=== PATIENT | male | born 1945 | race Caucasian/White ===

== ENCOUNTER 2021-09-06 05:12 | Outpatient (REF) | payer OTHER, SELFPAY ==
--- NOTE | ~2021-09-06 | XR_ITS ---
EXAMINATION: XR PELVIS XR HIP, RIGHT CLINICAL INFORMATION: Right hip pain. COMPARISON: None. TECHNIQUE: AP view the pelvis. AP and frog-leg lateral views of the right hip. FINDINGS: No acute fracture or dislocation. Severe right hip joint space narrowing with subchondral cirrhosis and subchondral cystic change. Prominent marginal osteophytes. Right femoral neck buttressing. Wlkbnueh-fj-mehycu left hip joint space narrowing with subchondral sclerosis and marginal osteophytes. Lateral acetabular subchondral cystic change. Atherosclerotic calcifications. XR/XR pelvis 1-2V IMPRESSION: Severe right and yhxltssy-ak-pbqeim left hip osteoarthritis.
--- NOTE | ~2021-09-06 | XR_ITS ---
EXAMINATION: XR KNEES AP STANDING, BILATERAL XR KNEE, 2 VIEWS, LEFT CLINICAL INFORMATION: Pain. COMPARISON: Left knee radiographs dated 12/21/2019 TECHNIQUE: Standing AP view of both knees and lateral and sunrise views of the left knee. FINDINGS: Right knee: Mild medial compartment joint space narrowing. Tiny medial and lateral compartment marginal osteophytes. No osseous erosion. No fracture or dislocation. Left knee: Total left knee arthroplasty. No acute osseous or hardware fracture. No perihardware lucency to suggest loosening or infection. No significant joint effusion. Superior patellar enthesophytes. XR/XR knee LT 2V IMPRESSION: Right knee: Mild medial and lateral compartment osteoarthritis, unchanged. Left knee: Total knee arthroplasty without evidence of hardware complication.
--- NOTE | ~2021-09-06 | XR_ITS ---
EXAMINATION: XR KNEES AP STANDING, BILATERAL XR KNEE, 2 VIEWS, LEFT CLINICAL INFORMATION: Pain. COMPARISON: Left knee radiographs dated 12/21/2019 TECHNIQUE: Standing AP view of both knees and lateral and sunrise views of the left knee. FINDINGS: Right knee: Mild medial compartment joint space narrowing. Tiny medial and lateral compartment marginal osteophytes. No osseous erosion. No fracture or dislocation. Left knee: Total left knee arthroplasty. No acute osseous or hardware fracture. No perihardware lucency to suggest loosening or infection. No significant joint effusion. Superior patellar enthesophytes. XR/XR knee standing BI IMPRESSION: Right knee: Mild medial and lateral compartment osteoarthritis, unchanged. Left knee: Total knee arthroplasty without evidence of hardware complication.
--- NOTE | ~2021-09-06 | XR_ITS ---
EXAMINATION: XR PELVIS XR HIP, RIGHT CLINICAL INFORMATION: Right hip pain. COMPARISON: None. TECHNIQUE: AP view the pelvis. AP and frog-leg lateral views of the right hip. FINDINGS: No acute fracture or dislocation. Severe right hip joint space narrowing with subchondral cirrhosis and subchondral cystic change. Prominent marginal osteophytes. Right femoral neck buttressing. Dgspuzpn-kr-yatgfb left hip joint space narrowing with subchondral sclerosis and marginal osteophytes. Lateral acetabular subchondral cystic change. Atherosclerotic calcifications. XR/XR hip RT min 2V IMPRESSION: Severe right and jexbwsvd-os-gqeakm left hip osteoarthritis.
== END 2021-09-06 05:13 | disposition home or self-care (01) ==
LOC: HO.HOSX 05:12
PROVIDERS: Visit Provider Physician Assistant
DX: T84.84XA Pain due to internal orthopedic prosthetic devices, implants and grafts, initial encounter (principal); M25.551 Pain in right hip; M25.561 Pain in right knee; M16.11 Unilateral primary osteoarthritis, right hip; Z96.652 Presence of left artificial knee joint
CPT/HCPCS: 72170; 73502; 73560; 73565; 99212

== ENCOUNTER → 2021-09-27 09:15 | Outpatient (BNVA) | payer OTHER, SELFPAY | PROVIDERS: PCP Internal Medicine; Visit Provider Orthopaedic Surgery | DX: M16.11 Unilateral primary osteoarthritis, right hip (principal); Z96.652 Presence of left artificial knee joint | CPT/HCPCS: 99212 ==

== ENCOUNTER → 2021-11-07 08:56 | Outpatient (BNVA) | payer OTHER, SELFPAY | PROVIDERS: Visit Provider Orthopaedic Surgery ==

== ENCOUNTER → 2021-12-06 08:46 | Outpatient (BNVA) | payer OTHER, SELFPAY | PROVIDERS: Visit Provider Physician Assistant | DX: M16.11 Unilateral primary osteoarthritis, right hip (principal) | CPT/HCPCS: 99212 ==

== ENCOUNTER 2021-12-14 06:33 | Inpatient (IN) | payer OTHER, SELFPAY ==
[2021-11-26 15:29] VITALS: BMI 25.8
[2021-11-27 11:58] VITALS: BP 144/78; PULSE 65; RESP 16; O2SAT 97
[2021-11-28 08:33] LABS: MRSA Nasal PCR NEGATIVE (Negative); SA Nasal PCR POSITIVE (Negative)
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
[2021-12-14] VITALS (18 sets, daily range): BP systolic 127–175; BP diastolic 63–90; PULSE 67–89; RESP 10–20; TEMP 36.2–36.8; O2SAT 94–99
--- NOTE | ~2021-12-14 | XR_ITS ---
EXAMINATION: XR PELVIS CLINICAL INFORMATION: Post right hip replacement COMPARISON: Previous x-ray August 2021 TECHNIQUE: AP view of the pelvis. FINDINGS: There is a new right hip replacement in satisfactory position. No fracture or dislocation is seen. Bones of the pelvis are unremarkable. There are degenerative changes of the left hip joint. There are new postsurgical changes to the soft tissues. XR/XR pelvis 1-2V IMPRESSION: Satisfactory appearance of right hip replacement.
[2021-12-14] MEDS: oxyCODONE HCl ER 10 MG TAB.ER.12H PO ×2 (06:45→20:40)
[2021-12-14 06:48] LABS: COVID-19 Test Negative (Negative)
[2021-12-14] MEDS: Lactated Ringers 1,000 ML 100 ML IVCONT (06:55)
--- NOTE | 2021-12-14 08:06 | MHC.SHP ---
Pre-Procedural Eval Section A Date of Service: 12/14/21 The patient is an INPATIENT: No Changes since office visit: Yes Patient answered all questions; No Cold of Flu in the past 2 weeks, No New Medical Problems and No Changes in Medication The History & Physical has been completed within 30 days and I have reviewed it.: Yes Section B Chief Complaint: RT ORQUIDEA Allergies: Allergies Allergy/AdvReac Type Severity Reaction Status Date / Time latex [LATEX] Allergy Intermediate RASH Verified 12/06/21 09:07 lisinopril Allergy Intermediate shortness Verified 12/06/21 09:07 of breath Plan I have reviewed the history and physical and performed a pertinent physical examination on my patient. No changes have occurred unless specified.
--- NOTE | 2021-12-14 10:09 | PM.OP ---
Brief Operative Note Date of Service: 12/14/21 Pre-op diagnosis: right hip OA Post-op diagnosis: same Procedure: Right ORQUIDEA Implants: John trident 2 56 with 20 post lip liner Accolade 2 #6 127 deg with + 5 36 mm ceramic head Surgeon: Dio Mcduffie MD Anesthesia: GETA and regional Was an Binding Printer used for this Procedure?: Yes Binding Printer: Kay Sandhu Estimated blood loss (mL): 300 IV fluids (mL): 1,000 Pathology: other Condition: stable Disposition: PACU
[2021-12-14] MEDS: fentaNYL citrate/PF 100 MCG/2 ML VIAL 25 MCG IVPUSH ×4 (10:11→12:30)
[2021-12-14] MEDS: Dextrose 5 % and 0.45 % NaCl 1,000 ML 80 ML IVCONT (10:35)
[2021-12-14] MEDS: oxyCODONE HCl Immed Release 5 MG TABLET PO ×2 (10:40→18:16)
[2021-12-14] MEDS: ceFAZolin Sodium/Dextrose,Iso 2 GM/50 ML PIGGYBACK IV (14:12)
--- NOTE | 2021-12-14 14:57 | MHC.CM.PN ---
CM ATTEMPTED TO MEET W/PT HOWEVER PT STILL IN PACU, REFERRAL SENT TO [facility] IN ANTIC OF W/E D/C.
[2021-12-14] MEDS: Acetaminophen 325 MG TABLET 650 MG PO (16:36)
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
[2021-12-14] MEDS: Celecoxib 200 MG CAPSULE PO (20:40)
[2021-12-14] MEDS: Docusate Sodium 100 MG CAPSULE PO (20:40)
[2021-12-14] MEDS: 0.9 % Sodium Chloride Flush 3 ML SYRINGE IVFLUSH (23:48)
[2021-12-15 04:00] VITALS: BP 130/60; PULSE 73; RESP 20; TEMP 36.5; O2SAT 96
[2021-12-15 06:15] LABS: Basophils Percent Auto 0.1 % (0-2); Hematocrit 34.7 % (42.0-52.0); Hemoglobin 11.8 g/dl (14.0-18.0); Imm Gran Abs Auto 0.05 X10*3/uL (0.00-0.03); Imm Gran Pct Auto 0.4 % (0.0-0.4); Lymphocytes Absolute Auto 1.3 X10*3/uL (1.2-4.9); Lymphocytes Percent Auto 9.2 % (20-40); MANUAL DIFF FLAG SCAN; Mean Corpuscular Hemoglobin 31.3 pg (27.0-33.0); Mean Platelet Volume 11.3 fL (9.4-12.4); Monocytes Absolute Auto 1.8 X10*3/uL (0.1-1.2); Monocytes Percent Auto 12.4 % (2-11); Neutrophils Percent Auto 77.9 % (45-73); Platelet Count 162 X10*3/uL (160-400); Red Blood Count 3.77 X10*6/uL (4.60-5.80); Red Cell Distribution Width 12.2 % (11.0-16.0); SCAN SMEAR FLAG 1; White Blood Count 14.2 X10*3/uL (4.8-10.8)
[2021-12-15 06:28] LABS: Anion Gap 13 (12-20); Blood Urea Nitrogen 26 mg/dL (9-16); Calcium 8.9 mg/dL (8.4-10.2); Carbon Dioxide 23 mmol/L (22-29); Chloride 104 mmol/L (96-108); Creatinine Clr Calc Pharmacy 56.9; Estimated Glomerular Filt Rate > 60; Glucose Fasting 197 mg/dL (60-99); Potassium 4.4 mmol/L (3.3-5.1); Sodium 136 mmol/L (135-145)
[2021-12-15 06:36] LABS: SLIDE REVIEW VERIFIED
[2021-12-15 07:46] VITALS: BP 130/60; PULSE 73; O2SAT 96
[2021-12-15 08:00] VITALS: BP 126/61; PULSE 80; RESP 20; TEMP 36.5; O2SAT 95
--- NOTE | 2021-12-15 08:47 | MHC.CM.PN ---
PATIENT WILL RETURN HOME TODAY WITH [facility] FOR HOME PHYSICAL AND OCCUPATIONAL SERVICES. RN AWARE OF PLAN. PATIENT HAS TRANSPORT HOME
[2021-12-15] MEDS: oxyCODONE HCl ER 10 MG TAB.ER.12H PO (08:57)
[2021-12-15] MEDS: Celecoxib 200 MG CAPSULE PO (08:57)
[2021-12-15] MEDS: Docusate Sodium 100 MG CAPSULE PO (08:57)
[2021-12-15] MEDS: 0.9 % Sodium Chloride Flush 3 ML SYRINGE IVFLUSH (08:58)
--- NOTE | 2021-12-15 09:15 | P.F2F_ITS ---
Service Date Service Date: 12/15/21 Encounter Date of encounter: 12/15/21 Reasons for Services Signs and symptoms assessed: Pt. is considered homebound due to recent surgery. Unable to drive, poor balance, poor gait mechanics. Reason for physical therapy: home safety and mobility, therapeutic exercises, restore joint function, gait/transfer training and ADL training Reason for occupational therapy: home safety and mobility, therapeutic exercises, restore joint function, gait/transfer training and ADL training Homebound: Leaving the home is medically contraindicated at this time without the asist of a device and/or another person due th the listed conditions above and below. Reason homebound: unsteady gait / fall risk, leg weakness, pain with ambulation, pain with transfers, poor balance / fall risk and unable to drive Homebound supporting statement: Pt. is considered homebound due to recent surgery. Unable to drive, poor balance, poor gait mechanics. Certification: Based on the above findings, I certify that this patient is confined to the home and needs intermittent halfway care, physical therapy and/or speech therapy, or continues to need occupational therapy. The patient is under my care, and I have initiated the establishment of the plan of care. The patient will be followed by a physician who will periodically review the plan of care.
--- NOTE | 2021-12-15 09:16 | PM.DS ---
DS: Providers Provider Date of Service: 12/15/21 Date of admission: 12/14/21 06:33 Primary care physician: Leonel Contreras Consults: 12/14/21 16:01 Consult to Hospitalist Routine Consulting Provider: Hospitalist Reason For Exam: s/p RTHA routine medical management DS: Diagnosis Discharge Diagnosis (1) Osteoarthritis of right hip: Status: Acute (2) Fluctuating blood pressure: Status: Acute DS: Summary Hospital Course Hospital Course: The patient underwent a successful Right total hip arthroplasty, they were transferred to PACU and then to the floor to recover. During their stay, their vitals were stable, afebrile at 97.7. Labs were unremarkable, H/H 11.8/34.7. POD 1 they were started on Aspirin 325mg po bid for DVT ppx, they also received Physical Therapy services twice a day. Prior to discharge, their dressing was changed, incision clean dry and intact, new Aquacel dressing applied and the plan was to be discharged home with [facility] services. Time Spent with Patient Time attestation: Total time spent providing and/or coordinating discharge services: Discharge coordination time: Less than 30 minutes Quality: Stroke Does the patient have a stroke diagnosis?: No Physical Exam Vital Signs: Vital Signs: Last Vital Signs Temp 97.7 F 12/15/21 08:00 Pulse 80 12/15/21 08:00 Resp 20 12/15/21 08:00 BP 126/61 12/15/21 08:00 Pulse Ox 95 12/15/21 08:00 BMI result Body Mass Index 25.8 Const: General: cooperative, healthy appearing and no acute distress Resp: Effort & Inspection: normal respiratory effort and able to speak in complete sentences Cardio: Rate: regular rate Peripheral pulses: Peripheral pulses 2+ throughout GI: Palpation (GI): Soft to palpation Skin: Lesions: no lesions Rashes: no rashes Extrem: Other: Left hip amanda intact. No erythema or drainage. New Aquacel dressing applied. Patient is able to stand and ambulate. Sensation intact. DS: Data Data Completed and Pending Pending studies at discharge: Pending at discharge 12/14/21 09:34 Surgical [PTH] Routine Labs on day of discharge: Laboratory Results - last 24 hr 12/15/21 12/15/21 05:56 05:56 WBC 14.2 H RBC 3.77 L Hgb 11.8 L Hct 34.7 L MCV 92.0 MCH 31.3 MCHC 34.0 RDW 12.2 Plt Count 162 MPV 11.3 Immature Gran % (Auto) 0.4 Neut % (Auto) 77.9 H Lymph % (Auto) 9.2 L [place] % (Auto) 12.4 H Eos % (Auto) 0.0 Baso % (Auto) 0.1 Lymph # (Auto) 1.3 [place] # (Auto) 1.8 H Eos # (Auto) 0.0 Baso # (Auto) 0.0 Abs Immat Gran (auto) 0.05 H Absolute Neuts (auto) 11.0 H Absolute Nucleated RBC 0.000 Nucleated RBC % (auto) 0.0 Smear Tech's Comments VERIFIED Sodium 136 Potassium 4.4 Chloride 104 Carbon Dioxide 23 Anion Gap 13 BUN 26 H Creatinine 1.12 Estim Creat Clear Calc 56.9 Estimated GFR > 60 Fasting Glucose 197 H Calcium 8.9 Discharge Plan Discharge Patient Disposition: Home Health Service Discharge Diagnosis: s/p RTHA Referrals: [facility] [Outside] - 1 Week Kay Sandhu PA-C [Physician Rent And Housing Investigator] - 1 Week (12/27/20 at 10:00am with your first physical therapy visit in the orthopedics office ) Discharge Medications: New acetaminophen 325 mg Tablet 650 mg PO Q6H PRN (Reason: Pain, Mild (Pain Scale 1-3)) 30 Days Qty: 240 RF: 0 celecoxib 200 mg Capsule 200 mg PO BID 30 Days Qty: 60 RF: 0 docusate sodium 100 mg Capsule 100 mg PO BID 30 Days Qty: 60 RF: 0 oxycodone 5 mg Tablet 5 mg PO Q4H PRN (Reason: Pain, Moderate (Pain Scale 4-6) 7 Days Qty: 42 RF: 0 Discharge Orders: Discharge Order (Routine); Ordered 12/15/21 Ordered By: Kay Sandhu Diet: regular diet Activity on Discharge: Use cane or walker Stand Alone Forms: Patient Portal Discharge page Care Plan Goals: restore fxn to rt hip Health Concerns: none Plan of Treatment: Physical Therapy for total hip arthroplasty: posterior precautions, gait training, ROM, strength Limit stair climbing No showering, no tub bath-keep dressing clean, dry and intact No driving x6 weeks Continue aspirin tabs twice a day x 6 weeks Follow up with [facility] Orth[facility] in 2 weeks Assessment: table for d/c
--- NOTE | 2021-12-17 07:22 | HO.POSTANES ---
Post Anesthesia Evaluation Post Anesthesia Evaluation Anesthesia: General LMA Mental Status: Awake Pain Control: Satisfactory Nausea/Vomiting: None Hydration: Adequate Anesthesia-Related Issues: No Anes. Related Issues
--- NOTE | 2021-12-18 14:08 | W.PM.OPN ---
Operative Note Operative Note Date of Service: 12/14/21 Narrative: Date of Service: 12/14/21 Pre-op diagnosis: right hip OA Post-op diagnosis: same Procedure: Right ORQUIDEA Implants: Goree trident 2 56 with 20 post lip liner Accolade 2 #6 127 deg with + 5 36 mm ceramic head Surgeon: Dio Mcduffie MD Anesthesia: GETA and regional Was an Principal Consultant used for this Procedure?: Yes Principal Consultant: Kay Sandhu Estimated blood loss (mL): 300 IV fluids (mL): 1,000 Pathology: other Condition: stable Disposition: PACU Procedure in detail: Patient was brought into the operating room and placed in the left lateral decubitus position. All bony prominences were well padded and the limb was prepped and draped in standard sterile fashion. Time-out was called to identify proper site procedure proper surgeon IV antibiotics and 1 g of transaxemic acid were administered. I began by making a curvilinear incision over the posterolateral aspect of the greater trochanter. Dissection was taken down to the tensor fascia which was incised in line with the incision and a Charnley retractor was placed. Cautery was used to maintain hemostasis. A werewolf device was also used. The hip was internally rotated and the external rotators were identified. The vessels were cauterized and a full-thickness capsular/external rotator layer was developed starting just proximal to the piriformis. This layer was tagged and a dull Hohmann retractor was placed underneath the neck in the hip was dislocated. The head waseburnated and defromed. A neck cut was made 1 cm proximal to the lesser trochanter and the head and neck were removed and measured as a 52 on the back table. I started with a 46 and sequentially reamed up to a size 56 and impacted a 56 cup_ at approximately 45 degrees of inclination and 25 degrees of version. I then placed a20 deg posterior lipped liner and turned my attention to the femur. I identified the piriformis insertion and used this as a starting point for my janie cutter. The medius tendon was protected with a Hibs retractor. I then used a Charnley awl to identify the canal and a curved curette to remove the lateral bone. I irrigated copiously. I then sequentially broached in the patient's natural version to a size #6 and placed my trial implants. Using a trail head I took the hip through range of motion. I was very satisfied with the stability and length. Therefore I removed all instrumentation and copiously irrigated. I placed my final femoral implant and again took the hip through range of motion and was satisfied with the stability and length using a +5 implant. I then placed my final ceramic femoral head. I then irrigated for 3 minutes with iodine and placed 1 g of local tranaxemic acid. I then performed a capsular closure with 2.0 fiberwire, Rodri's fascia with 0 Vicryl, subcuticular with 2-0 Vicryl and the skin with amanda. Patient was placed into a sterile dressing. Radiographs were obtained at the completion of the case and I was satisfied with the component position. Patient was extubated brought to the recovery room in stable condition.
== END 2021-12-15 10:18 | disposition home health service (06) | DRG 470 ==
LOC: HO.SSSA 06:35 → HO.S3 14:33
PROVIDERS: Nurse Practitioner; Physician Assistant; Admitting Provider Orthopaedic Surgery; PCP Internal Medicine; Visit Provider Orthopaedic Surgery
PROC: 0SR903A Replacement of Right Hip Joint with Ceramic Synthetic Substitute, Uncemented, Open Approach (ICD-10-PCS; CPT 27130; principal; 2021-12-14 08:00)
DX: M16.11 Unilateral primary osteoarthritis, right hip (principal); Z96.651 Presence of right artificial knee joint; Z87.891 Personal history of nicotine dependence; Z91.040 Latex allergy status; Z20.822 Contact with and (suspected) exposure to COVID-19
CPT/HCPCS: 36415; 72170; 80048; 85025; 86850; 86900; 86901; 87635; 87640; 87641; 88304; 88311; 97162; C1713; C1776; J0131; J0690; J1100; J1170; J2250; J2405; J3010

== ENCOUNTER → 2021-12-31 09:52 | Outpatient (BNVA) | payer OTHER, SELFPAY | PROVIDERS: PCP Internal Medicine; Visit Provider Physician Assistant | DX: Z47.1 Aftercare following joint replacement surgery (principal); Z96.641 Presence of right artificial hip joint | CPT/HCPCS: 99212 ==

== ENCOUNTER 2022-01-29 09:00 | Outpatient (RCR) | payer MEDICARE, SELFPAY ==
--- NOTE | 2021-12-31 11:08 | MHC.PT.EP ---
[place] Office [place] Office [place] Office [address] Caren Chavez [address] [phone] F: [phone] F: [phone] F: [phone] F: [phone] Physical Therapy Plan of Care Date of Evaluation: Date of Surgery: 12/18/21 Diagnosis: Assessment: VICTORIA IS A PLEASANT 76 YO MALE WHO PRESENTS S/P RIGHT ORQUIDEA 12/14. UPON EXAM HE DEMONSTRATES IMPAIRMENTS INCLUDING DECREASED HIP STRENGTH AND ROM, ALTERED GAIT AND BALANCE, ALTERED SOFT TISSUE INTERGRITY, INCREASED DISCOMFORT. FUNCTIONAL LIMITTIONS INCLUDE DECREASED ABILITY TO PERFOMR WALKING LONG DISTANCES, PUSHING, PULLING, LIFTING AND CARRYING, DECREASED ABILITY TO PERFORM RECIPROCAL GAIT ON STAIRS. HE REPORTS DECREASED ABILITY TO PERFORM RECREATIONAL AND COMMUNITY ACTIVITIES. HE REPORTS SOME DIFFICULTY SLEEPING. A PT IS A GOOD CANDIDATE FOR SKILLED PT DUE TO AGE, POTENTIAL REMEDIATION OF IMPAIRMENTS, TYPICAL DISEASE/CONDITION PROGRESSION AND PROGNOSIS, COMORBIDITIES, AND MOTIVATION. PT WOULD BENEFIT FROM TAILORED PROGRAM OF THERAPEUTIC ACTIVITIES, FUNCTIONAL TRAINING, GAIT TRAINING, POSTURAL EDUCATION, NEUROMUSCULAR RE-EDUCATION, AND MODALITIES NEEDED. Frequency and Duration: The patient will be seen 2 X WEEK X 4 WEEKS Short Term Goals: INITIATE HEP AND PROMOTE SELF MANAGEMENT OF SYMPTOMS IN 2 VISITS Senior Living Goals: IN 6 WEEKS: TO DEMONSTRATE FULL HIP ROM, MAINTAINING PRECAUTIONS TO DEMONSTRATE FULL LE STRENGTH, EQUAL PAL TO ASCEND AND DESCEND STAIRS WITHOUT PAIN TO AMBULATE AD BOBO ON LEVEL AND UNEVEN SURFACES FOR FITNESS, A MINIMUM OF 30 MINUTES, WITHOUT PAIN GREATER THAN 2/10 TO PERFORM PARTIAL RANGE FUNCTIONAL SQUAT WITHOUT SUBSTITUTION MAINTAINING PRECAUTIONS TO RETURN TO LIGHT HIKING WITHOUT RESTRICTION Treatment Plan: Modalities to reduce pain, spasms and effusion. Manual therapy to restore motion and function. Therapeutic exercise to improve strength and flexibility. Neuromuscular re-education for posture and balance. Therapeutic activities to return to functional activities of daily living. Electronically signed by: TAI POWER PT, DPT Please sign and return to therapist. Thank you for your referral.
--- NOTE | 2022-01-29 15:34 | MHC.PT.OD ---
[facility] [place] Office [place] Office [address] Caren Chavez [address] [phone] F: [phone] F: [phone] F: [phone] F: [phone] Physical Therapy Daily Note Diagnosis: S/P TIGHT ORQUIDEA, POSTERIOR APPROACH Date of Surgery: 12/18/21 Date of Evaluation: 12/31/21 Date of Treatment: 01/29/22 Treatments to Date: 5 Cancellations to Date: 0 No Shows to Date: 0 Authorized Visits: Insurance End Date: Precautions/ Contraindications:POSTERIOR APPROCH ORQUIDEA Subjective: Reports has been having ongoing L knee pain, was trying to walk 40 minute increments several times daily, has been icing hip sometimes, not icing knee consistently Follow up with orthopedics on 02/11/22 Pain Score and Location: 2 RIGHT POSTEROLATERAL HIP Objective Flowsheet: Tests & Measures TTP anterior lateral left knee Advised to refrain from wall squat, encouraged increased stretching of HS and ITB region of L thigh, reviewed rolling with use of rolling pin manually, backing off on ramping multiple duration of hills/walking. Exercises Education reiterated today with patient and regarding current status and home program. Pt reports ongoing L anterior knee pain- was advised to stretch L HS and ITB, complete SLR for strength and progress as tolerated. Pt reports he walked 40 minutes 2x daily and was going to try for a third round. Pt educated he needs to give mm time and recover gradually with progression of home program. Pt request to review verbally today- did not complete in office- SLR into flexion reviewed for L LE (advised to hold for R LE due to flare of sx), LAQ for R LE only (held due to L LE due to flare of L knee sx last week), SL hip abd with pillow between knees bilaterally x 2 set 10R, review of standing chair squat with cues for hand placement education for modification being aware of hip angle, Education for gentle and gradual walking program, pt expressing has been walking 40 minutes several times daily. Therapist encouraged to back from walking multiple times daily as this appeared to be a trigger for his knee, encouraged stretching and icing as able. REVIEW 01/24 TOTAL HIP POSTERIOR PRECAUTIONS WITH HIREN PRESENT FOR EDUCATION WELL REVIEWED safety with BED MOBILITY, USE OF PILLOW BETWEEN KNEES PT INQUIRED ABOUT USE OF RECUMBNET TRIKE AT HOME- ADVISED TO HOLD FROM USE DUE TO CONCERN FOR BREACH OF POSTERIOR PRECAUTION- EDUCATED RE ICE POSTERIOR AND ANTERIOR HIP X 10 MINUTES PRN FOR EDEMA/PAIN MANAGEMENT DISCUSSED WALKING ON FLAT TERRAIN BUILDING ENDURANCE/DISTANCE FIRST VS BEFORE ATTEMPING HILLS, EDUCATION BUILDING WALKING PROGRAM GRADUALLY Pt deferred icing today to home, reeducated importance of stretching/icing post walking program Positioned in SL for flexbar STM to proximal /posterior hip region with education for home, self care with pillow between the knees. Modalities Assessment: 01/29/22 Pt reports ongoing L knee pain, resolution of R groin pain since last week. Pt has resumed walking program but was educated in the importance of gradual progression of distance/time with his walks gradually continue flexibility for HS and L ITB, expresses concern for L TKA status. Pt educated that therapist feels his sx are related to tightness and tension of mm strength of L quad. His also reports she has not been icing knee>hip as much as often, encouraged to continue compliance, especially after HEP/walking program. 01/22/22: Pt's L HS tight compared to R, weakness with SLR on L. Advised to hold on R SLR due to intermittent groin pain reported. Trial ROCKTAPE application for L knee to ease anterior knee pain with (+) outcomes. Pt reports sometimes uses supportive sleeve on L knee, to bring next session. Upon review of HEP program, pt was performing exercises quickly, present for home program with positive carryover of proper technique. 01/15/22 Pt presents with sneakers with elastic laces, demonstrates good carryover of precautions however has reported waking in AM with legs crossed over one another despite use of pillows at times. Reiterated avoidance of trike and encouraged gradual progression of home program. Pt educated re: avoidance of HEP activities which trigger any groin pain, reviewed stair sequencing, , benefits of icing, and building walking distance gradually. Presents without use of std cane, good carryover of HEP program with Hiren present who also was educated with technique. Good safety insight for gentle home program. 01/07/22 PT EDUCATED ALONGSIDE HIREN RE: HEP AND SAFETY IN REGARD TO HEP/QUESTIONS HE HAD, EDUCATED TO HOLD FROM USE OF TRIKE RECUMBENT BIKE DUE TO CONCERN FOR BREECH OF POSTERIOR PRECAUTIONS- PT TO BE SEEN IN THERAPY 1X/WEEK FOR NOW WITH PROGRESSIVE HOME PROGRAM. VICTORIA IS A PLEASANT 76 YO MALE WHO PRESENTS S/P RIGHT ORQUIDEA 12/14. UPON EXAM HE DEMONSTRATES IMPAIRMENTS INCLUDING DECREASED HIP STRENGTH AND ROM, ALTERED GAIT AND BALANCE, ALTERED SOFT TISSUE INTERGRITY, INCREASED DISCOMFORT. FUNCTIONAL LIMITTIONS INCLUDE DECREASED ABILITY TO PERFOMR WALKING LONG DISTANCES, PUSHING, PULLING, LIFTING AND CARRYING, DECREASED ABILITY TO PERFORM RECIPROCAL GAIT ON STAIRS. HE REPORTS DECREASED ABILITY TO PERFORM RECREATIONAL AND COMMUNITY ACTIVITIES. HE REPORTS SOME DIFFICULTY SLEEPING. A PT IS A GOOD CANDIDATE FOR SKILLED PT DUE TO AGE, POTENTIAL REMEDIATION OF IMPAIRMENTS, TYPICAL DISEASE/CONDITION PROGRESSION AND PROGNOSIS, COMORBIDITIES, AND MOTIVATION. PT WOULD BENEFIT FROM TAILORED PROGRAM OF THERAPEUTIC ACTIVITIES, FUNCTIONAL TRAINING, GAIT TRAINING, POSTURAL EDUCATION, NEUROMUSCULAR RE-EDUCATION, AND MODALITIES NEEDED. PT Plan: Pt electing to cancel all other appts at PT at this , due to I HEP. Pt has a follow up on 02/11. Pt has been advised to hold from use of trike due to concern for posterior precautions- please advise. Short Term Goals: INITIATE HEP AND PROMOTE SELF MANAGEMENT OF SYMPTOMS IN 2 VISITS Retirement Goals: IN 6 WEEKS: TO DEMONSTRATE FULL HIP ROM, MAINTAINING PRECAUTIONS TO DEMONSTRATE FULL LE STRENGTH, EQUAL PAL TO ASCEND AND DESCEND STAIRS WITHOUT PAIN TO AMBULATE AD BOBO ON LEVEL AND UNEVEN SURFACES FOR FITNESS, A MINIMUM OF 30 MINUTES, WITHOUT PAIN GREATER THAN 2/10 TO PERFORM PARTIAL RANGE FUNCTIONAL SQUAT WITHOUT SUBSTITUTION MAINTAINING PRECAUTIONS TO RETURN TO LIGHT HIKING WITHOUT RESTRICTION Electronically signed by: Audrey Whitman, PT, DPT
== END 2022-06-07 13:53 | disposition home or self-care (01) ==
LOC: HO.PTWFD 09:00
PROVIDERS: Visit Provider Physician Assistant
DX: Z98.890 Other specified postprocedural states (principal)
CPT/HCPCS: 97110; 97140; 97161; 97530

== ENCOUNTER 2022-02-11 07:49 | Outpatient (REF) | payer MEDICARE, SELFPAY ==
--- NOTE | ~2022-02-11 | XR_ITS ---
EXAMINATION: XR HIP, RIGHT CLINICAL INFORMATION: Right hip pain COMPARISON: None TECHNIQUE: Two views of the right hip. FINDINGS: There is a total right hip prosthesis with prosthetic components in satisfactory alignment. Mild loss of left hip joint space is seen. SI joints are symmetrical and normal. AP and frog-leg views right hip reveal normal alignment of the right hip prosthesis without any periprosthetic loosening or fracture. The soft tissues are normal. XR/XR hip RT w PEL1V IMPRESSION: Mild degenerative changes left hip joint. Total right hip prosthesis with prosthetic components in satisfactory alignment.
== END 2022-02-11 07:50 | disposition home or self-care (01) ==
LOC: HO.HOSX 07:49
PROVIDERS: Visit Provider Physician Assistant
DX: Z47.1 Aftercare following joint replacement surgery (principal); Z96.641 Presence of right artificial hip joint
CPT/HCPCS: 73502; 99212

== ENCOUNTER → 2022-03-25 09:15 | Outpatient (BNVA) | payer MEDICARE, SELFPAY | PROVIDERS: Visit Provider Orthopaedic Surgery | DX: Z47.1 Aftercare following joint replacement surgery (principal); Z96.641 Presence of right artificial hip joint | CPT/HCPCS: 99212 ==

== ENCOUNTER 2022-05-10 07:22 | Outpatient (REF) | payer MEDICARE, SELFPAY ==
[2022-05-10 11:14] LABS: MANUAL DIFF FLAG NO
[2022-05-10 11:30] LABS: Basophils Percent Auto 0.4 % (0-2); Eosinophils Absolute Auto 0.1 X10*3/uL (0.0-0.4); Eosinophils Percent Auto 1.9 % (0-4); Hemoglobin 13.7 g/dl (14.0-18.0); Imm Gran Abs Auto 0.01 X10*3/uL (0.00-0.03); Imm Gran Pct Auto 0.2 % (0.0-0.4); Lymphocytes Absolute Auto 2.1 X10*3/uL (1.2-4.9); Lymphocytes Percent Auto 39.4 % (20-40); Mean Corpuscular HGB Conc 33.4 g/dl (31.0-36.0); Mean Corpuscular Hemoglobin 30.1 pg (27.0-33.0); Mean Corpuscular Volume 90.1 fL (80.0-98.0); Mean Platelet Volume 12.4 fL (9.4-12.4); Monocytes Absolute Auto 0.6 X10*3/uL (0.1-1.2); Monocytes Percent Auto 11.6 % (2-11); Neutrophils Absolute Auto 2.5 x10*3/uL (2.0-8.3); Neutrophils Percent Auto 46.5 % (45-73); Platelet Count 195 X10*3/uL (160-400); Red Blood Count 4.55 X10*6/uL (4.60-5.80); Red Cell Distribution Width 12.7 % (11.0-16.0); White Blood Count 5.3 X10*3/uL (4.8-10.8)
[2022-05-10 12:00] LABS: Alanine Aminotransferase 16 U/L (0-40); Albumin Level 4.4 g/dL (3.5-5.0); Alkaline Phosphatase 72 U/L (39-117); Anion Gap 12 (12-20); Aspartate Amino Transferase 28 U/L (5-37); Bilirubin Total 0.9 mg/dL (0.0-1.0); Blood Urea Nitrogen 19 mg/dL (9-16); Calcium 9.2 mg/dL (8.4-10.2); Carbon Dioxide 25 mmol/L (22-29); Chloride 106 mmol/L (96-108); Cholesterol 208 mg/dL; Estimated Glomerular Filt Rate > 60; Glucose Fasting 112 mg/dL (60-99); HDL Cholesterol 43 mg/dL; LDL Cholesterol Calculated 145 mg/dl; Potassium 4.4 mmol/L (3.3-5.1); Sodium 139 mmol/L (135-145); Total Protein 7.6 g/dL (6.5-8.0); Triglycerides 102 mg/dL
[2022-05-10 12:02] LABS: Prostate Specific Antigen Scr 1.38 ng/mL (<0.05-4.0); TSH reflex Free T4 1.62 uIU/mL (0.32-4.0)
== END 2022-05-10 07:23 | disposition home or self-care (01) ==
LOC: HO.WFDLDS 07:22
PROVIDERS: Visit Provider Family Medicine
DX: Z00.00 Encounter for general adult medical examination without abnormal findings (principal); Z12.5 Encounter for screening for malignant neoplasm of prostate
CPT/HCPCS: 36415; 80053; 80061; 84153; 84443; 85025

== ENCOUNTER → 2022-05-13 12:18 | Outpatient (BNVA) | payer MEDICARE, SELFPAY | PROVIDERS: PCP Family Medicine; Visit Provider Physician Assistant | DX: T84.84XA Pain due to internal orthopedic prosthetic devices, implants and grafts, initial encounter (principal); Z96.652 Presence of left artificial knee joint | CPT/HCPCS: 99212 ==

== ENCOUNTER 2022-08-23 11:04 | Outpatient (REF) | payer MEDICARE, SELFPAY ==
[2022-08-23 14:10] LABS: MANUAL DIFF FLAG NO
[2022-08-23 14:19] LABS: Basophils Percent Auto 0.4 % (0-2); Eosinophils Percent Auto 0.9 % (0-4); Hematocrit 42.8 % (42.0-52.0); Hemoglobin 14.5 g/dl (14.0-18.0); Imm Gran Abs Auto 0.01 X10*3/uL (0.00-0.03); Imm Gran Pct Auto 0.2 % (0.0-0.4); Immature Retic Fraction 5.2 % (2.3-13.4); Lymphocytes Absolute Auto 1.6 X10*3/uL (1.2-4.9); Lymphocytes Percent Auto 34.8 % (20-40); Mean Corpuscular HGB Conc 33.9 g/dl (31.0-36.0); Mean Corpuscular Hemoglobin 30.7 pg (27.0-33.0); Mean Corpuscular Volume 90.5 fL (80.0-98.0); Mean Platelet Volume 11.9 fL (9.4-12.4); Monocytes Absolute Auto 0.5 X10*3/uL (0.1-1.2); Monocytes Percent Auto 11.4 % (2-11); Neutrophils Absolute Auto 2.4 x10*3/uL (2.0-8.3); Neutrophils Percent Auto 52.3 % (45-73); Platelet Count 231 X10*3/uL (160-400); Red Blood Count 4.73 X10*6/uL (4.60-5.80); Red Cell Distribution Width 11.9 % (11.0-16.0); Retic HGB Equivalent 37.8 pg (30.0-35.0); Reticulocyte Percent 0.9 % (0.5-1.8); Reticulocytes Absolute 0.044 X10*6/uL (0.026-0.095); White Blood Count 4.6 X10*3/uL (4.8-10.8)
[2022-08-23 14:52] LABS: Iron 111 mcg/dL (45-160); Percent Iron Saturation 35 % (15-50); Total Iron Binding Capacity 319 mcg/dL (228-428); Unsaturated Iron Binding 208 ug/dL
[2022-08-23 15:13] LABS: Ferritin 163 ng/mL (20-250)
[2022-08-23 15:26] LABS: Folate 13.4 ng/mL (> or = 4.0); Vitamin B12 501 pg/mL (200-900)
== END 2022-08-23 11:05 | disposition home or self-care (01) ==
LOC: HO.WFDLDS 11:04
PROVIDERS: Visit Provider Family Medicine
DX: Z00.00 Encounter for general adult medical examination without abnormal findings (principal); D64.9 Anemia, unspecified; E53.8 Deficiency of other specified B group vitamins
CPT/HCPCS: 36415; 82607; 82728; 82746; 83540; 85025; 85045

== ENCOUNTER 2023-04-28 14:28 | Emergency (ER) | payer MEDICARE, SELFPAY ==
--- NOTE | ~2023-04-28 | XR_ITS ---
EXAMINATION: XR CHEST CLINICAL INFORMATION: Chest pain COMPARISON: None available. TECHNIQUE: 2 views of the chest were obtained. FINDINGS: No significant abnormality is noted involving the heart, lungs, mediastinum, bony thorax or soft tissues. There is a question of some Mitch B lines present at the right lung base but there is no interstitial edema, pleural effusions or CHF.. XR/XR chest 2V IMPRESSION: No acute intrathoracic disease.
--- NOTE | 2023-04-28 14:30 | ECG_ITS ---
Test Reason : CP Blood Pressure : / mmHG Vent. Rate : 104 BPM Atrial Rate : 108 BPM P-R Int : 184 ms QRS Dur : 148 ms QT Int : 378 ms P-R-T Axes : 000 -47 104 degrees QTc Int : 497 ms Sinus tachycardia Left axis deviation Left bundle branch block Abnormal ECG No previous ECGs available Referred By: Generic ED Physician Electronically Signed By:Joseph Dlegado
[2023-04-28 16:41] VITALS: BP 155/102; PULSE 109; RESP 17; TEMP 36.1; O2SAT 97; BMI 26.9
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
[2023-04-28 17:56] VITALS: BP 147/97; PULSE 96; RESP 18; TEMP 37; O2SAT 98
--- NOTE | 2023-04-28 17:57 | MHC.EDTECH ---
PT BLOOD DRAWN AND SENT TO LAB ,VITALS SIGN RE CHECK .
[2023-04-28 18:13] LABS: MANUAL DIFF FLAG NO
[2023-04-28 18:28] LABS: Anion Gap 16 (12-20); Blood Urea Nitrogen 22 mg/dL (9-16); Calcium 9.6 mg/dL (8.4-10.2); Carbon Dioxide 22 mmol/L (22-29); Chloride 109 mmol/L (96-108); Estimated Glomerular Filt Rate > 60; Glucose Random 110 mg/dL (60-115); Potassium 5.7 mmol/L (3.3-5.1); Sodium 141 mmol/L (135-145)
[2023-04-28 18:30] LABS: Basophils Percent Auto 0.3 % (0-2); Eosinophils Percent Auto 0.5 % (0-4); Hematocrit 41.9 % (42.0-52.0); Hemoglobin 13.9 g/dl (14.0-18.0); Imm Gran Abs Auto 0.01 X10*3/uL (0.00-0.03); Imm Gran Pct Auto 0.2 % (0.0-0.4); Lymphocytes Absolute Auto 1.3 X10*3/uL (1.2-4.9); Lymphocytes Percent Auto 19.2 % (20-40); Mean Corpuscular HGB Conc 33.2 g/dl (31.0-36.0); Mean Corpuscular Hemoglobin 30.5 pg (27.0-33.0); Mean Corpuscular Volume 92.1 fL (80.0-98.0); Mean Platelet Volume 11.6 fL (9.4-12.4); Monocytes Absolute Auto 0.6 X10*3/uL (0.1-1.2); Monocytes Percent Auto 9.5 % (2-11); Neutrophils Absolute Auto 4.7 x10*3/uL (2.0-8.3); Neutrophils Percent Auto 70.3 % (45-73); Platelet Count 172 X10*3/uL (160-400); Red Blood Count 4.55 X10*6/uL (4.60-5.80); White Blood Count 6.6 X10*3/uL (4.8-10.8)
[2023-04-28 18:31] LABS: INTERNATIONAL NORM RATIO 1.3 (0.9-1.1); Prothrombin Time 15.3 SEC (10.0-13.1)
[2023-04-28 18:37] LABS: Troponin-I High Sensitivity 21.1 ng/L (<3.5-35.0)
[2023-04-28 19:03] LABS: B Type Natriuretic Peptide 497 pg/mL (<100)
== END 2023-04-29 00:21 | disposition left against medical advice (07) ==
LOC: HO.ED 04-29 00:13
PROVIDERS: Physician Assistant Medical; Emergency Provider Emergency Medicine; PCP Family Medicine
DX: R07.9 Chest pain, unspecified (principal); R06.02 Shortness of breath; Z87.891 Personal history of nicotine dependence
CPT/HCPCS: 36415; 71046; 80048; 83880; 84484; 85025; 85610; 93005; 99283

== ENCOUNTER 2023-05-13 11:04 | Outpatient (REF) | payer MEDICARE, SELFPAY | END 2023-05-13 11:05 | disposition home or self-care (01) | LOC: HO.WFDLDS 11:04 | PROVIDERS: Visit Provider Family Medicine | DX: I50.9 Heart failure, unspecified (principal) | CPT/HCPCS: 36415; 80053; 83880 ==

== ENCOUNTER 2023-05-30 09:42 | Outpatient (REF) | payer MEDICARE, SELFPAY | END 2023-05-30 09:43 | disposition home or self-care (01) | LOC: CF 09:42 | PROVIDERS: PCP Family Medicine; Visit Provider Internal Medicine Cardiovascular Disease | DX: I50.9 Heart failure, unspecified (principal); I48.92 Unspecified atrial flutter | CPT/HCPCS: 36415; 80053; 83880; 93005; 99202 ==

== ENCOUNTER 2023-06-04 16:10 | Outpatient (AMB) | payer MEDICARE, SELFPAY ==
[2023-06-04 16:26] VITALS: BP 124/72; PULSE 74; O2SAT 97; BMI 24.5
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
== END 2023-06-04 17:14 | disposition home or self-care (01) ==
PROVIDERS: PCP Internal Medicine; Visit Provider Family Medicine
DX: I50.9 Heart failure, unspecified (principal); I48.92 Unspecified atrial flutter
CPT/HCPCS: 99213

== ENCOUNTER → 2023-06-06 14:12 | Outpatient (REF) | payer MEDICARE, SELFPAY ==
--- NOTE | 2023-06-06 14:14 | CA_ITS ---
Transthoracic Echocardiogram Patient (Last, First, Middle): Leandro Fernandez, Gender: Male Date of : 1945 Age: 78 Procedure Date: 06/06/2023 Procedure Type: Transthoracic Echocardiogram Location: OP Height: 175.26 cm Weight: 74.84 kg BSA: 1.90 m2 Heart Rate: 110 bpm BP: 125 / 75 mmHg Paper Mill Manager: BRITNEY Referring MD: Phillip Reid MD Associate Team Physician: Lyle Islas MD Symptoms: R06.02 - Shortness of breath Study Quality: Adequate ECG Rhythm: Atrial flutter Conclusions: - 1. Severe LV systolic dysfunction with LV ejection fraction 15 20% 2. Moderately reduced right ventricular systolic function 3. Mildly dilated left atrium 4. Normal cardiac valvular Dopplers 5. Normal RV systolic pressure 6. No gross pericardial effusion Findings Left Ventricle Normal left ventricular cavity size. There is mildly increased left ventricular wall thickness. The left ventricular systolic function is severely decreased. The visually estimated ejection fraction is between 15 20%. There is paradoxical septal motion consistent with a left bundle branch block. Diastolic function is indeterminate on the basis of available data. Right Ventricle Normal right ventricular cavity size. There is moderately decreased right ventricular systolic function. Atria The left atrium is mildly dilated. Interatrial shunt cannot be excluded. The right atrium is likely dilated. Aortic Valve There is mild calcification of the aortic valve. There is no aortic valve regurgitation. Mitral Valve Normal mitral valve structure and function. There is trace mitral valve regurgitation. There is no mitral valve stenosis. Pulmonic Valve The pulmonic valve was not well visualized. Tricuspid Valve Likely normal tricuspid valve structure and function. There is trace tricuspid valve regurgitation. The right ventricular systolic pressure is normal. The right ventricular systolic pressure is 19 mmHg. Normal right atrial pressure. There is no evidence of pulmonary hypertension. Great Vessels All visible segments of the aorta are normal in size. The pulmonary artery was not well visualized. Venous The inferior vena cava is normal in size and collapses greater than 50% with inspiration. Pericardium/Pleural There is no evidence of pericardial effusion. Prior Study Comparison No prior study available for comparison. Measurements 2D Linear Measurements IVSd: 1.33 0.6-0.9/0.6-1.0 cm LVIDd: 4.01 3.9-5.3/4.2-5.9 cm LVIDd Index: 2.11 2.4-3.2/2.2-3.1 cm/m2 LVIDs: 3.87 2.0-3.6 cm LVPWd: 1.14 0.7-1.1 cm LA Diam: 4.30 2.7-3.8/3.0-4.0 cm LAIDs Index: 2.26 1.5-2.3 cm/m2 LV Mass: 215.92 67-162/88-224 g LV Mass Index: 113.64 43-95/49-115 g/m2 LVOT Diam: 1.80 3.0+(-)1.3 cm 2D Systolic Function EF 4C: 17.10 >55% EF 2C: 20.40 >55% EF BiP: 20.50 >55% Mitral Valve MV Pk E: 0.76 MV Decel Time: 185.00 E'Lateral: 9.57 E'Medial: 5.33 E/E' Med: 14.20 E/E' Lat: 7.90 PHT: 54.00 MVA PHT: 4.07 Decel Monroe: 4.09 Aortic Valve AoV Pk Ramos: 1.08 AoV Mn Ramos: 0.76 AoV VTI: 0.15 AoV Pk Grad: 5.00 Aov Mn Grad: 3.00 KOLE Cont.VTI: 1.48 LVOT LVOT Pk Ramos: 0.65 LVOT Mn Ramos: 0.46 LVOT VTI: 0.09 LVOT Pk Grad: 2.00 LVOT Mn Grad: 1.00 LVOT Diam: 1.80 LVOT Area: 2.54 Diastolic Function MV Pk E: 0.76 E'Medial: 5.33 E/E' Med: 14.20 E' Laterial: 9.57 E/E' Lat: 7.90 Right Ventricle TAPSE (mm): 12.20 TVS' Ramos: 7.80 Tricuspid Valve TR Pk Ramos: 2.01 TR Pk Grad: 16.00 RA Press: 3.00 RVSP: 19.00 Great Vessels Aorta Sinus of Valsalva: 3.50 2.0-3.5 cm Ao Asc: 3.00 2.1-3.4 cm Pulmonary Valve PV Pk Ramos: 0.85 Peak PV Grad: 3.00 Updated in Other Vendor System with Status of Final Lyle Islas MD electronically signed on 06/06/2023 3:35:37 PM with status of Final
== END ==
LOC: HO.CARD 14:12
PROVIDERS: Visit Provider Family Medicine
DX: I49.9 Cardiac arrhythmia, unspecified (principal); I50.9 Heart failure, unspecified; R06.02 Shortness of breath; R09.02 Hypoxemia
CPT/HCPCS: 93306

== ENCOUNTER → 2023-06-06 14:14 | Outpatient (BNV) | payer MEDICARE, SELFPAY | PROVIDERS: Visit Provider Internal Medicine Cardiovascular Disease | DX: I51.7 Cardiomegaly (principal) | CPT/HCPCS: 93306 ==

== ENCOUNTER 2023-06-09 09:25 | Outpatient (AMB) | payer MEDICARE, SELFPAY ==
[2023-06-09 09:29] VITALS: BP 120/72; PULSE 110; BMI 24.1
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
== END 2023-06-09 10:13 | disposition home or self-care (01) ==
PROVIDERS: PCP Family Medicine; Visit Provider Internal Medicine Cardiovascular Disease
DX: I50.20 Unspecified systolic (congestive) heart failure (principal); I48.92 Unspecified atrial flutter
CPT/HCPCS: 93010; 99214

== ENCOUNTER 2023-06-09 09:25 | Outpatient (REF) | payer MEDICARE, SELFPAY ==
--- NOTE | ~2023-06-09 | XR_ITS ---
EXAMINATION: XR CHEST CLINICAL INFORMATION: Atrial flutter COMPARISON: 04/28/2023 TECHNIQUE: 2 views of the chest were obtained. FINDINGS: No significant abnormality is noted involving the heart, lungs, mediastinum, bony thorax or soft tissues. XR/XR chest 2V IMPRESSION: Unremarkable examination.
[2023-06-09 11:31] LABS: Hematocrit 50.1 % (42.0-52.0); Hemoglobin 16.7 g/dl (14.0-18.0); Mean Corpuscular HGB Conc 33.3 g/dl (31.0-36.0); Mean Corpuscular Hemoglobin 30.1 pg (27.0-33.0); Mean Corpuscular Volume 90.3 fL (80.0-98.0); Mean Platelet Volume 12.1 fL (9.4-12.4); Platelet Count 178 X10*3/uL (160-400); Red Blood Count 5.55 X10*6/uL (4.60-5.80); White Blood Count 5.8 X10*3/uL (4.8-10.8)
[2023-06-09 12:48] LABS: B Type Natriuretic Peptide 236 pg/mL (<100)
[2023-06-09 12:54] LABS: Alanine Aminotransferase 33 U/L (0-40); Albumin Level 4.6 g/dL (3.5-5.0); Alkaline Phosphatase 73 U/L (39-117); Anion Gap 15 (12-20); Aspartate Amino Transferase 50 U/L (5-37); Bilirubin Direct 0.3 mg/dL (0.0-0.5); Bilirubin Total 0.7 mg/dL (0.0-1.0); Blood Urea Nitrogen 30 mg/dL (9-16); Calcium 10.2 mg/dL (8.4-10.2); Carbon Dioxide 25 mmol/L (22-29); Chloride 106 mmol/L (96-108); Estimated Glomerular Filt Rate 58; Glucose Random 114 mg/dL (60-115); Magnesium 2.5 mg/dL (1.6-2.6); Potassium 4.9 mmol/L (3.3-5.1); Sodium 141 mmol/L (135-145); Total Protein 8.4 g/dL (6.5-8.0)
[2023-06-09 12:59] LABS: TSH reflex Free T4 2.02 uIU/mL (0.32-4.0)
== END 2023-06-09 09:26 | disposition home or self-care (01) ==
LOC: HO.LAB 09:25
PROVIDERS: PCP Family Medicine; Visit Provider Internal Medicine Cardiovascular Disease
DX: I48.92 Unspecified atrial flutter (principal); I50.30 Unspecified diastolic (congestive) heart failure
CPT/HCPCS: 36415; 71046; 80048; 80076; 83735; 83880; 84443; 85027; 93005; 99212

== ENCOUNTER 2023-06-18 06:26 | Day surgery (SDC) | payer MEDICARE, SELFPAY ==
[2023-06-16 10:58] VITALS: BMI 24.1
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
[2023-06-18 07:40] VITALS: BP 135/74; PULSE 64; RESP 16; TEMP 36.4; O2SAT 97
[2023-06-18] MEDS: Lactated Ringers 1,000 ML 50 ML IVCONT (07:48)
--- NOTE | 2023-06-18 08:29 | MHC.SHP ---
Pre-Procedural Eval Section A Date of Service: 06/18/23 The patient is an INPATIENT: No Changes since office visit: Yes Patient answered all questions; No Cold of Flu in the past 2 weeks, No New Medical Problems and No Changes in Medication The History & Physical has been completed within 30 days and I have reviewed it.: Yes Section B Chief Complaint: Unspecified atrial flutter Allergies: Allergies Allergy/AdvReac Type Severity Reaction Status Date / Time latex [LATEX] Allergy Intermediate RASH Verified 06/04/23 16:28 lisinopril Allergy Intermediate shortness Verified 06/04/23 16:28 of breath Seasonal Allergies Allergy Intermediate Runny Nose Verified 06/04/23 16:28 Plan I have reviewed the history and physical and performed a pertinent physical examination on my patient. No changes have occurred unless specified. Time Spent With Patient Time: Total time managing care of this patient today ____ minutes.
--- NOTE | 2023-06-18 09:09 | ECG_ITS ---
Test Reason : post cardioversion Blood Pressure : / mmHG Vent. Rate : 040 BPM Atrial Rate : 040 BPM P-R Int : 304 ms QRS Dur : 162 ms QT Int : 628 ms P-R-T Axes : 068 -63 063 degrees QTc Int : 511 ms Marked sinus bradycardia with 1st degree A-V block Left axis deviation Left bundle branch block Abnormal ECG When compared with ECG of 28-APR-2023 14:58, Sinus bradycardia has replaced atrial flutter T wave amplitude has decreased in Anterior leads T wave inversion no longer evident in Lateral leads Referred By: Lyle Islas Electronically Signed By:LYLE ISLAS MD
[2023-06-18 09:12] VITALS: BP 107/57; PULSE 40; RESP 16; TEMP 36.3; O2SAT 92
[2023-06-18 09:17] VITALS: BP 103/53; PULSE 40; RESP 20; O2SAT 97
[2023-06-18 09:22] VITALS: BP 106/60; PULSE 41; RESP 16; O2SAT 97
[2023-06-18 09:27] VITALS: BP 110/63; PULSE 39; RESP 16; O2SAT 94
[2023-06-18 09:42] VITALS: BP 106/59; PULSE 39; RESP 18; TEMP 36.2; O2SAT 95
--- NOTE | 2023-06-18 10:12 | P.PNCAR_ITS ---
Cardioversion Procedure Note Cardioversion Date of Procedure: Today Ordering Provider: Myself Performing Provider: Myself Indication for Procedure: Persistent atrial fibrillation with severe LV systolic dysfunction with heart failure Pre-Op Diagnosis: Same Post-Op Diagnosis: Sinus bradycardia Performed with Transesophageal Echo: No History: See my office note Consent: Verbal and Written consent was obtained from the patient before starting the procedure and confirming oral anticoagulation use. The patient was made aware of the risk of synchronized cardioversion including benefits and alternatives Procedure: After consent obtained, cardioversion pads were attached in anteroposterior configuration and the patient was sedated by the anesthesia team. Once adequate sedation achieved, patient was delivered 200 joules of biphasic synchronized energy in anteroposterior configuration Complications: None Impression: Successful conversion to sinus rhythm but sinus bradycardia in the 40s with h eart rate improving to 50 with ambulation. No symptoms of lightheadedness with normal blood pressure Recommendations: 1. 12 lead EKG 2. Discontinue metoprolol and reduce amiodarone to 200 mg daily 3. Continue full oral anticoagulation 4. Office visit in 2 days for EKG
== END 2023-06-18 10:16 | disposition home or self-care (01) ==
PROVIDERS: PCP Family Medicine; Visit Provider Internal Medicine Cardiovascular Disease
PROC: 5A2204Z Restoration of Cardiac Rhythm, Single (ICD-10-PCS; principal; 2023-06-18 08:30)
DX: I48.19 Other persistent atrial fibrillation (principal); I48.92 Unspecified atrial flutter; Z79.01 Long term (current) use of anticoagulants; I11.0 Hypertensive heart disease with heart failure; I50.20 Unspecified systolic (congestive) heart failure; R53.83 Other fatigue; Z79.899 Other long term (current) drug therapy; Z88.8 Allergy status to other drugs, medicaments and biological substances; Z91.040 Latex allergy status; Z87.891 Personal history of nicotine dependence
CPT/HCPCS: 92960; 93005

== ENCOUNTER → 2023-06-18 06:26 | Outpatient (BNV) | payer MEDICARE, SELFPAY | PROVIDERS: PCP Family Medicine; Visit Provider Internal Medicine Cardiovascular Disease | DX: I44.0 Atrioventricular block, first degree (principal); I48.19 Other persistent atrial fibrillation; R00.1 Bradycardia, unspecified | CPT/HCPCS: 92960; 93010 ==

== ENCOUNTER → 2023-06-20 09:33 | Outpatient (BNVA) | payer MEDICARE, SELFPAY | PROVIDERS: PCP Family Medicine; Visit Provider Internal Medicine Cardiovascular Disease ==

== ENCOUNTER 2023-06-24 09:22 | Outpatient (AMB) | payer MEDICARE, SELFPAY ==
[2023-06-24 09:25] VITALS: BP 120/78; PULSE 59; BMI 24.4
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
== END 2023-06-24 09:49 | disposition home or self-care (01) ==
PROVIDERS: PCP Family Medicine; Visit Provider Internal Medicine Cardiovascular Disease
DX: I48.92 Unspecified atrial flutter (principal); I50.20 Unspecified systolic (congestive) heart failure
CPT/HCPCS: 93010; 99214

== ENCOUNTER → 2023-06-24 09:22 | Outpatient (BNVA) | payer MEDICARE, SELFPAY | PROVIDERS: PCP Family Medicine; Visit Provider Internal Medicine Cardiovascular Disease | DX: I48.92 Unspecified atrial flutter (principal); I50.20 Unspecified systolic (congestive) heart failure | CPT/HCPCS: 93005; 99212 ==

== ENCOUNTER → 2023-07-15 09:52 | Outpatient (REF) | payer MEDICARE, SELFPAY ==
--- NOTE | ~2023-07-15 | NM_ITS ---
Myocardial perfusion study Indication: Heart failure with reduced ejection fraction to evaluate for myocardial ischemia Technique: The patient was brought in for a Lexiscan perfusion study on 07/15/2023. Patient performed low-level exercise and was injected 0.4 mg of Lexiscan intravenously. Within a minute of injection, 25 mCi of sestamibi was given intravenously. Images were obtained using the SPECT gamma camera interlaced with the gating device. Images were obtained in supine position. Resting perfusion study was performed on 07/16/2023. Patient was administered 25 mCi of sestamibi intravenously at rest. Images were then obtained in supine position. Images obtained with and without CT attenuation. Total DLP 74 mGy-cm. Images were processed with the software and compared side to side in short axis, horizontal long axis and vertical long axis views. Findings: The stress perfusion study showed attenuated images show mildly reduced uptake in the inferior inferoseptal wall of the LV myocardium. Remainder of the LV myocardium is normally perfused. Attenuation corrected images show mildly reduced uptake in the apex and thinning of the anterior wall of the LV myocardium.. The gated study shows reduced LV systolic function with calculated LVEF of 38%. LV cavity is mildly dilated size. The gated study shows diffusely reduced wall thickening and contraction of segments. Resting study shows no significant change in perfusion pattern compared to a resting perfusion study. Gating at rest reveals diffusely reduced wall motion with ejection fraction at 18%. The findings are consistent with no clear reversible defect suggestive of ischemia. NM/NM jonathan perf SPECT rest & str Impression: 1. Myocardial perfusion imaging study shows no evidence of ischemia 2. Gated LVEF is 38% with stress and 18% with rest 3. Transient ischemic dilatation not present but LV cavity is dilated EKG is nondiagnostic for ischemia
--- NOTE | 2023-07-15 11:48 | CA_ITS ---
Acquisition Time: 2023-07-15 10:15:56 Total Exercise Time: 00:02:00 Test Indications: AFLUTTER, LBBB Medications: SEE H Protocol: LEXISCAN Max HR: 113 BPM 79% of Pred: 143 BPM Max BP: 128/062 mmHG Max Work Load: 1.0 METS Pharmacological stress test with Lexiscan injection while sitting, without anginal symptoms, without arryhtmias, with normotensive response to injection, with nondiagnositic EKGs. Nuclear images pending. Aminophylline 75mg IVP given to reverse Lexiscan. Test reviewed with Dr. Marc. Referred By: Lyle Islas Overread By: Nadine Madrigal
--- NOTE | 2023-07-16 12:30 | HM_ITS ---
Conclusion: 1. Patient was monitored for total period of 3 days 2. Baseline rhythm is atrial flutter with average heart of 68 beats per minute with good rate control 3. No significant PVCs noted 4. No pauses noted 5. No patient reported symptoms MTDD
== END ==
LOC: HO.CARD 09:52
PROVIDERS: PCP Family Medicine; Visit Provider Internal Medicine Cardiovascular Disease
DX: I50.20 Unspecified systolic (congestive) heart failure (principal); I48.92 Unspecified atrial flutter
CPT/HCPCS: 78452; 93017; 93242; A9500; J0280; J2785

== ENCOUNTER → 2023-07-15 11:48 | Outpatient (BNV) | payer MEDICARE, SELFPAY | PROVIDERS: PCP Family Medicine; Visit Provider Nurse Practitioner | DX: I50.20 Unspecified systolic (congestive) heart failure (principal) | CPT/HCPCS: 78452; 93016; 93018 ==

== ENCOUNTER → 2023-07-16 12:30 | Outpatient (BNV) | payer MEDICARE, SELFPAY | PROVIDERS: PCP Family Medicine; Visit Provider Internal Medicine Cardiovascular Disease | DX: I48.92 Unspecified atrial flutter (principal) | CPT/HCPCS: 93244 ==

== ENCOUNTER 2023-08-04 15:26 | Outpatient (AMB) | payer MEDICARE, SELFPAY ==
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
[2023-08-04 15:31] VITALS: BP 120/70; PULSE 74; BMI 23.8
== END 2023-08-04 15:59 | disposition home or self-care (01) ==
PROVIDERS: PCP Family Medicine; Referring Provider Family Medicine; Visit Provider Internal Medicine Cardiovascular Disease
DX: I50.20 Unspecified systolic (congestive) heart failure (principal); I48.92 Unspecified atrial flutter
CPT/HCPCS: 93010; 99214

== ENCOUNTER → 2023-08-04 15:26 | Outpatient (BNVA) | payer MEDICARE, SELFPAY | PROVIDERS: PCP Family Medicine; Referring Provider Family Medicine; Visit Provider Internal Medicine Cardiovascular Disease | DX: I50.20 Unspecified systolic (congestive) heart failure (principal); I48.92 Unspecified atrial flutter | CPT/HCPCS: 93005; 99212 ==

== ENCOUNTER 2023-08-06 08:25 | Outpatient (AMB) | payer MEDICARE, SELFPAY ==
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
[2023-08-06 08:40] VITALS: BP 92/40; PULSE 74; RESP 15; TEMP 37.1; O2SAT 99
== END 2023-08-06 09:38 | disposition home or self-care (01) ==
PROVIDERS: PCP Family Medicine; Visit Provider Family Medicine
DX: I50.20 Unspecified systolic (congestive) heart failure (principal); I48.92 Unspecified atrial flutter; R06.02 Shortness of breath; M25.511 Pain in right shoulder; M79.601 Pain in right arm
CPT/HCPCS: 99214

== ENCOUNTER 2023-08-06 09:57 | Outpatient (REF) | payer MEDICARE, SELFPAY ==
[2023-08-06 12:24] LABS: B Type Natriuretic Peptide 200 pg/mL (<100)
[2023-08-06 12:37] LABS: Anion Gap 10 (12-20); Blood Urea Nitrogen 30 mg/dL (9-16); Calcium 9.6 mg/dL (8.4-10.2); Carbon Dioxide 28 mmol/L (22-29); Chloride 107 mmol/L (96-108); Estimated Glomerular Filt Rate 55; Glucose Random 88 mg/dL (60-115); Potassium 4.7 mmol/L (3.3-5.1); Sodium 140 mmol/L (135-145)
== END 2023-08-06 09:58 | disposition home or self-care (01) ==
LOC: HO.WFDLDS 09:57
PROVIDERS: Visit Provider Family Medicine
DX: Z00.00 Encounter for general adult medical examination without abnormal findings (principal); I50.9 Heart failure, unspecified
CPT/HCPCS: 36415; 80048; 83880

== ENCOUNTER 2023-08-14 11:16 | Outpatient (REF) | payer MEDICARE, SELFPAY ==
[2023-08-14 15:04] LABS: Anion Gap 11 (12-20); Blood Urea Nitrogen 21 mg/dL (9-16); Calcium 9.7 mg/dL (8.4-10.2); Carbon Dioxide 26 mmol/L (22-29); Chloride 108 mmol/L (96-108); Estimated Glomerular Filt Rate > 60; Glucose Random 102 mg/dL (60-115); Potassium 4.3 mmol/L (3.3-5.1); Sodium 141 mmol/L (135-145)
[2023-08-14 15:07] LABS: Digoxin 1.5 ng/mL (0.8-2.0)
[2023-08-14 15:11] LABS: B Type Natriuretic Peptide 171 pg/mL (<100)
== END 2023-08-14 11:17 | disposition home or self-care (01) ==
LOC: HO.WFDLDS 11:16
PROVIDERS: Visit Provider Internal Medicine Cardiovascular Disease
DX: I50.9 Heart failure, unspecified (principal); I48.92 Unspecified atrial flutter
CPT/HCPCS: 36415; 80048; 80162; 83880

== ENCOUNTER 2023-08-26 09:00 | Outpatient (RCR) | payer MEDICARE, SELFPAY ==
[2023-08-12 09:04] VITALS: BP 104/60; PULSE 53; O2SAT 98
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
== END 2023-11-11 11:38 | disposition home or self-care (01) ==
LOC: HO.PTWFD 09:00
PROVIDERS: PCP Family Medicine; Visit Provider Family Medicine
DX: M25.511 Pain in right shoulder (principal); M79.601 Pain in right arm
CPT/HCPCS: 97110; 97140; 97162; 97535

== ENCOUNTER → 2023-09-04 12:45 | Outpatient (REF) | payer MEDICARE, SELFPAY ==
--- NOTE | 2023-09-04 12:47 | CA_ITS ---
Transthoracic Echocardiogram Patient (Last, First, Middle): Leandro Fernandez, Gender: Male Date of : 1945 Age: 78 Procedure Date: 09/04/2023 Procedure Type: Transthoracic Echocardiogram Location: OP Height: 175.26 cm Weight: 72.58 kg BSA: 1.88 m2 Heart Rate: bpm BP: 118 / 64 mmHg Core Sucker: TO Referring MD: Lyle Islas MD Symptoms: I42.9 - Cardiomyopathy, unspecified Study Quality: Adequate with contrast Conclusions: - Normal left ventricular cavity size. The left ventricular systolic function is mild to moderately decreased. The visually estimated ejection fraction is between 35-40%. - The apex segment is hypokinetic. Findings Procedure Information Contrast agent, definity, is being given per protocol without apparent complications. Left Ventricle Normal left ventricular cavity size. The left ventricular systolic function is mild to moderately decreased. The visually estimated ejection fraction is between 35-40%. There is evidence of regional wall motion abnormalities. Wall Motion Rest Echo Findings The apex segment is hypokinetic. Venous The inferior vena cava is normal in size and collapses greater than 50% with inspiration. Pericardium/Pleural There is no evidence of pericardial effusion. Prior Study Comparison Changes noted compared to prior study dated: 06/06/2023. EF improved to 35 to 40%. [place] appears hypokinetic, Measurements 2D Linear Measurements IVSd: 1.13 0.6-0.9/0.6-1.0 cm LVIDd: 5.11 3.9-5.3/4.2-5.9 cm LVIDd Index: 2.72 2.4-3.2/2.2-3.1 cm/m2 LVIDs: 3.59 2.0-3.6 cm LVPWd: 0.79 0.7-1.1 cm LV Mass: 222.86 67-162/88-224 g LV Mass Index: 118.54 43-95/49-115 g/m2 LVOT Diam: 2.00 3.0+(-)1.3 cm 2D Systolic Function EF 4C: 35.70 >55% EF 2C: 51.90 >55% EF BiP: 44.10 >55% LVOT LVOT Pk Ramos: 1.19 LVOT Mn Ramos: 0.78 LVOT VTI: 0.25 LVOT Pk Grad: 6.00 LVOT Mn Grad: 3.00 LVOT Diam: 2.00 LVOT Area: 3.14 Tricuspid Valve RA Press: 3.00 Updated in Other Vendor System with Status of Final Joseph Delgado MD electronically signed on 09/07/2023 5:57:06 PM with status of Final
--- NOTE | 2023-09-04 12:47 | HM_ITS ---
* Total monitoring time 3 days. * Underlying rhythm is atrial flutter. Average ventricular rate 60/Min. Range 37 to 110/min. * About 72% of the time, rate less than 60/Min. * Pauses noted during sleep hours. Longest 3.3 seconds. No significant daytime pauses. * No patient markers or diary events. MTDD
== END ==
LOC: HO.CARD 12:45
PROVIDERS: PCP Family Medicine; Visit Provider Internal Medicine Cardiovascular Disease
DX: I48.92 Unspecified atrial flutter (principal); I42.9 Cardiomyopathy, unspecified; I50.20 Unspecified systolic (congestive) heart failure
CPT/HCPCS: 93225; 93308; Q9957

== ENCOUNTER → 2023-09-04 12:47 | Outpatient (BNV) | payer MEDICARE, SELFPAY | PROVIDERS: PCP Family Medicine; Visit Provider Internal Medicine Cardiovascular Disease | DX: I48.92 Unspecified atrial flutter (principal) | CPT/HCPCS: 93227; 93308 ==

== ENCOUNTER 2023-09-24 10:49 | Outpatient (AMB) | payer MEDICARE, SELFPAY ==
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
[2023-09-24 10:56] VITALS: BP 110/72; PULSE 54; BMI 24.1
== END 2023-09-24 11:21 | disposition home or self-care (01) ==
PROVIDERS: PCP Family Medicine; Visit Provider Internal Medicine Cardiovascular Disease
DX: I48.92 Unspecified atrial flutter (principal); I50.20 Unspecified systolic (congestive) heart failure
CPT/HCPCS: 93010; 99214

== ENCOUNTER → 2023-09-24 10:49 | Outpatient (BNVA) | payer MEDICARE, SELFPAY | PROVIDERS: PCP Family Medicine; Visit Provider Internal Medicine Cardiovascular Disease | DX: I48.92 Unspecified atrial flutter (principal); I50.20 Unspecified systolic (congestive) heart failure; Z79.01 Long term (current) use of anticoagulants | CPT/HCPCS: 93005; 99212 ==

== ENCOUNTER 2023-09-25 09:13 | Outpatient (REF) | payer MEDICARE, SELFPAY ==
[2023-09-25 12:09] LABS: Anion Gap 8 (12-20); Blood Urea Nitrogen 18 mg/dL (9-16); Calcium 9.6 mg/dL (8.4-10.2); Carbon Dioxide 30 mmol/L (22-29); Chloride 107 mmol/L (96-108); Estimated Glomerular Filt Rate > 60; Glucose Random 123 mg/dL (60-115); Potassium 4.1 mmol/L (3.3-5.1); Sodium 141 mmol/L (135-145)
[2023-09-25 12:23] LABS: Digoxin 0.6 ng/mL (0.8-2.0)
== END 2023-09-25 09:14 | disposition home or self-care (01) ==
LOC: HO.WFDLDS 09:13
PROVIDERS: Visit Provider Internal Medicine Cardiovascular Disease
DX: I48.92 Unspecified atrial flutter (principal); Z79.899 Other long term (current) drug therapy
CPT/HCPCS: 36415; 80048; 80162

== ENCOUNTER 2023-10-23 09:27 | Outpatient (AMB) | payer MEDICARE, SELFPAY ==
[2023-10-23 09:32] VITALS: BP 118/70; PULSE 56; O2SAT 96; BMI 24.7
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
== END 2023-10-23 10:12 | disposition home or self-care (01) ==
PROVIDERS: PCP Family Medicine; Visit Provider Family Medicine
DX: I48.92 Unspecified atrial flutter (principal); R06.02 Shortness of breath; I50.20 Unspecified systolic (congestive) heart failure; R22.30 Localized swelling, mass and lump, unspecified upper limb; M79.601 Pain in right arm; R73.03 Prediabetes; Z13.9 Encounter for screening, unspecified
CPT/HCPCS: 83036; 99214

== ENCOUNTER 2023-10-23 10:19 | Outpatient (REF) | payer MEDICARE, SELFPAY ==
[2023-10-23 12:40] LABS: Digoxin 1.1 ng/mL (0.8-2.0)
== END 2023-10-23 10:20 | disposition home or self-care (01) ==
LOC: HO.WFDLDS 10:19
PROVIDERS: Visit Provider Family Medicine
DX: I50.20 Unspecified systolic (congestive) heart failure (principal); Z79.899 Other long term (current) drug therapy
CPT/HCPCS: 36415; 80162

== ENCOUNTER 2023-10-23 10:47 | Outpatient (REF) | payer MEDICARE, SELFPAY ==
--- NOTE | ~2023-10-23 | XR_ITS ---
STUDY: Right shoulder and right humerus INDICATION: Atraumatic right shoulder and humerus pain. COMPARISON: None FINDINGS: Bones are diffusely demineralized. Acromioclavicular and glenohumeral degenerative changes are noted. Humeral head spurring is seen. Small calcifications identified superolateral aspect of the right humeral head. Humerus and right elbow are intact. Visualized ribs and right lung are unremarkable. XR/XR shoulder RT min 2V IMPRESSION: No acute bony pathology right shoulder and humerus. 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
--- NOTE | ~2023-10-23 | XR_ITS ---
STUDY: Right shoulder and right humerus INDICATION: Atraumatic right shoulder and humerus pain. COMPARISON: None FINDINGS: Bones are diffusely demineralized. Acromioclavicular and glenohumeral degenerative changes are noted. Humeral head spurring is seen. Small calcifications identified superolateral aspect of the right humeral head. Humerus and right elbow are intact. Visualized ribs and right lung are unremarkable. XR/XR humerus RT IMPRESSION: No acute bony pathology right shoulder and humerus. 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
== END 2023-10-23 10:48 | disposition home or self-care (01) ==
LOC: HO.XRAY 10:47
PROVIDERS: PCP Family Medicine; Visit Provider Family Medicine
DX: M25.511 Pain in right shoulder (principal); M79.601 Pain in right arm
CPT/HCPCS: 73030; 73060

== ENCOUNTER 2023-11-28 14:43 | Outpatient (AMB) | payer MEDICARE, SELFPAY ==
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
[2023-11-28 15:00] VITALS: BP 120/62; PULSE 78; O2SAT 97; BMI 24.4
== END 2023-11-28 16:16 | disposition home or self-care (01) ==
PROVIDERS: PCP Family Medicine; Visit Provider Family Medicine
DX: M65.20 Calcific tendinitis, unspecified site (principal); I49.9 Cardiac arrhythmia, unspecified
CPT/HCPCS: 99213

== ENCOUNTER 2023-12-09 12:41 | Outpatient (AMB) | payer MEDICARE, SELFPAY ==
[2023-12-09 12:46] VITALS: BMI 24.4
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
== END 2023-12-09 13:25 | disposition home or self-care (01) ==
PROVIDERS: PCP Family Medicine; Visit Provider Physician Assistant
DX: M19.011 Primary osteoarthritis, right shoulder (principal); R22.31 Localized swelling, mass and lump, right upper limb
CPT/HCPCS: 20610; 99214

== ENCOUNTER 2023-12-09 12:41 | Outpatient (REF) | payer MEDICARE, SELFPAY | END 2023-12-09 12:42 | disposition home or self-care (01) | LOC: HO.HOSX 12:41 | PROVIDERS: PCP Family Medicine; Visit Provider Physician Assistant | DX: M19.011 Primary osteoarthritis, right shoulder (principal); R22.31 Localized swelling, mass and lump, right upper limb | CPT/HCPCS: 20610; 99212; J1040 ==

== ENCOUNTER 2024-01-07 09:25 | Outpatient (REF) | payer MEDICARE, SELFPAY ==
--- NOTE | ~2024-01-07 | MR_ITS ---
EXAMINATION: MR HUMERUS WITHOUT AND WITH CONTRAST, RIGHT CLINICAL INFORMATION: Right arm/shoulder pain with palpable lump. Cortisone injection 2 weeks ago. COMPARISON: Right shoulder and humerus radiographs dated 10/23/2023. TECHNIQUE: Multisequence MR imaging of the right humerus was obtained before and after the IV administration of 7.5 mL Gadavist contrast on a high-field strength scanner. FINDINGS: BONE: Partially visualized articular cartilage loss and subchondral cystic change, marrow edema, and marginal osteophytes at the right glenohumeral joint. Findings appear similar when compared to the prior radiographs. No acute fracture or dislocation. No concerning lytic or blastic osseous lesion. No postcontrast marrow enhancement. MUSCLES/TENDONS: There appears to be supraspinatus and infraspinatus tendinosis. Probable insertional bursal surface tear of the distal infraspinatus tendon measuring up to 0.8 cm. Evaluation significantly limited on large [id number] imaging. The remaining visualized muscles and tendons are intact without edema or evidence of acute injury. No postcontrast enhancement or evidence of myositis. SOFT TISSUES: Within the lateral soft tissues at the level of the mid humerus and in the region of the overlying skin marker, there is an encapsulated, predominantly fat lesion measuring approximately 4.1 x 1.6 x 3.8 cm (AP by ML by CC). There are thin septations at the periphery. No soft tissue component or postcontrast enhancement. No associated inflammatory change. Findings are consistent with a low-grade lipomatous lesion such as a lipoma. No additional soft tissue mass or fluid collection. No enhancing soft tissue lesion. No axillary lymphadenopathy. MR/MR humerus RT wo/w con IMPRESSION: 1. Subcutaneous, predominantly fat mass within the lateral soft tissues at the level of the mid humerus measuring up to 4.1 cm with thin septations at the periphery. No soft tissue component or postcontrast enhancement. Findings are consistent with a low-grade lipomatous lesion such as a lipoma. 2. Partially visualized right glenohumeral osteoarthritis, similar when compared to the prior radiographs. 3. Supraspinatus and infraspinatus tendinosis with a probable insertional bursal surface tear of the distal infraspinatus tendon. Evaluation significantly limited on large [id number] imaging.
[2024-01-07] MEDS: gadobutroL 7.5 ML VIAL IVPUSH (10:45)
== END 2024-01-07 09:26 | disposition home or self-care (01) ==
LOC: HO.MRI 09:25
PROVIDERS: PCP Family Medicine; Visit Provider Physician Assistant
DX: R22.30 Localized swelling, mass and lump, unspecified upper limb (principal); M79.601 Pain in right arm
CPT/HCPCS: 73220; A9585

== ENCOUNTER 2024-01-27 09:07 | Outpatient (AMB) | payer MEDICARE, SELFPAY ==
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
[2024-01-27 09:18] VITALS: BP 143/67; PULSE 58; BMI 24.4
== END 2024-01-27 09:28 | disposition home or self-care (01) ==
PROVIDERS: PCP Family Medicine; Referring Provider Family Medicine; Visit Provider Surgery
DX: D17.20 Benign lipomatous neoplasm of skin and subcutaneous tissue of unspecified limb (principal); R22.31 Localized swelling, mass and lump, right upper limb
CPT/HCPCS: 99204

== ENCOUNTER → 2024-01-27 09:07 | Outpatient (BNVA) | payer MEDICARE, SELFPAY | PROVIDERS: PCP Family Medicine; Referring Provider Family Medicine; Visit Provider Surgery | DX: D17.20 Benign lipomatous neoplasm of skin and subcutaneous tissue of unspecified limb (principal); R22.31 Localized swelling, mass and lump, right upper limb | CPT/HCPCS: 99202 ==

== ENCOUNTER 2024-01-30 09:24 | Outpatient (AMB) | payer MEDICARE, SELFPAY ==
[2024-01-30 09:31] VITALS: BP 120/70; PULSE 70; O2SAT 97; BMI 24.5
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
== END 2024-01-30 10:20 | disposition home or self-care (01) ==
PROVIDERS: PCP Family Medicine; Visit Provider Family Medicine
DX: I11.0 Hypertensive heart disease with heart failure (principal); I50.9 Heart failure, unspecified; M19.011 Primary osteoarthritis, right shoulder; R22.31 Localized swelling, mass and lump, right upper limb
CPT/HCPCS: 99214

== ENCOUNTER 2024-02-11 08:36 | Outpatient (AMB) | payer MEDICARE, SELFPAY ==
[2024-02-11 08:41] VITALS: BP 118/68; PULSE 58; BMI 24.4
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
== END 2024-02-11 09:09 | disposition home or self-care (01) ==
PROVIDERS: PCP Family Medicine; Visit Provider Internal Medicine Cardiovascular Disease
DX: I50.20 Unspecified systolic (congestive) heart failure (principal); I48.92 Unspecified atrial flutter; Z01.810 Encounter for preprocedural cardiovascular examination
CPT/HCPCS: 93010; 99214

== ENCOUNTER → 2024-02-11 08:36 | Outpatient (BNVA) | payer MEDICARE, SELFPAY | PROVIDERS: PCP Family Medicine; Visit Provider Internal Medicine Cardiovascular Disease | DX: Z01.810 Encounter for preprocedural cardiovascular examination (principal); I50.20 Unspecified systolic (congestive) heart failure; I48.92 Unspecified atrial flutter | CPT/HCPCS: 93005; 99212 ==

== ENCOUNTER 2024-02-18 08:53 | Outpatient (REF) | payer MEDICARE, SELFPAY ==
[2024-02-18 11:54] LABS: Anion Gap 11 (12-20); Blood Urea Nitrogen 22 mg/dL (9-16); Calcium 9.5 mg/dL (8.4-10.2); Carbon Dioxide 28 mmol/L (22-29); Chloride 106 mmol/L (96-108); Estimated Glomerular Filt Rate > 60; Glucose Random 90 mg/dL (60-115); Potassium 3.9 mmol/L (3.3-5.1); Sodium 141 mmol/L (135-145)
[2024-02-18 12:21] LABS: Digoxin 0.7 ng/mL (0.8-2.0)
== END 2024-02-18 08:54 | disposition home or self-care (01) ==
LOC: HO.WFDLDS 08:53
PROVIDERS: Visit Provider Internal Medicine Cardiovascular Disease
DX: I48.20 Chronic atrial fibrillation, unspecified (principal); I48.92 Unspecified atrial flutter; Z79.899 Other long term (current) drug therapy
CPT/HCPCS: 36415; 80048; 80162

== ENCOUNTER 2024-03-05 06:49 | Day surgery (SDC) | payer MEDICARE, SELFPAY ==
[2024-03-02 13:34] VITALS: BMI 24.4
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
--- NOTE | 2024-03-04 11:46 | MHC.SHP ---
Pre-Procedural Eval Section A - 24 Hr Update-Section A only Date of Service: 03/04/24 The patient is an INPATIENT: No Changes since office visit: No Cold of Flu in the past 2 weeks, No New Medical Problems, No Changes in Medication and No Patient answered all questions Section B - Complete if H&P > 30 days Chief Complaint: Benign lipomatous neoplasm of skin and subcutaneou Allergies: Allergies Allergy/AdvReac Type Severity Reaction Status Date / Time latex [LATEX] Allergy Intermediate RASH Verified 01/30/24 09:32 lisinopril Allergy Intermediate shortness Verified 01/30/24 09:32 of breath Seasonal Allergies Allergy Intermediate Runny Nose Verified 01/30/24 09:32 Plan I have reviewed the history and physical and performed a pertinent physical examination on my patient. No changes have occurred unless specified. Time Spent With Patient Time: Total time managing care of this patient today ____ minutes.
[2024-03-05 06:58] VITALS: BMI 24.7
[2024-03-05 07:04] VITALS: BP 138/76; PULSE 48; RESP 16; TEMP 36.2; O2SAT 96
[2024-03-05] MEDS: Lactated Ringers 500 ML 20 ML IVCONT (07:21)
--- NOTE | 2024-03-05 09:23 | W.PM.OPN ---
Operative Note Operative Note Date of Service: 03/05/24 Narrative: Preoperative diagnosis: [] Right mid biceps intramuscular lipoma Postop diagnosis: [] The same Procedure [] wide local excision intramuscular lipoma right biceps Surgeon: [] Krystian Labor Relations Supervisor: [] Flor Type of Anesthesia: [] MAC Indication for surgery: [] apProximally 5 x 3 cm intramuscular right biceps lipoma. Findings: [] Patient brought to the operating room, placed on operative table in supine position, after appropriate positioning, and sedation, patient's right biceps area was prepped and draped in usual sterile fashion. Using a longitudinal incision over the mass in question, this carried down through skin, subcutaneous tissue, down to biceps muscle were as fibers were split and a large approximately 5 x 3 cm lipoma was uneventfully enucleated. Wound was irrigated, secured hemostasis. It was closed in the following manner; subcutaneous tissues reapproximated using interrupted 3-0 Vicryl sutures. Skin was closed using interrupted inverted dermal 3-0 Vicryl sutures followed by Steri-Strips and sterile dressings. Wound was infiltrated at the beginning and at the end of the case with 1% lidocaine/0.5% bupivacaine. Sponge, needle, and instrument counts were reported correct. Patient tolerated procedure well and emerged from anesthesia and stable condition. EBL minimal
[2024-03-05 09:30] VITALS: BP 146/68; PULSE 50; RESP 18; TEMP 36.1; O2SAT 95
[2024-03-05 09:46] VITALS: BP 152/71; PULSE 52; RESP 16; O2SAT 91
[2024-03-05 10:00] VITALS: BP 164/87; PULSE 53; RESP 16; O2SAT 97
[2024-03-05 10:18] VITALS: BP 160/73; PULSE 53; RESP 16; TEMP 36.2; O2SAT 97
== END 2024-03-05 11:10 | disposition home or self-care (01) ==
PROVIDERS: Pathology Cytopathology; PCP Family Medicine; Visit Provider Surgery
PROC: (CPT 24076; principal; 2024-03-05 08:40)
DX: D17.21 Benign lipomatous neoplasm of skin and subcutaneous tissue of right arm (principal); M19.011 Primary osteoarthritis, right shoulder; I11.0 Hypertensive heart disease with heart failure; I50.20 Unspecified systolic (congestive) heart failure; E78.00 Pure hypercholesterolemia, unspecified; I48.92 Unspecified atrial flutter; Z79.01 Long term (current) use of anticoagulants; Z79.899 Other long term (current) drug therapy; Z91.040 Latex allergy status; Z88.8 Allergy status to other drugs, medicaments and biological substances; Z96.641 Presence of right artificial hip joint; Z96.652 Presence of left artificial knee joint; Z87.891 Personal history of nicotine dependence
CPT/HCPCS: 24076; 36415; 88304; 88377; J0690; J1170; J2250; J2704; J2795; J3010

== ENCOUNTER → 2024-03-05 06:49 | Outpatient (BNV) | payer MEDICARE, SELFPAY | PROVIDERS: PCP Family Medicine; Visit Provider Surgery | DX: D17.21 Benign lipomatous neoplasm of skin and subcutaneous tissue of right arm (principal) | CPT/HCPCS: 24076 ==

== ENCOUNTER 2024-03-15 11:08 | Outpatient (AMB) | payer MEDICARE, SELFPAY ==
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
== END 2024-03-15 11:16 | disposition home or self-care (01) ==
LOC: HO.HGS 11:08
PROVIDERS: PCP Family Medicine; Visit Provider Surgery
DX: D17.20 Benign lipomatous neoplasm of skin and subcutaneous tissue of unspecified limb (principal)
CPT/HCPCS: 99024

== ENCOUNTER → 2024-03-15 11:08 | Outpatient (BNVA) | payer MEDICARE, SELFPAY | PROVIDERS: PCP Family Medicine; Visit Provider Surgery | DX: D17.20 Benign lipomatous neoplasm of skin and subcutaneous tissue of unspecified limb (principal) | CPT/HCPCS: 99212 ==

== ENCOUNTER 2024-04-22 11:29 | Outpatient (AMB) | payer MEDICARE, SELFPAY ==
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
[2024-04-22 11:32] VITALS: BP 122/70; PULSE 62; RESP 14; TEMP 36.6; O2SAT 95; BMI 24.3
== END 2024-04-22 12:04 | disposition home or self-care (01) ==
LOC: HO.HMGFM 11:29
PROVIDERS: PCP Family Medicine; Visit Provider Nurse Practitioner Family
DX: H26.9 Unspecified cataract (principal); Z01.818 Encounter for other preprocedural examination
CPT/HCPCS: 99214

== ENCOUNTER 2024-05-18 08:12 | Outpatient (REF) | payer MEDICARE, SELFPAY ==
[2024-05-18 11:29] LABS: MANUAL DIFF FLAG NO
[2024-05-18 11:42] LABS: Appearance Urine Clear; Color Urine Yellow; Glucose Urine UA Negative (Negative); Leukocyte Esterase Urine Negative (Negative); Nitrite Urine Negative (Negative); Urine Blood Negative (Negative); Urine Ketones Negative (Negative); Urine Protein Negative (Neg-Trace)
[2024-05-18 11:48] LABS: Basophils Percent Auto 0.6 % (0-2); Eosinophils Absolute Auto 0.1 X10*3/uL (0.0-0.4); Eosinophils Percent Auto 2.1 % (0-4); Hematocrit 42.8 % (42.0-52.0); Hemoglobin 15.1 g/dl (14.0-18.0); Imm Gran Abs Auto 0.01 X10*3/uL (0.00-0.03); Imm Gran Pct Auto 0.2 % (0.0-0.4); Lymphocytes Absolute Auto 1.9 X10*3/uL (1.2-4.9); Lymphocytes Percent Auto 39.6 % (20-40); Mean Corpuscular HGB Conc 35.3 g/dl (31.0-36.0); Mean Corpuscular Hemoglobin 31.9 pg (27.0-33.0); Mean Corpuscular Volume 90.5 fL (80.0-98.0); Mean Platelet Volume 11.9 fL (9.4-12.4); Monocytes Absolute Auto 0.6 X10*3/uL (0.1-1.2); Monocytes Percent Auto 11.8 % (2-11); Neutrophils Absolute Auto 2.1 x10*3/uL (2.0-8.3); Neutrophils Percent Auto 45.7 % (45-73); Platelet Count 157 X10*3/uL (160-400); Red Blood Count 4.73 X10*6/uL (4.60-5.80); Red Cell Distribution Width 11.9 % (11.0-16.0); White Blood Count 4.7 X10*3/uL (4.8-10.8)
[2024-05-18 12:09] LABS: Estimated Average Glucose 126 mg/dL
[2024-05-18 12:21] LABS: Alanine Aminotransferase 24 U/L (0-40); Albumin Level 4.3 g/dL (3.5-5.0); Alkaline Phosphatase 64 U/L (39-117); Anion Gap 12 (12-20); Aspartate Amino Transferase 41 U/L (5-37); Bilirubin Total 0.6 mg/dL (0.0-1.0); Blood Urea Nitrogen 17 mg/dL (9-16); Calcium 9.7 mg/dL (8.4-10.2); Carbon Dioxide 27 mmol/L (22-29); Chloride 106 mmol/L (96-108); Estimated Glomerular Filt Rate > 60; Glucose Fasting 108 mg/dL (60-99); Potassium 4.4 mmol/L (3.3-5.1); Sodium 141 mmol/L (135-145); Total Protein 7.9 g/dL (6.5-8.0)
[2024-05-18 12:26] LABS: Prostate Specific Antigen Scr 1.48 ng/mL (<0.05-4.0)
[2024-05-18 12:29] LABS: Microalbumin Urine < 5.0 mg/L
== END 2024-05-18 08:13 | disposition home or self-care (01) ==
LOC: HO.WFDLDS 08:12
PROVIDERS: Visit Provider Family Medicine
DX: Z00.00 Encounter for general adult medical examination without abnormal findings (principal); I10 Essential (primary) hypertension; Z12.5 Encounter for screening for malignant neoplasm of prostate; R73.01 Impaired fasting glucose
CPT/HCPCS: 36415; 80053; 81003; 82043; 82570; 83036; 84153; 84443; 85025

== ENCOUNTER 2024-05-24 15:56 | Outpatient (AMB) | payer MEDICARE, SELFPAY ==
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
[2024-05-24 16:17] VITALS: BP 124/70; PULSE 56; O2SAT 98; BMI 24.4
== END 2024-05-24 17:09 | disposition home or self-care (01) ==
PROVIDERS: PCP Family Medicine; Visit Provider Family Medicine
DX: Z00.00 Encounter for general adult medical examination without abnormal findings (principal); R73.03 Prediabetes; R35.0 Frequency of micturition; I10 Essential (primary) hypertension; R74.01 Elevation of levels of liver transaminase levels; Z12.5 Encounter for screening for malignant neoplasm of prostate; Z12.11 Encounter for screening for malignant neoplasm of colon
CPT/HCPCS: 99213; 99397

== ENCOUNTER 2024-07-02 08:57 | Outpatient (REF) | payer MEDICARE, SELFPAY ==
[2024-07-02 11:15] LABS: Alanine Aminotransferase 22 U/L (0-40); Albumin Level 4.4 g/dL (3.5-5.0); Alkaline Phosphatase 62 U/L (39-117); Anion Gap 10 (12-20); Aspartate Amino Transferase 37 U/L (5-37); Blood Urea Nitrogen 21 mg/dL (9-16); Calcium 9.9 mg/dL (8.4-10.2); Carbon Dioxide 29 mmol/L (22-29); Chloride 106 mmol/L (96-108); Cholesterol 195 mg/dL (<200); Estimated Glomerular Filt Rate > 60; Glucose Fasting 111 mg/dL (60-99); HDL Cholesterol 40 mg/dL (>40); LDL Cholesterol Calculated 137 mg/dL (<100); Potassium 4.2 mmol/L (3.3-5.1); Sodium 141 mmol/L (135-145); Triglycerides 93 mg/dL (<150)
== END 2024-07-02 08:58 | disposition home or self-care (01) ==
LOC: HO.WFDLDS 08:57
PROVIDERS: Visit Provider Family Medicine
DX: Z00.00 Encounter for general adult medical examination without abnormal findings (principal); R74.01 Elevation of levels of liver transaminase levels; E78.00 Pure hypercholesterolemia, unspecified
CPT/HCPCS: 36415; 80053; 80061

== ENCOUNTER 2024-07-28 08:19 | Outpatient (AMB) | payer MEDICARE, SELFPAY ==
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
== END 2024-07-28 09:11 | disposition home or self-care (01) ==
PROVIDERS: PCP Family Medicine; Visit Provider Urology
DX: R35.1 Nocturia (principal); R35.0 Frequency of micturition; Z13.9 Encounter for screening, unspecified
CPT/HCPCS: 99204

== ENCOUNTER → 2024-07-28 08:19 | Outpatient (BNVA) | payer MEDICARE, SELFPAY | PROVIDERS: PCP Family Medicine; Visit Provider Urology | DX: R35.0 Frequency of micturition (principal); R35.1 Nocturia; R39.12 Poor urinary stream | CPT/HCPCS: 81003; 99202 ==

== ENCOUNTER → 2024-08-04 08:53 | Outpatient (REF) | payer MEDICARE, SELFPAY ==
--- NOTE | 2024-08-04 08:55 | CA_ITS ---
Transthoracic Echocardiogram Patient (Last, First, Middle): Leandro Fernandez, Gender: Male Date of : 1945 Age: 79 Procedure Date: 08/04/2024 Procedure Type: Transthoracic Echocardiogram Location: OP Height: 175.26 cm Weight: 72.58 kg BSA: 1.88 m2 Heart Rate: bpm BP: 120 / 60 mmHg Electronic Prepress System Operator: YESSY Referring MD: Lyle Islas MD Family Day Carer: Lyle Islas MD Symptoms: I50.20 - Unspecified systolic (congestive) heart failure Study Quality: Fair/Contrast ECG Rhythm: Atrial flutter Conclusions: - 1. Moderate LV systolic dysfunction with LVEF of 35-40% 2. At least moderately dilated left atrium 3. Normal cardiac valvular Dopplers 4. Upper limits of normal RV systolic pressure 5. No gross pericardial effusion Findings Procedure Information Contrast agent, definity, is being given per protocol without apparent complications. Left Ventricle Normal left ventricular cavity size. There is normal left ventricular wall thickness. The left ventricular systolic function is moderately decreased. The visually estimated ejection fraction is between 35-40%. Diastolic function is indeterminate on the basis of available data. Right Ventricle Normal right ventricular cavity size. There is mildly decreased right ventricular systolic function. Atria The left atrium is moderately dilated. There is no evidence of interatrial shunt. The right atrium is mildly dilated. Aortic Valve Normal aortic valve structure and function. There is no aortic valve stenosis. There is no aortic valve regurgitation. Mitral Valve There is mild anterior mitral leaflet thickening. There is mild mitral annular calcification. There is trace mitral valve regurgitation. There is no mitral valve stenosis. Pulmonic Valve The pulmonic valve was not well visualized. Tricuspid Valve Normal tricuspid valve structure. There is mild tricuspid valve regurgitation. The right ventricular systolic pressure is 36 mmHg. Normal right atrial pressure. There is no evidence of pulmonary hypertension. Great Vessels All visible segments of the aorta are normal in size. The pulmonary artery was not well visualized. Small plaque is seen in the sinuses of Valsalva. Venous The inferior vena cava is normal in size and collapses greater than 50% with inspiration. Pericardium/Pleural There is no evidence of pericardial effusion. Prior Study Comparison No significant change compared to prior study dated: 09/04/2023. Measurements 2D Linear Measurements IVSd: 1.00 0.6-0.9/0.6-1.0 cm LVIDd: 4.65 3.9-5.3/4.2-5.9 cm LVIDd Index: 2.47 2.4-3.2/2.2-3.1 cm/m2 LVIDs: 3.63 2.0-3.6 cm LVPWd: 1.08 0.7-1.1 cm Ao Root: 3.30 2.1-3.5 cm LA Diam: 4.40 2.7-3.8/3.0-4.0 cm LAIDs Index: 2.34 1.5-2.3 cm/m2 LV Mass: 212.45 67-162/88-224 g LV Mass Index: 113.00 43-95/49-115 g/m2 LVOT Diam: 2.00 3.0+(-)1.3 cm 2D Systolic Function EF 4C: 36.70 >55% EF 2C: 38.90 >55% EF BiP: 38.70 >55% Mitral Valve MV Pk E: 0.77 MV PK A: 0.34 MV Decel Time: 203.00 E/A: 2.30 PHT: 59.00 MVA PHT: 3.73 Decel [place]on: 3.80 Aortic Valve AoV Pk Ramos: 1.61 AoV Mn Ramos: 1.12 AoV VTI: 0.33 AoV Pk Grad: 10.00 Aov Mn Grad: 6.00 KOLE Cont.VTI: 1.81 LVOT LVOT Pk Ramos: 0.91 LVOT Mn Ramos: 0.64 LVOT VTI: 0.19 LVOT Pk Grad: 3.00 LVOT Mn Grad: 2.00 LVOT Diam: 2.00 LVOT Area: 3.14 Diastolic Function MV Pk E: 0.77 MV Pk A: 0.34 E/A: 2.30 Right Ventricle TAPSE (mm): 15.20 TVS' Ramos: 6.97 Tricuspid Valve TR Pk Ramos: 2.86 TR Pk Grad: 33.00 RA Press: 3.00 RVSP: 36.00 Great Vessels Aorta Ao Root-2D: 3.30 2.0-3.7 cm Ao Asc: 3.00 2.1-3.4 cm Ao Arch: 2.60 Updated in Other Vendor System with Status of Final Lyle Islas MD electronically signed on 08/04/2024 2:09:23 PM with status of Final
== END ==
LOC: HO.CARD 08:53
PROVIDERS: PCP Family Medicine; Visit Provider Internal Medicine Cardiovascular Disease
DX: I50.20 Unspecified systolic (congestive) heart failure (principal)
CPT/HCPCS: 93306; Q9957

== ENCOUNTER → 2024-08-04 08:55 | Outpatient (BNV) | payer MEDICARE, SELFPAY | PROVIDERS: PCP Family Medicine; Visit Provider Internal Medicine Cardiovascular Disease | DX: I36.1 Nonrheumatic tricuspid (valve) insufficiency (principal); I34.81 Nonrheumatic mitral (valve) annulus calcification; I50.20 Unspecified systolic (congestive) heart failure | CPT/HCPCS: 93306 ==

== ENCOUNTER 2024-08-16 09:00 | Outpatient (AMB) | payer MEDICARE, SELFPAY ==
[2024-08-16 09:10] VITALS: BP 118/64; PULSE 50; BMI 24.4
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
== END 2024-08-16 09:30 | disposition home or self-care (01) ==
PROVIDERS: PCP Family Medicine; Visit Provider Internal Medicine Cardiovascular Disease
DX: I48.92 Unspecified atrial flutter (principal); I42.9 Cardiomyopathy, unspecified
CPT/HCPCS: 99214

== ENCOUNTER 2024-08-16 12:40 | Outpatient (REF) | payer MEDICARE, SELFPAY ==
[2024-08-16 17:04] LABS: Digoxin 0.8 ng/mL (0.8-2.0)
== END 2024-08-16 12:41 | disposition home or self-care (01) ==
LOC: HO.WFDLDS 12:40
PROVIDERS: Visit Provider Internal Medicine Cardiovascular Disease
DX: I48.92 Unspecified atrial flutter (principal); I42.9 Cardiomyopathy, unspecified
CPT/HCPCS: 36415; 80162; 99212

== ENCOUNTER 2024-08-19 10:53 | Outpatient (REF) | payer MEDICARE, SELFPAY ==
--- NOTE | ~2024-08-19 | US_ITS ---
EXAMINATION: US PELVIS LIMITED (BLADDER) CLINICAL INFORMATION: Poor urinary stream. COMPARISON: None available. TECHNIQUE: Real-time imaging of the bladder. FINDINGS: BLADDER: The bladder is well distended but trabeculated with a thickened wall with multiple small diverticula with a single larger diverticulum measuring 2.5 x 1.2 x 1.9 cm on the right.. Bilateral ureteral jets are demonstrated. Prevoid bladder volume is 478 mL. Postvoid bladder volume is 248 mL. PROSTATE: Prostate is mildly enlarged at 32 mL and contains calcification. US/US bladder IMPRESSION: Thickened trabeculated bladder with multiple diverticula and mildly enlarged prostate with large postvoid residual. Electronically signed by: Orville Saha MD 08/27/2024 12:45 AM EDT
== END 2024-08-19 10:54 | disposition home or self-care (01) ==
LOC: HO.US 10:53
PROVIDERS: PCP Family Medicine; Visit Provider Urology
DX: R39.12 Poor urinary stream (principal); R35.0 Frequency of micturition
CPT/HCPCS: 76857

== ENCOUNTER 2024-08-31 10:46 | Outpatient (AMB) | payer MEDICARE, SELFPAY ==
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
== END 2024-08-31 12:08 | disposition home or self-care (01) ==
PROVIDERS: PCP Family Medicine; Visit Provider Urology
DX: R35.0 Frequency of micturition (principal); Z13.9 Encounter for screening, unspecified
CPT/HCPCS: 52000; 99214

== ENCOUNTER → 2024-08-31 10:46 | Outpatient (BNVA) | payer MEDICARE, SELFPAY | PROVIDERS: PCP Family Medicine; Visit Provider Urology | DX: R35.0 Frequency of micturition (principal) | CPT/HCPCS: 52000; 81003; 99212 ==

== ENCOUNTER 2024-10-04 09:03 | Day surgery (SDC) | payer MEDICARE, SELFPAY ==
[2024-09-30 12:02] VITALS: BMI 24.4
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
[2024-10-01 09:38] VITALS: BMI 24.4
[2024-10-04] VITALS (8 sets, daily range): BP systolic 144–160; BP diastolic 73–91; PULSE 55–84; RESP 16; TEMP 36.1–36.4; O2SAT 97–99; BMI 24.4
[2024-10-04] MEDS: Lactated Ringers 1,000 ML 100 ML IVCONT (09:46)
--- NOTE | 2024-10-04 11:05 | MHC.SHP ---
Pre-Procedural Eval Section A - 24 Hr Update-Section A only Date of Service: 10/04/24 The patient is an INPATIENT: No Changes since office visit: No Cold of Flu in the past 2 weeks, No New Medical Problems, No Changes in Medication and No Patient answered all questions The patient has been examined within 24 hours of the surgical procedure. The History & Physical has been completed within 30 days and I have reviewed it.: Yes Section B - Complete if H&P > 30 days Chief Complaint: Bladder-neck obstruction Details of Present Illness: GreenLight laser prostatectomy Allergies: Allergies Allergy/AdvReac Type Severity Reaction Status Date / Time latex [LATEX] Allergy Intermediate RASH Verified 10/04/24 09:19 lisinopril Allergy Intermediate shortness Verified 10/04/24 09:19 of breath Seasonal Allergies Allergy Intermediate Runny Nose Verified 10/04/24 09:19 Review of Systems Sugical H&P ROS: Negative: Constitution, Cardiovascular, Respiratory, Neurological, Psychiatric, Hem-Onc, Allergic/Immunologic, Gastrointestinal, Genitourinary, Musculoskeletal, Integumentary, Endocrine and Eyes/Ears/Nose/Throat Exam Surgical H&P Exam: Normal: HEENT, Normal: Heart, Normal: Lungs, Normal: Extremities, Normal: Abdomen, Normal: Skin and Normal: Neurological Plan Diagnosis/Plan: Unchanged (GreenLight laser prostatectomy) I have reviewed the history and physical and performed a pertinent physical examination on my patient. No changes have occurred unless specified. Time Spent With Patient Time: Total time managing care of this patient today ____ minutes.
--- NOTE | 2024-10-05 23:09 | W.PM.OPN ---
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 Surgeon: Dr Eliel Arriola Anesthesia: General History of bladder outlet obstruction. Treated with alpha-christina and other medications. Still with symptoms. On cystoscopy in office has a tight bladder neck with enlarged posterior bladder diverticulum. Recommendation for prostate procedure with laser enucleation of prostate and ablation of bladder diverticulum with incision of bladder diverticular neck. Risks and benefits have been discussed. Focus was placed on development of retrograde ejaculation which is a normal part of this procedure. Procedure: After informed consent was verified the patient was brought to the operating room and placed in a supine position. Anesthesia was administered per protocol. Patient was placed in modified dorsal lithotomy position and prepped and draped in a sterile fashion. Safety pause time-out was confirmed. Antibiotics have been given. A Twenty-four Persian laser cystoscope was inserted per urethra. No abnormalities were found of the anterior and bulbar urethra. The prostatic urethra shows tight bladder neck. The bladder was examined and both ureteric orifices were seen in their normal positions away from the area of interest. Bladder trabeculation grade 3/4. Posterior bladder diverticulum and 2 other smaller diverticulum was seen The 1st component of the procedure was ablation of the bladder diverticulum and incision of the neck of the bladder diverticulum. Posterior larger diverticulum was treated 1st. Incisions were made through the thickened collagen structures around the bladder neck at the 09:00 o'clock, 03:00 o'clock and 06:00 o'clock positions. The GreenLight laser on low power settings of 40 was then used to ablate the lining of the diverticulum thus causing retraction. A similar procedure was repeated on 2 other diverticulum a reasonable size.. Using a GreenLight laser with settings of 80 todd incisions were made at the 5 and 7 o'clock position. The incisions were taken down from the bladder neck down to the level of the veru. These were gradually deepened in order to define the lateral aspects of the median lobe area. Once clearly defined they will also extended in the lateral directions in order to create a deep groove. The median lobe was then ablated and enucleated tissue released into the bladder with the laser power increased to 120 W. Once the median lobe area had been cleared attention was directed to the lateral lobes. The 2 grooves at 5 07:00 o'clock were developed further and swung up to the sidewall of the prostate. The patient did not have extensive lateral lobe tissue. When this was had been completed debris and pieces of prostate were removed from the bladder with irrigation. Both ureteric orifices were reviewed again in shown to be patent in away from any areas of energy damage. The apical area was reviewed in any stray ooze was controlled. A 22 Persian 30 cc balloon Vázquez catheter was placed over a stylet into the bladder. Clear efflux was obtained upon irrigation with a Jeniffer piston syringe. 30 cc was placed in the balloon and gentle traction was placed. A snap was used to hold tension on the catheter to control bleeding during patient moved and transported. A drainage bag was placed. Once transportation is complete to the PACU the snap will be removed. The patient tolerated the procedure well, he was extubated in the operating and transferred in a stable condition to the recovery area. Pathology: Prostate tissue Drains: Vázquez catheter
== END 2024-10-04 14:08 | disposition home or self-care (01) ==
PROVIDERS: PCP Family Medicine; Visit Provider Urology
PROC: (CPT 52648; principal; 2024-10-04 10:50)
DX: N32.0 Bladder-neck obstruction (principal); N32.3 Diverticulum of bladder; N32.89 Other specified disorders of bladder; R35.0 Frequency of micturition; I10 Essential (primary) hypertension; E78.00 Pure hypercholesterolemia, unspecified; J30.2 Other seasonal allergic rhinitis; I42.9 Cardiomyopathy, unspecified; I48.92 Unspecified atrial flutter; Z79.01 Long term (current) use of anticoagulants; Z79.899 Other long term (current) drug therapy; Z88.8 Allergy status to other drugs, medicaments and biological substances; Z91.040 Latex allergy status; Z87.891 Personal history of nicotine dependence; Z98.890 Other specified postprocedural states
CPT/HCPCS: 52649; 52305; 88305; J0131; J1100; J1956; J2003; J2405; J2704; J3010

== ENCOUNTER → 2024-10-04 09:03 | Outpatient (BNV) | payer MEDICARE, SELFPAY | PROVIDERS: PCP Family Medicine; Visit Provider Urology | DX: N32.0 Bladder-neck obstruction (principal); N32.3 Diverticulum of bladder | CPT/HCPCS: 52649 ==

== ENCOUNTER → 2024-10-07 07:56 | Outpatient (BNVA) | payer MEDICARE, SELFPAY | PROVIDERS: PCP Family Medicine; Visit Provider Urology | DX: R35.0 Frequency of micturition (principal); R35.1 Nocturia | CPT/HCPCS: 51700; 51798 ==

== ENCOUNTER 2024-11-18 11:12 | Outpatient (AMB) | payer MEDICARE, SELFPAY ==
--- OUTSIDE RECORDS SUMMARY | 2024-11-18 11:14 | XMS_ITS | Continuity of Care Document ---
Author Organization [facility] Address [address] [address] Insurance Providers Payer Plan Claims Address Claims Phone Policy Number Group Number Relation Employer Guarantor Name Guarantor Guarantor Address Guarantor Phone MCR (WNR) MCR (WNR) tel:[phone] [id number] Self Leandro Fernandez [address] [place] [address] [id number] MCR (WNR) MCR (WNR) [phone] [id number] Self Leandro Fernandez [address] [place] [address] [id number] MCR (WNR) MCR (WNR) [facility] [address] [address] tel:[phone] [id number] [id number] Self Leandro Fernandez [address] [place] [address] [id number] Problems Unknown Problems Results Test Value / Unit Interpretation Reference Ran Comp. Metabolic Panel (14)[[id number]]?Collected: 10/11/2024 05:11 PM?Specimen Received: 10/11/2024 05:00 AM?Source: [facility] Glucose [997287] 118 mg/dL H 70-99 mg/dL BUN [489517] 24 mg/dL 8-27 mg/dL Creatinine [488695] 1.01 mg/dL 0.76-1.2 7 mg/dL eGFR [716650] 76 mL/min/1.73 >59 mL/min/1 .73 BUN/Creatinine Ratio [028573] 24 10-24 Sodium [788314] 142 mmol/L 134-144 mmol /L Potassium [263850] 5.0 mmol/L 3.5-5.2 m mol/L Chloride [214617] 104 mmol/L 96-106 mmo l/L Carbon Dioxide, Total [752703] 22 mmol/L 20-29 mmol/L Calcium [231193] 9.7 mg/dL 8.6-10.2 mg /dL Protein, Total [087836] 7.4 g/dL 6.0- 8.5 g/dL Albumin [357094] 4.4 g/dL 3.8-4.8 g/d L Globulin, Total [059362] 3.0 g/dL 1.5 -4.5 g/dL Bilirubin, Total [574371] 0.7 mg/dL 0. 0-1.2 mg/dL Alkaline Phosphatase [546045] 75 IU/L 44-121 IU/L AST (SGOT) [573145] 35 IU/L 0-40 IU/ L ALT (SGPT) [946455] 22 IU/L 0-44 IU/ L Lipid Panel[475154]?Collected: 10/11/2024 05:11 PM?Specimen Received: 10/11/2024 05:00 AM?Source: [facility] Cholesterol, Total [105566] 169 mg/dL 100-199 mg/dL Triglycerides [678687] 75 mg/dL 0-149 mg/dL HDL Cholesterol [483473] 39 mg/dL L >39 mg/dL VLDL Cholesterol Antonio [770458] 14 mg/dL 5-40 mg/dL LDL Chol Calc ([facility]) [013735] 116 mg/dL H 0-99 mg/dL Hemoglobin A1c[146031]?Collected: 10/11/2024 05:11 PM?Specimen Received: 10/11/2024 05:00 AM?Source: [facility] Hemoglobin A1c [121550] 6.4 % H 4.8- 5.6 % . Prediabetes: 5.7 - 6.4 Kelli betes: >6.4 Glycemic control for adults with diabetes: 7.0 Allergies, adverse reactions, alerts No known allergies and adverse reactions Medications No administered medications reported Vital Signs No vital signs reported Social History No smoking Hx information available
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
== END 2024-11-18 12:13 | disposition home or self-care (01) ==
PROVIDERS: PCP Family Medicine; Visit Provider Urology
DX: R35.0 Frequency of micturition (principal); R35.1 Nocturia
CPT/HCPCS: 99024

== ENCOUNTER → 2024-11-18 11:12 | Outpatient (BNVA) | payer MEDICARE, SELFPAY | PROVIDERS: PCP Family Medicine; Visit Provider Urology | DX: R35.0 Frequency of micturition (principal); R35.1 Nocturia | CPT/HCPCS: 51798; 99212 ==

== ENCOUNTER 2025-01-28 09:11 | Outpatient (REF) | payer MEDICARE, SELFPAY ==
--- OUTSIDE RECORDS SUMMARY | 2025-01-28 09:53 | XMS_ITS | Encounter Summary ---
Author Organization [email or web address] Address [address] [place] [address] Care Team Providers Care Snuff Maker Name Role Phone Yovana Flores MD Primary Care Provider Unavail able Encounter Details Date Type Department Care Team Description 12/22/2018 Release of Information Medical Records [address] [place] [id number] Abstract, Provider Social History Tobacco Use Types Packs/Day Years Used Date Smoking Tobacco: Former Cigarettes 1 30 Smokeless Tobacco: Never Comments:1990 Alcohol Use Standard Drinks/Week Comments Yes 0 (1 standard drink = 0.6 oz pur e alcohol) once in a while. No heavy Sex Assigned at Date Recorded Not on file documented as of this encounter Plan of Treatment Not on file documented as of this encounter Visit Diagnoses Not on filedocumented in this encounter Care Teams Snuff Maker Relationship Specialty Start Date End Date Yovana Flores MD PCP - General Internal Medicine 12/19/16 documented as of this encounter
--- OUTSIDE RECORDS SUMMARY | 2025-01-28 09:53 | XMS_ITS | Encounter Summary ---
[facility] Organization [facility] Address [address] [place] [address] Care Team Providers Care Filter Tank Tender Helper Head Name Role Phone Yovana Flores MD Primary Care Provider Unavail able Reason for Visit * Reason Onset Date Comments injection 08/07/2021 Encounter Details Date Type Department Care Team Description 08/07/2021 Telephone Physiatry - [place] [address] [place] [address] [phone] Ambrocio Sanford PA-C injection Social History Tobacco Use Types Packs/Day Years Used Date Smoking Tobacco: Former Cigarettes 1 30 Smokeless Tobacco: Never Comments:1991 Alcohol Use Standard Drinks/Week Comments Yes 0 (1 standard drink = 0.6 oz pur e alcohol) once in a while. No heavy Sex Assigned at Date Recorded Not on file documented as of this encounter Miscellaneous Notes * Telephone Encounter - Rossana Ho L.P.N. - 08/07/2021 11:23 AM EDT I called patient to see if he has been called for his injection With Dr Salgado He states that he was to have injection done yesterday But he would have a $250.00 cost so he decided not to have it With Dr Davis office [facility] I asked Him to let us know if he [facility] Message to Mr Sanford for FYI documented in this encounter Plan of Treatment Not on file documented as of this encounter Visit Diagnoses Not on filedocumented in this encounter Care Teams Filter Tank Tender Helper Head Relationship Specialty Start Date End Date Yovana Flores MD PCP - General Internal Medicine 12/19/16 documented as of this encounter
--- OUTSIDE RECORDS SUMMARY | 2025-01-28 09:53 | XMS_ITS | Clinical Summary ---
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 Prediabetes 02/10/2020 Former tobacco use 02/09/2018 Overview: 30 yrs quit 1990 Osteoarthritis of left knee 02/09/2018 Overview: Follows with physiatry HTN (hypertension) 03/28/2015 Chronic leukopenia 03/28/2015 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 Special screening for malignant neoplasms, colon 09/26/2009 08/14/2010 Overview: Negative colonoscopy 09/26/2009, no colon cancer screening needed for 10 years. NO ACTIVE MEDICAL PROBLEMS 06/07 Immunizations Name Administration Dates Next Due Influenza (> 6 Months) 12/19/2016,10/03/2015 Pneumoccoccal(Adult) Polysaccharide PPSV23 08/20 Pneumococcal Conjugate PCV-13 12/19/2016 Tdap 06/07/2009 Zostavax 12/18/2012 Family History Medical History Relation Name Comments Autoimmune Negative Hx CA Breast Negative Hx CA Colon Negative Hx CA Prostate Negative Hx CAD Negative Hx CHF Negative Hx Cholesterol Level Negative Hx Diabetes Negative Hx Hypertension Negative Hx ID Negative Hx Mental Disorder Negative Hx Sleep Apnea Negative Hx Thyroid Disorder Negative Hx Relation Name Status Comments Daughter 1 Alive Daughter 2 Alive Father no known Mother pvd Sister 1 Alive Sister 2 Alive Sister 3 Alive Sister 4 Alive Son Alive Social History Tobacco Use Types Packs/Day Years Used Date Smoking Tobacco: Former Cigarettes 1 30 Smokeless Tobacco: Never Comments:1991 Alcohol Use Standard Drinks/Week Comments Yes 0 (1 standard drink = 0.6 oz pur e alcohol) once in a while. No heavy Sex Assigned at Date Recorded Not on file Last Filed Vital Signs Vital Sign Reading Time Taken Comments Blood Pressure 136/78 06/26/2021 8:56 AM EDT Pulse 80 06/26/2021 8:56 AM EDT Temperature 35.8 ??C (96.4 ??F) 06/26/2021 8:56 AM ED T Respiratory Rate 18 02/07/2020 8:40 AM EDT Oxygen Saturation 96% 09/26/2009 9:45 AM EST Inhaled Oxygen Concentration - - Weight 79.4 kg (175 lb) 06/26/2021 8:56 AM EDT Height 175.3 cm (5' 9 ) 06/26/2021 8:56 AM EDT Body Mass Index 25.84 06/26/2021 8:56 AM EDT Plan of Treatment Health Maintenance Due Date Last Done Comments Covid-19 Vaccine (#1) 1945 SHINGLES VACCINE (2 of 3) 02/12/2013 12/18/2012 DEPRESSION SCREEN 02/09/2019 02/09/2018 FALL RISK ASSESSMENT 02/09/2019 02/09/2018 COLON CANCER SCREEN WITH STO OL CARD 01/25/2021 01/26/2020, 09/21/2019, 09/26/2009 INFLUENZA (#1) 2024 11/20/2018 (Exte rnal Completion), 02/09/2018 (Refused), 12/19/2016, Additional history exists BMI CHECK/ADVISE 11/24/2024 01/31/2020, 07/2020, 11/20/2018, Additional history exists CHOLESTEROL SCREENING 02/06/2025 02/07/2020 , 02/11/2018, 12/27/2016, Additional history exists DTAP/TDAP/TD (3 - Td or Tdap) 11/28/2026 (External Completion), 06/07/2009 HEPATITIS C SCREENING Completed 03/09/2014 PNEUMOCOCCAL VACCINE Completed 12/19/2016, 08/20/20 11 Care Teams Boxcar Weigher Relationship Specialty Start Date End Date Yovana Flores MD PCP - General Internal Medicine 12/19/16
--- OUTSIDE RECORDS SUMMARY | 2025-01-28 09:53 | XMS_ITS | Encounter Summary ---
Author Organization [facility] Address [address] [place] [address] Care Team Providers Care Property Inspector Name Role Phone Yovana Flores MD Primary Care Provider Unavail able Encounter Details Date Type Department Care Team Description 01/31/2021 Old Medical Records Medical Records [address] [place] [id number] Abstract, Provider Social History Tobacco Use Types [...] on filedocumented in this encounter Care Teams Property Inspector Relationship Specialty Start Date End Date Yovana Flores MD PCP - General Internal Medicine 12/19/16 documented as of this encounter
--- OUTSIDE RECORDS SUMMARY | 2025-01-28 09:53 | XMS_ITS | Encounter Summary ---
Author Organization [facility] Address [address] [place] [address] Care Team Providers Care Trailer Chief Name Role Phone Yovana Flores MD Primary Care Provider Unavail able Encounter Details Date Type Department Care Team Description 01/28/2020 Orders Only Medical Records [address] [place] [address] Amee Wolfe MD [address], [place] [id number] Social History Tobacco Use Types Packs/Day Years Used Date Smoking Tobacco: Former Cigarettes 1 30 Smokeless Tobacco: Never Comments:1990 Alcohol Use Standard Drinks/Week Comments Yes 0 (1 standard drink = 0.6 oz pur e alcohol) once in a while. No heavy Sex Assigned at Date Recorded Not on file documented as of this encounter Progress Notes * Dedra Wolfe MD - 02/09/2020 4:19 PM EDT Dear Mr. Argueta, The polyp(s) that were removed during your colonoscopy were precancerous, but benign. Fortunately, we removed them and therefore, they will not cause any more problems in the future. Based on the number, the size, and the features of the polyp(s) removed, I no longer recommend a colonoscopy for you in the future unless you have issues. I would like to personally thank you for allowing us to take care of you. Please don't hesitate to call us for any questions or concerns. Regards, Ibeth Wolfe MD Board Certified Gastroenterology and Internal Medicine Transplant Hepatology [facility] documented in this encounter Plan of Treatment Not on file documented as of this encounter Procedures Procedure Name Priority Date/Time Associated Diagnosis Comments OUTSIDE PATHOLOGY Routine 01/26/2020 documented in this encounter Results * OUTSIDE PATHOLOGY (01/26/2020) H Erwin Wolfe MD OUTSIDE LAB documented in this encounter Visit Diagnoses Not on filedocumented in this encounter Care Teams Trailer Chief Relationship Specialty Start Date End Date Yovana Flores MD PCP - General Internal Medicine 12/19/16 documented as of this encounter
--- OUTSIDE RECORDS SUMMARY | 2025-01-28 09:53 | XMS_ITS | Encounter Summary ---
[facility] Address [address] [place] [address] Care Team Providers Care Wet Room Supervisor Name Role Phone Yovana Flores MD Primary Care Provider Unavail able Encounter Details Date Type Department Care Team Description 07/15/2018 Pt. Non Urgent Medic al Question Physiatry - [address] [address] Taz Alves DO Social History Tobacco Use Types Packs/Day Years Used Date Smoking Tobacco: Former Cigarettes 1 30 Smokeless Tobacco: Never Comments:1991 Alcohol Use Standard Drinks/Week Comments Yes 0 (1 standard drink = 0.6 oz pur e alcohol) once in a while. No heavy Sex Assigned at Date Recorded Not on file documented as of this encounter Progress Notes * Rosibel Richard M.A. - 07/15/2018 9:40 AM EDTFrom: Leandro Fernandez To: Taz Alves DO Sent: 07/15/2018 9:32 AM EDT Subject: July 21 appointment Please cancel my appointment and reschedule. Thanks Marcos documented in this encounter Plan of Treatment Not on file documented as of this encounter Visit Diagnoses Not on filedocumented in this encounter Care Teams Wet Room Supervisor Relationship Specialty Start Date End Date Yovana Flores MD PCP - General Internal Medicine 12/19/16 documented as of this encounter
--- OUTSIDE RECORDS SUMMARY | 2025-01-28 09:54 | XMS_ITS | Encounter Summary ---
Author Organization [facility] Address [address] [place] [address] Care Team Providers Care Passenger Locomotive Engineer Name Role Phone Yovana Flores MD Primary Care Provider Unavail able Encounter Details Date Type Department Care Team Description 08/09/2017 Release of Information Medical Records [address] [place] [id number] Abstract, Provider Social History Tobacco Use Types [...] on filedocumented in this encounter Care Teams Passenger Locomotive Engineer Relationship Specialty Start Date End Date Yovana Flores MD PCP - General Internal Medicine 12/19/16 documented as of this encounter
--- OUTSIDE RECORDS SUMMARY | 2025-01-28 09:54 | XMS_ITS | Encounter Summary ---
[facility] Address [address] [place] [address] Care Team Providers Care Traffic Sign Supervisor Name Role Phone Name, Alex SOUZA Primary Care Provider Unavailabl e Yovana Flroes MD Primary Care Provider Unavail able Encounter Details Date Type Department Care Team Description 03/28/2014 [facility] [address] [place] [address] Md Shashank Social History Tobacco Use Types Packs/Day Years Used Date Smoking Tobacco: Former Cigarettes 1 30 Comments:1990 Alcohol Use Standard Drinks/Week Comments Yes 0 (1 standard drink = 0.6 oz pur e alcohol) once in a while. No heavy Sex Assigned at Date Recorded Not on file documented as of this encounter Plan of Treatment Not on file documented as of this encounter Visit Diagnoses Not on filedocumented in this encounter Care Teams Traffic Sign Supervisor Relationship Specialty Start Date End Date Name, MD Alex PCP - General 05/30/09 12/18/16 Yovana Flores MD PCP - General Internal Medicine 12/19/16 documented as of this encounter
--- OUTSIDE RECORDS SUMMARY | 2025-01-28 09:54 | XMS_ITS | Encounter Summary ---
[facility] Address [address] [place] [address] Care Team Providers Care Senior Chemical Process Engineer Name Role Phone Yovana Flores MD Primary Care Provider Unavail able Encounter Details Date Type Department Care Team Description 06/03/2017 Pt. Non Urgent Medic al Question Adult Medicine [address] [id number] Yovana Flores MD Social History Tobacco Use Types Packs/Day Years Used Date Smoking Tobacco: Former Cigarettes 1 30 Smokeless Tobacco: Never Comments:1990 Alcohol Use Standard Drinks/Week Comments Yes 0 (1 standard drink = 0.6 oz pur e alcohol) once in a while. No heavy Sex Assigned at Date Recorded Not on file documented as of this encounter Progress Notes * Jamila Quiñones C.M.A. - 06/03/2017 2:48 PM EDTFrom: Leandro Fernandez To: Yovana Ibrahim MD Sent: 06/03/2017 2:38 PM EDT Subject: medication Dr. Ibrahim, I tried the Tylenol last night. It did not help so I tried the prescription medicine. That did not help. I took the prescription medicine again in the morning and again at 2PM and it still did not help. Should I continue to take the medication? Thanks. Leandro Fernandez, 1945-- [email or web address] documented in this encounter Plan of Treatment Not on file documented as of this encounter Visit Diagnoses Not on filedocumented in this encounter Care Teams Senior Chemical Process Engineer Relationship Specialty Start Date End Date Yovana Flores MD PCP - General Internal Medicine 12/19/16 documented as of this encounter
--- OUTSIDE RECORDS SUMMARY | 2025-01-28 09:54 | XMS_ITS | Continuity of Care Document ---
Author Organization [facility] Address [address] [address] Insurance Providers Payer Plan Claims Address Claims Phone Policy Number Group Number Relation Employer Guarantor Name Guarantor Guarantor Address Guarantor Phone MCR (WNR) MCR (WNR) tel:[phone] [id number] 35 Self Leandro Fernandez [address] [place] [address] [id number] MCR (WNR) MCR (WNR) [phone] [id number] 35 Self Leandro Fernandez [address] [place] [address] [id number] MCR (WNR) MCR (WNR) [facility] [address], [place] [address] tel:[phone] [id number] Self Leandro Fernandez [address] [place] [address] [id number] Problems Unknown Problems Results Test Value / Unit Interpretation Reference Ran Comp. Metabolic Panel (14)[[id number]]?Collected: 10/11/2024 05:11 PM?Specimen Received: 10/11/2024 05:00 AM?Source: [facility] Glucose [[id number]] 118 mg/dL H 70-99 mg/dL BUN [511910] 24 mg/dL 8-27 mg/dL Creatinine [701671] 1.01 mg/dL 0.76-1.2 7 mg/dL eGFR [110211] 76 mL/min/1.73 >59 mL/min/1 .73 BUN/Creatinine Ratio [393823] 24 10-24 Sodium [531347] 142 mmol/L 134-144 mmol /L Potassium [861134] 5.0 mmol/L 3.5-5.2 m mol/L Chloride [642263] 104 mmol/L 96-106 mmo l/L Carbon Dioxide, Total [136757] 22 mmol/L 20-29 mmol/L Calcium [586883] 9.7 mg/dL 8.6-10.2 mg /dL Protein, Total [054382] 7.4 g/dL 6.0- 8.5 g/dL Albumin [519062] 4.4 g/dL 3.8-4.8 g/d L Globulin, Total [187613] 3.0 g/dL 1.5 -4.5 g/dL Bilirubin, Total [782431] 0.7 mg/dL 0. 0-1.2 mg/dL Alkaline Phosphatase [337765] 75 IU/L 44-121 IU/L AST (SGOT) [929464] 35 IU/L 0-40 IU/ L ALT (SGPT) [146879] 22 IU/L 0-44 IU/ L Lipid Panel[[id number]]?Collected: 10/11/2024 05:11 PM?Specimen Received: 10/11/2024 05:00 AM?Source: [facility] Cholesterol, Total [638346] 169 mg/dL 100-199 mg/dL Triglycerides [704783] 75 mg/dL 0-149 mg/dL HDL Cholesterol [977409] 39 mg/dL L >39 mg/dL VLDL Cholesterol Antonio [884946] 14 mg/dL 5-40 mg/dL LDL Chol Calc ([facility]) [711210] 116 mg/dL H 0-99 mg/dL Hemoglobin A1c[326936]?Collected: 10/11/2024 05:11 PM?Specimen Received: 10/11/2024 05:00 AM?Source: [facility] Hemoglobin A1c [324276] 6.4 % H 4.8- 5.6 % . Prediabetes: 5.7 - 6.4 Kelli betes: >6.4 Glycemic control for adults with diabetes: 7.0 Allergies, adverse reactions, alerts No known allergies and adverse reactions Medications No administered medications reported Vital Signs No vital signs reported Social History No smoking Hx information available
--- OUTSIDE RECORDS SUMMARY | 2025-01-28 09:54 | XMS_ITS | Clinical Summary ---
Author Organization [facility] Address [address] [place] [address] Care Team Providers Care Sound Recordist Name Role Phone Unavailable Primary Care Provider Unavailabl e Allergies Active Allergy Reactions Criticality Noted Date Comments Latex Rash Low 08/02/2021 Lisinopril Other (See Comments) 08/02/2021 cough Medications No known medications Social History Tobacco Use Types Packs/Day Years Used Date Smoking Tobacco: Former Cigarettes 1 15 Smokeless Tobacco: Never Alcohol Use Standard Drinks/Week Comments Yes 0 (1 standard drink = 0.6 oz pur e alcohol) occasional Sex and Gender Information Value Date Recorded Sex Assigned at Male 08/01/2021 2:52 PM EDT Gender Identity Not on file Sexual Orientation Not on file Job Start Date Occupation Industry Not on file Not on file Not on file Last Filed Vital Signs Vital Sign Reading Time Taken Comments Blood Pressure - - Pulse - - Temperature - - Respiratory Rate - - Oxygen Saturation - - Inhaled Oxygen Concentration - - Weight 79.4 kg (175 lb) 08/02/2021 12:59 PM EDT Height 175.3 cm (5' 9 ) 08/02/2021 12:59 PM EDT Body Mass Index 25.84 08/02/2021 12:59 PM EDT Plan of Treatment Not on file Leandro Fernandez Personal/Famil y Self 1945 [address] [place] [address]
--- OUTSIDE RECORDS SUMMARY | 2025-01-28 09:54 | XMS_ITS | Encounter Summary ---
Author Organization [facility] Address [address] [place] [address] Care Team Providers Care Gas Producer Name Role Phone Alex Rico MD Primary Care Provider Unavailabl e Yovana Flores MD Primary Care Provider Unavail able Encounter Details Date Type Department Care Team Description 04/05/2015 Pt. Non Urgent Medic al Question Adult Medicine [address] [address] Alex Rico MD Social History Tobacco Use Types Packs/Day Years Used Date Smoking Tobacco: Former Cigarettes 1 30 Comments:1991 Alcohol Use Standard Drinks/Week Comments Yes 0 (1 standard drink = 0.6 oz pur e alcohol) once in a while. No heavy Sex Assigned at Date Recorded Not on file documented as of this encounter Progress Notes * Jeanette Shah M.A. - 04/05/2015 10:28 AM EDTFrom: Leandro Fernandez To: Alex Rico MD Sent: 04/05/2015 10:09 AM EDT Subject: Therapist dione Esquivel As I told you I was seeing a therapist last winter for my back and hip. I have started to see her again until I see Horseradish Maker. Thanks Marcos documented in this encounter Plan of Treatment Not on file documented as of this encounter Visit Diagnoses Not on filedocumented in this encounter Care Teams Gas Producer Relationship Specialty Start Date End Date Alex Rico MD PCP - General 05/30/09 12/18/16 Yovana Flores MD PCP - General Internal Medicine 12/19/16 documented as of this encounter
--- OUTSIDE RECORDS SUMMARY | 2025-01-28 09:54 | XMS_ITS | Encounter Summary ---
Author [facility] Address [address] [place] [address] Care Team Providers Care Pin Machine Tender Name Role Phone Name, Alex SOUZA Primary Care Provider Unavailabl e Yovana Flores MD Primary Care Provider Unavail able Encounter Details Date Type Department Care Team Description 05/03/2014 Tax Clerk Report Medical Records [address] [place] [address] Mackenzie Broderick MD Social History Tobacco Use Types Packs/Day Years Used Date Smoking Tobacco: Former Cigarettes 30 Comments:1990 Alcohol Use Standard Drinks/Week Comments Yes 0 (1 standard drink = 0.6 oz pur e alcohol) once in a while. No heavy Sex Assigned at Date Recorded Not on file documented as of this encounter Plan of Treatment Not on file documented as of this encounter Visit Diagnoses Not on filedocumented in this encounter Care Teams Pin Machine Tender Relationship Specialty Start Date End Date Name, MD Alex PCP - General 05/30/09 12/18/16 Yovana Flores MD PCP - General Internal Medicine 12/19/16 documented as of this encounter
--- OUTSIDE RECORDS SUMMARY | 2025-01-28 09:54 | XMS_ITS | Encounter Summary ---
[facility] Address [address] [place] [address] Care Team Providers Care Tie Puller Name Role Phone Yovana Flores MD Primary Care Provider Unavail able Encounter Details Date Type Department Care Team Description 05/26/2017 Pt. Non Urgent Medic al Question Physiatry - [address] [address] Taz Alves DO Social History Tobacco Use [...] Progress Notes * Rosibel Richard M.A. - 05/26/2017 9:55 AM EDTFrom: Leandro Fernandez To: Taz Alves DO Sent: 05/26/2017 9:43 AM EDT Subject: cancellation list Hi, I have a June [address] Alves. Could you put me on the cancellation list? Thank-you. Marcos documented in this encounter Plan of Treatment Not on file documented as of this encounter Visit Diagnoses Not on filedocumented in this encounter Care Teams Tie Puller Relationship Specialty Start Date End Date Yovana Flores MD PCP - General Internal Medicine 12/19/16 documented as of this encounter
[2025-01-28 12:31] LABS: Digoxin 1.1 ng/mL (0.8-2.0)
== END 2025-01-28 09:12 | disposition home or self-care (01) ==
LOC: HO.WFDLDS 09:11
PROVIDERS: Visit Provider Internal Medicine Cardiovascular Disease
DX: I48.92 Unspecified atrial flutter (principal)
CPT/HCPCS: 36415; 80162

== ENCOUNTER 2025-05-12 08:34 | Outpatient (REF) | payer MEDICARE, SELFPAY ==
--- OUTSIDE RECORDS SUMMARY | 2025-05-12 08:53 | XMS_ITS | Continuity of Care Document ---
Author Organization [facility] Address [address] [address] Insurance Providers Payer Plan Claims Address Claims Phone Policy Number Group Number Relation Employer Guarantor Name Guarantor Guarantor Address Guarantor Phone MCR (WNR) MCR (WNR) tel:[phone] [id number] Self Leandro Fernandez [address] [place] [address] [id number] MCR (WNR) MCR (WNR) [phone] [id number] 35 Self Leandro Fernandez [address] [place] [address] [id number] MCR (WNR) MCR (WNR) [facility] [address] tel:[phone] [id number] Self Leandro Fernandez [address] [place] [address] [id number] Problems Unknown Problems Results Test Result Date/Time Value / Unit Interp. Refere wye Range Comp. Metabolic Panel (14)[[id number]] Collected: 10/11/2024 05:11 PM Specimen Received: 10/11/2024 05:00 AM Source: [facility] Glucose [[id number]] 10/12/2024 05:36 AM 118 mg/dL H 70-99 mg/dL BUN [[id number]] 10/12/2024 05:37 AM 24 mg/dL 8-2 7 mg/dL Creatinine [659054] 10/12/2024 05:37 AM 1.01 mg/dL 0.76-1.27 mg/dL eGFR [194485] 10/12/2024 05:37 AM 76 mL/min/1.73 >59 mL/min/1.73 BUN/Creatinine Ratio [378734] 10/12/2024 05:37 AM 24 10-24 Sodium [137177] 10/12/2024 04:40 AM 142 mmol/L 134-144 mmol/L Potassium [305605] 10/12/2024 04:40 AM 5.0 mmol/L 3.5-5.2 mmol/L Chloride [586589] 10/12/2024 04:39 AM 104 mmol/L 96-106 mmol/L Carbon Dioxide, Total [157504] 10/12/2024 05:36 AM 22 mmol/L 20-29 mmol/L Calcium [205162] 10/12/2024 05:36 AM 9.7 mg/dL 8.6-10.2 mg/dL Protein, Total [453413] 10/12/2024 05:38 AM 7.4 g/dL 6.0-8.5 g/dL Albumin [314795] 10/12/2024 05:37 AM 4.4 g/dL 3.8-4.8 g/dL Globulin, Total [763002] 10/12/2024 05:38 AM 3.0 g/dL 1.5-4.5 g/dL Bilirubin, Total [908116] 10/12/2024 05:37 AM 0.7 mg/dL 0.0-1.2 mg/dL Alkaline Phosphatase [301718] 10/12/2024 05:37 AM 75 IU/L 44-121 IU/L AST (SGOT) [378274] 10/12/2024 05:37 AM 35 IU/L 0-40 IU/L ALT (SGPT) [479013] 10/12/2024 05:38 AM 22 IU/L 0-44 IU/L Lipid Panel[[id number]] Collected: 10/11/2024 05:11 PM Specimen Received: 10/11/2024 05:00 AM Source: [facility] Cholesterol, Total [[id number]] 10/12/2024 05:42 AM 169 mg/dL 100-199 mg/d L Triglycerides [941415] 10/12/2024 05:40 AM 75 mg/dL 0-149 mg/dL HDL Cholesterol [207546] 10/12/2024 05:40 AM 39 mg/dL L >39 mg/dL VLDL Cholesterol Antonio [182398] 10/12/2024 05:42 AM 14 mg/dL 5-40 mg/dL LDL Chol Calc ([facility]) [256775] 10/12/2024 05:42 AM 116 mg/dL H 0-99 mg/dL Hemoglobin A1c[093981] Collected: 10/11/2024 05:11 PM Specimen Received: 10/11/2024 05:00 AM Source: [facility] Hemoglobin A1c [[id number]] 10/12/2024 04:35 AM 6.4 % H 4.8-5.6 % . Prediabetes: 5.7 - 6.4 Kelli betes: >6.4 Glycemic control for adults with diabetes: 7.0 Allergies, adverse reactions, alerts No known allergies and adverse reactions Medications No administered medications reported Vital Signs No vital signs reported Social History No smoking Hx information available
[2025-05-12 11:51] LABS: Prostate Specific Antigen 2.23 ng/mL (<0.05-4.0)
== END 2025-05-12 08:35 | disposition home or self-care (01) ==
LOC: HO.WFDLDS 08:34
PROVIDERS: Visit Provider Urology
DX: R35.1 Nocturia (principal); Z12.5 Encounter for screening for malignant neoplasm of prostate
CPT/HCPCS: 36415; 84153

== ENCOUNTER 2025-05-19 08:52 | Outpatient (AMB) | payer MEDICARE, SELFPAY ==
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
== END 2025-05-19 09:15 | disposition home or self-care (01) ==
LOC: HO.HUSH 08:53
PROVIDERS: PCP Family Medicine; Visit Provider Urology
DX: R35.0 Frequency of micturition (principal); R35.1 Nocturia; N32.3 Diverticulum of bladder
CPT/HCPCS: 99213

== ENCOUNTER → 2025-05-19 08:52 | Outpatient (BNVA) | payer MEDICARE, SELFPAY | PROVIDERS: PCP Family Medicine; Visit Provider Urology | DX: R35.0 Frequency of micturition (principal); R35.1 Nocturia; N32.3 Diverticulum of bladder; Z98.890 Other specified postprocedural states | CPT/HCPCS: 51798; 99212 ==

== ENCOUNTER 2025-06-08 15:36 | Outpatient (AMB) | payer MEDICARE, SELFPAY ==
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
--- OUTSIDE RECORDS SUMMARY | 2025-06-08 15:43 | XMS_ITS | Continuity of Care Document ---
Author Organization [facility] Address [address] [address] Insurance Providers Payer Plan Claims Address Claims Phone Policy Number Group Number Relation Employer Guarantor Name Guarantor Guarantor Address Guarantor Phone MCR (WNR) MCR (WNR) tel:[phone] [id number] 35 Self Leandro Fernandez [address] [place] [address] [id number] MCR (WNR) MCR (WNR) [phone] [id number] 35 Self Leandro Fernandez [address] [place] [address] [id number] MCR (WNR) MCR (WNR) [facility];[address] [address] tel:[phone] [id number] Self Leandro Fernandez [address] [place] [address] [id number] Problems Unknown Problems Results Test Result Date/Time Value / Unit Interp. Refere ale Range Comp. Metabolic Panel (14)[[id number]] Collected: 10/11/2024 05:11 PM Specimen Received: 10/11/2024 05:00 AM Source: [facility] Glucose [[id number]] 10/12/2024 05:36 AM 118 mg/dL H 70-99 mg/dL BUN [[id number]] 10/12/2024 05:37 AM 24 mg/dL 8-2 7 mg/dL Creatinine [[id number]] 10/12/2024 05:37 AM 1.01 mg/dL 0.76-1.27 mg/dL eGFR [[id number]] 10/12/2024 05:37 AM 76 mL/min/1.73 >59 mL/min/1.73 BUN/Creatinine Ratio [094749] 10/12/2024 05:37 AM 24 10-24 Sodium [903536] 10/12/2024 04:40 AM 142 mmol/L 134-144 mmol/L Potassium [043525] 10/12/2024 04:40 AM 5.0 mmol/L 3.5-5.2 mmol/L Chloride [639479] 10/12/2024 04:39 AM 104 mmol/L 96-106 mmol/L Carbon Dioxide, Total [383546] 10/12/2024 05:36 AM 22 mmol/L 20-29 mmol/L Calcium [606782] 10/12/2024 05:36 AM 9.7 mg/dL 8.6-10.2 mg/dL Protein, Total [660160] 10/12/2024 05:38 AM 7.4 g/dL 6.0-8.5 g/dL Albumin [050323] 10/12/2024 05:37 AM 4.4 g/dL 3.8-4.8 g/dL Globulin, Total [991744] 10/12/2024 05:38 AM 3.0 g/dL 1.5-4.5 g/dL Bilirubin, Total [954610] 10/12/2024 05:37 AM 0.7 mg/dL 0.0-1.2 mg/dL Alkaline Phosphatase [642058] 10/12/2024 05:37 AM 75 IU/L 44-121 IU/L AST (SGOT) [[id number]] 10/12/2024 05:37 AM 35 IU/L 0-40 IU/L ALT (SGPT) [905588] 10/12/2024 05:38 AM 22 IU/L 0-44 IU/L Lipid Panel[[id number]] Collected: 10/11/2024 05:11 PM Specimen Received: 10/11/2024 05:00 AM Source: [facility] Cholesterol, Total [[id number]] 10/12/2024 05:42 AM 169 mg/dL 100-199 mg/d L Triglycerides [306734] 10/12/2024 05:40 AM 75 mg/dL 0-149 mg/dL HDL Cholesterol [955232] 10/12/2024 05:40 AM 39 mg/dL L >39 mg/dL VLDL Cholesterol Antonio [[id number]] 10/12/2024 05:42 AM 14 mg/dL 5-40 mg/dL LDL Chol Calc ([facility]) [[id number]] 10/12/2024 05:42 AM 116 mg/dL H 0-99 mg/dL Hemoglobin A1c[[id number]] Collected: 10/11/2024 05:11 PM Specimen Received: 10/11/2024 05:00 AM Source: [facility] Hemoglobin A1c [[id number]] 10/12/2024 04:35 AM 6.4 % H 4.8-5.6 % . Prediabetes: 5.7 - 6.4 Kelli betes: >6.4 Glycemic control for adults with diabetes: 7.0 Allergies, adverse reactions, alerts No known allergies and adverse reactions Medications No administered medications reported Vital Signs No vital signs reported Social History No smoking Hx information available
--- OUTSIDE RECORDS SUMMARY | 2025-06-08 15:43 | XMS_ITS | Continuity of Care Document ---
Author Organization [facility] Address [address] [address] Insurance Providers Payer Plan Claims Address Claims Phone Policy Number Group Number Relation Employer Guarantor Name Guarantor Guarantor Address Guarantor Phone MCR (WNR) MCR (WNR) tel:[phone] [id number] 35 Self Leandro Fernandez [address] [place] [address] [id number] MCR (WNR) MCR (WNR) [phone] [id number] 35 Self Leandro Fernandez [address] [place] [address] [id number] MCR (WNR) MCR (WNR) [facility];[address] [address] tel:[phone] [id number] Self Leandro Fernandez [address] [place] [address] [id number] Problems Unknown Problems Results Test Result Date/Time Value / Unit Interp. Refere aze Range Comp. Metabolic Panel (14)[[id number]] Collected: 10/11/2024 05:11 PM Specimen Received: 10/11/2024 05:00 AM Source: [facility] Glucose [[id number]] 10/12/2024 05:36 AM 118 mg/dL H 70-99 mg/dL BUN [[id number]] 10/12/2024 05:37 AM 24 mg/dL 8-2 7 mg/dL Creatinine [[id number]] 10/12/2024 05:37 AM 1.01 mg/dL 0.76-1.27 mg/dL eGFR [152378] 10/12/2024 05:37 AM 76 mL/min/1.73 >59 mL/min/1.73 BUN/Creatinine Ratio [737734] 10/12/2024 05:37 AM 24 10-24 Sodium [734187] 10/12/2024 04:40 AM 142 mmol/L 134-144 mmol/L Potassium [952873] 10/12/2024 04:40 AM 5.0 mmol/L 3.5-5.2 mmol/L Chloride [255310] 10/12/2024 04:39 AM 104 mmol/L 96-106 mmol/L Carbon Dioxide, Total [090486] 10/12/2024 05:36 AM 22 mmol/L 20-29 mmol/L Calcium [681837] 10/12/2024 05:36 AM 9.7 mg/dL 8.6-10.2 mg/dL Protein, Total [457823] 10/12/2024 05:38 AM 7.4 g/dL 6.0-8.5 g/dL Albumin [188398] 10/12/2024 05:37 AM 4.4 g/dL 3.8-4.8 g/dL Globulin, Total [[id number]] 10/12/2024 05:38 AM 3.0 g/dL 1.5-4.5 g/dL Bilirubin, Total [624587] 10/12/2024 05:37 AM 0.7 mg/dL 0.0-1.2 mg/dL Alkaline Phosphatase [562147] 10/12/2024 05:37 AM 75 IU/L 44-121 IU/L AST (SGOT) [563000] 10/12/2024 05:37 AM 35 IU/L 0-40 IU/L ALT (SGPT) [260891] 10/12/2024 05:38 AM 22 IU/L 0-44 IU/L Lipid Panel[[id number]] Collected: 10/11/2024 05:11 PM Specimen Received: 10/11/2024 05:00 AM Source: [facility] Cholesterol, Total [[id number]] 10/12/2024 05:42 AM 169 mg/dL 100-199 mg/d L Triglycerides [[id number]] 10/12/2024 05:40 AM 75 mg/dL 0-149 mg/dL HDL Cholesterol [[id number]] 10/12/2024 05:40 AM 39 mg/dL L >39 mg/dL VLDL Cholesterol Antonio [047466] 10/12/2024 05:42 AM 14 mg/dL 5-40 mg/dL LDL Chol Calc ([facility]) [[id number]] 10/12/2024 05:42 AM 116 mg/dL H 0-99 mg/dL Hemoglobin A1c[[id number]] Collected: 10/11/2024 05:11 PM Specimen Received: 10/11/2024 05:00 AM Source: [facility] Hemoglobin A1c [[id number]] 10/12/2024 04:35 AM 6.4 % H 4.8-5.6 % . Prediabetes: 5.7 - 6.4 Kelli betes: >6.4 Glycemic control for adults with diabetes: 7.0 Allergies, adverse reactions, alerts No known allergies and adverse reactions Medications No administered medications reported Vital Signs No vital signs reported Social History No smoking Hx information available
--- OUTSIDE RECORDS SUMMARY | 2025-06-08 15:43 | XMS_ITS | Clinical Summary ---
Author Organization [facility] Address [address] [place] [address] Care Team Providers Care Addiction Social Worker Name Role Phone Unavailable Primary Care Provider [...] file Leandro Fernandez Personal/Famil y Self 1945 [address] [place] [address]
[2025-06-08 15:44] VITALS: BP 130/68; PULSE 54; RESP 14; TEMP 36.6; O2SAT 97; BMI 23.2
== END 2025-06-08 16:03 | disposition home or self-care (01) ==
LOC: HO.HMCFM 15:37
PROVIDERS: PCP Family Medicine; Visit Provider Family Medicine
DX: M79.641 Pain in right hand (principal); M79.642 Pain in left hand; M25.559 Pain in unspecified hip; E78.00 Pure hypercholesterolemia, unspecified

== ENCOUNTER → 2025-06-08 15:36 | Outpatient (BNVA) | payer MEDICARE, SELFPAY | PROVIDERS: PCP Family Medicine; Visit Provider Family Medicine | DX: M79.642 Pain in left hand (principal); M79.641 Pain in right hand; M25.552 Pain in left hip; E78.00 Pure hypercholesterolemia, unspecified; D64.9 Anemia, unspecified | CPT/HCPCS: 96127; 99212 ==

== ENCOUNTER 2025-06-09 07:59 | Outpatient (REF) | payer MEDICARE, SELFPAY ==
--- OUTSIDE RECORDS SUMMARY | 2025-06-09 08:01 | XMS_ITS | Clinical Summary ---
Author Organization [facility] Address [address] [place] [address] Care Team Providers Care Level Vial Inside Grinder Name Role Phone Unavailable Primary Care Provider [...] file Leandro Fernandez Personal/Famil y Self 1945 [address] [place] [address]
[2025-06-09 11:07] LABS: MANUAL DIFF FLAG NO
[2025-06-09 11:14] LABS: Hematocrit 40.7 % (42.0-52.0); Hemoglobin 14.0 g/dl (14.0-18.0); Imm Gran Abs Auto 0.01 X10*3/uL (0.00-0.03); Imm Gran Pct Auto 0.2 % (0.0-0.4); Lymphocytes Absolute Auto 1.4 X10*3/uL (1.2-4.9); Mean Corpuscular HGB Conc 34.4 g/dl (31.0-36.0); Mean Corpuscular Hemoglobin 31.4 pg (27.0-33.0); Mean Corpuscular Volume 91.3 fL (80.0-98.0); NRBC Abs Auto 0.000 X10*3/uL (0.0-0.012); NRBC Pct Auto 0.0 /100WBC (0.0-0.2); Platelet Count 169 X10*3/uL (160-400); Red Blood Count 4.46 X10*6/uL (4.60-5.80); White Blood Count 4.2 X10*3/uL (4.8-10.8)
[2025-06-09 11:25] LABS: Alanine Aminotransferase 26 U/L (0-40); Albumin Level 4.4 g/dL (3.5-5.0); Alkaline Phosphatase 62 U/L (39-117); Anion Gap 11 (12-20); Aspartate Amino Transferase 42 U/L (5-37); Blood Urea Nitrogen 26 mg/dL (9-16); Calcium 9.6 mg/dL (8.4-10.2); Carbon Dioxide 26 mmol/L (22-29); Chloride 108 mmol/L (96-108); Cholesterol 190 mg/dL (<200); Estimated Glomerular Filt Rate > 60; HDL Cholesterol 48 mg/dL (>40); Potassium 4.4 mmol/L (3.3-5.1); Sodium 141 mmol/L (135-145); Total Protein 7.7 g/dL (6.5-8.0); Triglycerides 68 mg/dL (<150)
== END 2025-06-09 08:00 | disposition home or self-care (01) ==
LOC: HO.WFDLDS 07:59
PROVIDERS: Visit Provider Family Medicine
DX: Z00.00 Encounter for general adult medical examination without abnormal findings (principal); D64.9 Anemia, unspecified; E78.00 Pure hypercholesterolemia, unspecified
CPT/HCPCS: 36415; 80053; 80061; 85025; 85652; 86141; 86431

== ENCOUNTER 2025-06-10 13:09 | Outpatient (REF) | payer MEDICARE, SELFPAY ==
--- NOTE | ~2025-06-10 | XR_ITS ---
EXAMINATION: XR HIP, LEFT CLINICAL INFORMATION: M25.559 - Pain in unspecified hip COMPARISON: 02/11/2022. TECHNIQUE: Two views of the left hip. FINDINGS: No fracture, dislocation, or suspicious bone lesion. There is normal alignment. There are moderate osteoarthritic changes of the left hip joint, with moderate joint space loss, subchondral sclerosis and cystic changes, and multiple subcapital and marginal acetabular osteophytes. This has minimally progressed since 2021 exam. There is mild calcific enthesopathy of the greater trochanter, slightly worsened. There are vascular calcifications in the soft tissues. XR/XR hip LT min 2V IMPRESSION: 1. No acute bony abnormalities. 2. Moderate left hip joint osteoarthrosis, mildly progressed from 2021. Electronically signed by: Jose Madrigal MD 06/10/2025 01:32 PM EDT
--- NOTE | ~2025-06-10 | XR_ITS ---
Exam: 3 view bilateral hands TECHNIQUE: PA, lateral, and ball-catcher's view upper extremity, bilateral hands INDICATION: Right hand pain FINDINGS: RIGHT HAND: There is joint space narrowing and osteophytes involving DIP and PIP joints of the hand, first and second metacarpophalangeal joints, first carpal metacarpal joint, as well as the IP and MCP joint of the thumb. On the ball-catcher's view, there is concavity along the dorsal and neck junction of the third metacarpal. LEFT HAND: Small marginal ossified is present involving the DIP and PIP joints of the second digit, the IP and MCP joint of thumb, the first carpal metacarpal joint, and the third metacarpophalangeal joint with severe joint space narrowing. There is also narrowing and sclerosis of the scaphoid trapezium trapezoid joint with subchondral cystic change in the distal scaphoid. XR/XR Hand Bilat min 3v Impression: Degenerative changes in both hands and wrists consistent with osteoarthritis. Possible chronic erosion involving the dorsal aspect of the right third metacarpal head neck junction. Electronically signed by: Osorio Kaur MD 06/10/2025 02:36 PM EDT
--- OUTSIDE RECORDS SUMMARY | 2025-06-10 13:12 | XMS_ITS | Clinical Summary ---
Author Organization [facility] Address [address] [place] [address] Care Team Providers Care Delivery Man Name Role Phone Unavailable Primary Care Provider [...] file Leandro Fernandez Personal/Famil y Self 1945 [address] [place] [address]
== END 2025-06-10 13:10 | disposition home or self-care (01) ==
LOC: HO.XRAY 13:09
PROVIDERS: PCP Family Medicine; Visit Provider Family Medicine
DX: M25.552 Pain in left hip (principal); M79.641 Pain in right hand; M79.642 Pain in left hand
CPT/HCPCS: 73130; 73502

== ENCOUNTER → 2025-06-10 13:13 | Outpatient (BNV) | payer MEDICARE, SELFPAY | PROVIDERS: PCP Family Medicine; Visit Provider Radiology Diagnostic Radiology | DX: M16.12 Unilateral primary osteoarthritis, left hip (principal); M19.041 Primary osteoarthritis, right hand; M19.042 Primary osteoarthritis, left hand | CPT/HCPCS: 73130; 73502 ==

== ENCOUNTER 2025-06-24 13:00 | Outpatient (RCR) | payer MEDICARE, SELFPAY ==
--- NOTE | 2025-06-15 14:48 | MHC.OT.EP ---
[address] [phone] Occupational Therapy Plan of Care Patient Name: Leandro Saez Date of Evaluation: 06/15/25 Diagnosis: B/L HAND PAIN Pain Location: 2-3/10 DORSAL ASPECT OF L HAND PAINFREE AT REST Pain Score: 0-3/10 Pain Scale Used: Numeric (0 - 10) Aggravating Factors: PROLONGED GRASPING/ GOLFING Alleviating Factors: USING COMPRESSION GLOVES, RESTING, TYLENOL, PROVIDED WITH SHORT COURSE OF CELECOXIB BY MD Assessment: MR SAEZ REPORTS A SEVEN MONTH HISTORY OF WORSENING PAIN IN B/L HANDS. XRAYS SHOW OA IN B/L HANDS AND WRISTS. HE STATES THAT HIS PAIN IS WORSE IN THE WINTER MONTHS AND THE FIRST FEW HOLES OF GOLF. DENIES DIFFICULTIES WITH ADLs, USING COMPENSATORY STRATEGIES FOR MOST IADLs. AN 18% LIMITATION IS REPORTED PER THE QUICK DASH ASSESSMENT. Pt WOULD BENEFIT FROM SHORT COURSE OF ADDITIONAL OT TO EDUCATE ON JOINT PROTECTION STRATEGIES, PACING, PAIN MANAGEMENT, AND IADL RETRAINING. Frequency and Duration: The patient will be seen 1X/WEEK FOR 3 WEEKS Short Term Goals: IND HEP IND USE OF COMPRESSION GLOVES TO EXPLORE HEAT MODALITIES, INCLUDING HOME PRAFFIN UNIT IND JT PROTECTION STRATEGIES, ACTIVITY MODIFICATIONS FOR IADLs Snf Goals: SEE ABOVE Treatment Plan: Therapeutic Exercise Therapeutic Activity Home Exercise Program Splinting Neuro Re-ed Patient Education Desensitization/Sensory Re-ed Edema Control ADL Training Ultrasound NMES Iontophoresis Paraffin Fluidotherapy MHP Cold Packs Joint Mobilization Soft Tissue Mobilization Kinesiotaping Other (see comments) Electronically Signed By: ISSA LEBLANC OTR/L Please Sign and return to therapist. Thank you once again for your referral.
--- NOTE | 2025-08-19 10:35 | MHC.OT.DC ---
[facility] Office [address] [facility] [phone] F: [phone] F: [phone] Occupational Therapy Discharge Note Patient Name: Leandro Saez Provider: Phillip Reid Diagnosis: B/L HAND PAIN Date of Evaluation: 06/15/25 Date of Discharge: 08/19/25 Treatments to Date: 2 Cancellations to Date: 0 No Shows to Date: 0 Discharge Status: Achieved Goals Improved Function Independent with HEP Patient Elected to Stop Discharge Summary: MR SAEZ WAS SEEN FOR A SHORT COURSE OF OT. AT TIME OF D/C HE REPORTED BEING PAINFREE WITH OCCASIONAL DISCOMFORT REPORTED IN THE EVENING OR BEFORE/AFTER GOLFING. HE HAS PURCHASED A HOME PARAFFIN UNIT AND WEARING COMPRESSION GLOVES. ENGAGED IN EDUCATION ON ACTIVITY MODIFICATIONS AND JOINT PROTECTION STRATEGIES. HE WILL TRANSITION TO A HOME BASED PROGRAM AT THIS TIME. D/C OT. Electronically Signed By: ISSA LEBLANC OTR/L Reviewed/agree with student documentation: N/A Therapist: Please Sign and return to therapist, thank you for your referral.
== END 2025-08-19 10:35 | disposition home or self-care (01) ==
LOC: HO.OT 13:00
PROVIDERS: PCP Family Medicine; Visit Provider Family Medicine
DX: M79.641 Pain in right hand (principal); M79.642 Pain in left hand
CPT/HCPCS: 97110; 97140; 97165

== ENCOUNTER 2025-07-05 15:25 | Outpatient (AMB) | payer MEDICARE, SELFPAY ==
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
[2025-07-05 15:33] VITALS: BP 130/68; PULSE 54; RESP 15; TEMP 37; O2SAT 96; BMI 23.3
--- OUTSIDE RECORDS SUMMARY | 2025-07-05 16:15 | XMS_ITS | Clinical Summary ---
Author Organization [facility] Address [address] [place] [address] Care Team Providers Care Library Specialist Name Role Phone Unavailable Primary Care Provider [...] file Leandro Fernandez Personal/Famil y Self 1945 [address] [place] [address]
--- OUTSIDE RECORDS SUMMARY | 2025-07-05 16:15 | XMS_ITS | Encounter Summary ---
Author Organization [facility] Address [address] [place] [address] Care Team Providers Care Immunohematologist Name Role Phone Yovana Flores MD Primary Care Provider Unavail able Encounter Details Date Type Department Care Team Description 06/27/2021 Pt. Non Urgent Medic al Question Physiatry - [address] [address] Ambrocio Sanford PA-C Social History Tobacco Use Types Packs/Day Years Used Date Smoking Tobacco: Former Cigarettes 1 30 Smokeless Tobacco: Never Comments:1990 Alcohol Use Standard Drinks/Week Comments Yes 0 (1 standard drink = 0.6 oz pur e alcohol) once in a while. No heavy Sex Assigned at Date Recorded Not on file COVID-19 Exposure Response Date Recorded In the last month, have you been in contact with someone who was confirmed or suspected to have Coronavirus / COVID-19? No / Unsure 06/26/2021 8:43 AM EDT documented as of this encounter Plan of Treatment Not on file documented as of this encounter Visit Diagnoses Not on filedocumented in this encounter Care Teams Immunohematologist Relationship Specialty Start Date End Date Yovana Flores MD PCP - General Internal Medicine 12/19/16 documented as of this encounter
== END 2025-07-05 16:06 | disposition home or self-care (01) ==
LOC: HO.HMCFM 15:26
PROVIDERS: PCP Family Medicine; Visit Provider Family Medicine
DX: M25.559 Pain in unspecified hip (principal); M79.641 Pain in right hand; M79.642 Pain in left hand; R73.03 Prediabetes; I10 Essential (primary) hypertension

== ENCOUNTER → 2025-07-05 15:25 | Outpatient (BNVA) | payer MEDICARE, SELFPAY | PROVIDERS: PCP Family Medicine; Visit Provider Family Medicine | DX: Z00.00 Encounter for general adult medical examination without abnormal findings (principal); M79.642 Pain in left hand; M25.552 Pain in left hip; M79.641 Pain in right hand; R73.02 Impaired glucose tolerance (oral); I10 Essential (primary) hypertension | CPT/HCPCS: 83036; 99212 ==

== ENCOUNTER 2025-07-18 15:00 | Outpatient (RCR) | payer MEDICARE, SELFPAY ==
[2025-07-01 08:53] VITALS: BP 120/56; PULSE 52
--- NOTE | 2025-07-01 09:40 | MHC.PT.EP ---
[facility] [place] Office [place] Office [place] Office [address] [phone] F: [phone] F: [phone] F: [phone] F: [phone] Physical Therapy Plan of Care Date of Evaluation: 07/01/25 Date of Surgery: NA Diagnosis: Hip pain, L hip pain Assessment: Leandro is a 80 year old male who is referred to PT for pain in L hip . He reports of having sudden onset of L hip pain about 5 months back. He denies any trauma or falls. His pain has gotten worse progressively with time. On PT examination he presents with TTP over L hip flexor, L piriformis, 8/10 pain with standing and walking for 15 minutes, 0/10 pain at rest, decreased L hip ROM, decreased L LE strength, altered posture, and gait. He is independent with all ADLS but has pain with them and modifies them with seated rest breaks. He enjoys riding his trike and golfing but has not been able to due to pain. He would benefit from skilled PT to address the aforementioned impairments and improve tolerance to functional activities. Frequency and Duration: The patient will be seen 2/week for 5 weeks Short Term Goals: 1. Pt will have 50% decrease in pain which will enable him to walk for 15 minutes with a pain no more than 4/10 in 2 weeks 2. Pt will be able to move his hip through full plane of motion with a pain no more than 2/10 pain which will enable him to negotiate stairs without pain in 3 weeks Scenic Arts Supervisor Goals: 1. Pt will demonstrate an increase in muscle strength by 1 grade which will enable him to tolerate standing and walking for ADLS without rest breaks in 5 weeks 2. Pt will be independent with all HEP for symptom management and maintenance following d/c in 5 weeks Treatment Plan: Modalities to reduce pain, spasms and effusion. Manual therapy to restore motion and function. Therapeutic exercise to improve strength and flexibility. Neuromuscular re-education for posture and balance. Therapeutic activities to return to functional activities of daily living. Electronically signed by: Elyssa Khan PT DPT Please sign and return to therapist. Thank you for your referral.
--- NOTE | 2025-08-08 13:42 | MHC.PT.DC ---
[facility] [place] [facility] [place] [facility] [place] Office [address] Rol[address] Chavez [address] [phone] F: [phone] F: [phone] F: [phone] F: [phone] Physical Therapy Discharge Report Diagnosis: Hip pain, L hip pain Date of Surgery: NA Date of Evaluation: 07/01/25 Date of Discharge: 08/08/25 Treatments to Date: 5 Cancellations to Date: 0 No Shows to Date: 0 Discharge Status: Achieved Goals Improved Function Independent with HEP Discharge Summary: Leandro attended 5 PT visits and made improvements with PT. He is independent with all HEP and he requested d/c today stating he can manage his symptoms with exercises at home. He is therefore being d/c from PT today. I reviewed all HEP with him again. No adverse response noted to any exercise. Electronically signed by: Elyssa Khan, PT DPT Please sign and return to therapist. Thank you for your referral.
== END 2025-08-08 13:43 | disposition home or self-care (01) ==
LOC: HO.PT 15:00
PROVIDERS: PCP Family Medicine; Visit Provider Family Medicine
DX: M25.552 Pain in left hip (principal)
CPT/HCPCS: 97110; 97140; 97161; 97530

== ENCOUNTER 2025-07-20 08:55 | Outpatient (REF) | payer MEDICARE, SELFPAY ==
--- OUTSIDE RECORDS SUMMARY | 2025-07-20 09:23 | XMS_ITS | Encounter Summary ---
Author Organization [facility] Address [address] [place] [address] Care Team Providers Care Broach Setter Name Role Phone Yovana Flores MD Primary Care Provider Unavail able Encounter Details Date Type Department Care Team Description 06/10/2017 Pt. Non Urgent Medic al Question Adult Medicine [address] [address] Yovana Flores MD Social History Tobacco Use Types Packs/Day Years Used Date Smoking Tobacco: Former Cigarettes 1 30 Smokeless Tobacco: Never Comments:1990 Alcohol Use Standard Drinks/Week Comments Yes 0 (1 standard drink = 0.6 oz pur e alcohol) once in a while. No heavy Sex Assigned at Date Recorded Not on file documented as of this encounter Progress Notes * Rose Agudelo M.A. - 06/10/2017 1:10 PM EDTFrom: Leandro Fernandez To: Yovana Ibrahim MD Sent: 06/10/2017 1:01 PM EDT Subject: orthopedics referral Hi, I still haven't heard from the orthopedics referral. It has been 6 days. Thanks Marcos documented in this encounter Plan of Treatment Not on file documented as of this encounter Visit Diagnoses Not on filedocumented in this encounter Care Teams Broach Setter Relationship Specialty Start Date End Date Yovana Flores MD PCP - General Internal Medicine 12/19/16 documented as of this encounter
--- OUTSIDE RECORDS SUMMARY | 2025-07-20 09:23 | XMS_ITS | Clinical Summary ---
Author Organization [facility] Address [address] [place] [address] Care Team Providers Care Boat Engine Mechanic Name Role Phone Yovana Flores MD Primary [...] Hx Diabetes Negative Hx Hypertension Negative Hx [place] Negative Hx Mental Disorder Negative Hx Sleep [...] 80 06/26/2021 8:56 AM EDT Temperature 35.8 C (96.4 F) 06/26/2021 8:56 AM EDT Respiratory Rate 18 02/07/2020 8:40 AM EDT [...] STO OL CARD 01/25/2021 01/26/2020, 09/21/2019, 09/26/2009 BMI CHECK/ADVISE 11/24/2024 01/31/2020, 07/2020, 11/20/2018, Additional history exists CHOLESTEROL SCREENING 02/06/2025 02/07/2020 , 02/11/2018, 12/27/2016, Additional history exists INFLUENZA (#1) 2025 11/20/2018 (Exte rnal Completion), 02/09/2018 (Refused), 12/19/2016, Additional history exists DTAP/TDAP/TD (3 - Td or Tdap) 11/28/2026 (External Completion), 06/07/2009 HEPATITIS C SCREENING Completed 03/09/2014 PNEUMOCOCCAL VACCINE Completed 12/19/2016, 08/20/20 11 Care Teams Boat Engine Mechanic Relationship Specialty Start Date End Date Yovana Flores MD PCP - General Internal Medicine 12/19/16
--- OUTSIDE RECORDS SUMMARY | 2025-07-20 09:23 | XMS_ITS | Clinical Summary ---
Author Organization [facility] Address [address] [place] [address] Care Team Providers Care Nc Machinist Name Role Phone Unavailable Primary Care Provider [...] file Leandro Fernandez Personal/Famil y Self 1945 [address] [place] [address]
--- OUTSIDE RECORDS SUMMARY | 2025-07-20 09:23 | XMS_ITS | Encounter Summary ---
Author Organization [facility] Address [address] [place] [address] Care Team Providers Care Sanding Machine Tender Automatic Name Role Phone Alex Rico MD Primary Care Provider Unavailabl e Yovana Flores MD Primary Care Provider Unavail able Encounter Details Date Type Department Care Team Description 04/05/2015 Pt. Non Urgent Medic al Question Adult Medicine [address] [address] Alex Rico MD Social History Tobacco Use [...] to see her again until I see Antenna Design Engineer. Thanks Marcos documented in this encounter Plan of Treatment Not on file documented as of this encounter Visit Diagnoses Not on filedocumented in this encounter Care Teams Sanding Machine Tender Automatic Relationship Specialty Start Date End Date Alex Rico MD PCP - General 05/30/09 12/18/16 Yovana Flores MD PCP - General Internal Medicine 12/19/16 documented as of this encounter
--- OUTSIDE RECORDS SUMMARY | 2025-07-20 09:23 | XMS_ITS | Encounter Summary ---
Author Organization [facility] Address [address] [place] [address] Care Team Providers Care Communications Professional Name Role Phone Yovana Flores MD Primary Care Provider Unavail able Encounter Details Date Type Department Care Team Description 08/09/2017 Release of Information Medical Records [address] [place] [id number] Abstract, Provider Social History Tobacco Use Types [...] on filedocumented in this encounter Care Teams Communications Professional Relationship Specialty Start Date End Date Yovana Flores MD PCP - General Internal Medicine 12/19/16 documented as of this encounter
--- OUTSIDE RECORDS SUMMARY | 2025-07-20 09:23 | XMS_ITS | Continuity of Care Document ---
Author Organization [facility] Address [address] [address] Insurance Providers Payer Plan Claims Address Claims Phone Policy Number Group Number Relation Employer Guarantor Name Guarantor Guarantor Address Guarantor Phone MCR (WNR) MCR (WNR) tel:[phone] [id number] Self Leandro Fernandez [address] [place] [address] [id number] MCR (WNR) MCR (WNR) [phone] [id number] Self Leandro Fernandez [address] [place] [address] [id number] MCR (WNR) MCR (WNR) [employer];[address] [address] tel:[phone] [id number] Self Leandro Fernandez [address] [place] [address] [id number] Problems Unknown Problems Results Test Result Date/Time Value / Unit Interp. Refere nme Range Comp. Metabolic Panel (14)[3 [id number]] Collected: 10/11/2024 05:11 PM Specimen Received: 10/11/2024 05:00 AM Source: [facility] Glucose [[id number]] 10/12/2024 05:36 AM 118 mg/dL H 70-99 mg/dL BUN [[id number]] 10/12/2024 05:37 AM 24 mg/dL 8-2 7 mg/dL Creatinine [200200] 10/12/2024 05:37 AM 1.01 mg/dL 0.76-1.27 mg/dL eGFR [[id number]] 10/12/2024 05:37 AM 76 mL/min/1.73 >59 mL/min/1.73 BUN/Creatinine Ratio [230152] 10/12/2024 05:37 AM 24 10-24 Sodium [111608] 10/12/2024 04:40 AM 142 mmol/L 134-144 mmol/L Potassium [803126] 10/12/2024 04:40 AM 5.0 mmol/L 3.5-5.2 mmol/L Chloride [[id number]] 10/12/2024 04:39 AM 104 mmol/L 96-106 mmol/L Carbon Dioxide, Total [220731] 10/12/2024 05:36 AM 22 mmol/L 20-29 mmol/L Calcium [103498] 10/12/2024 05:36 AM 9.7 mg/dL 8.6-10.2 mg/dL Protein, Total [321021] 10/12/2024 05:38 AM 7.4 g/dL 6.0-8.5 g/dL Albumin [185462] 10/12/2024 05:37 AM 4.4 g/dL 3.8-4.8 g/dL Globulin, Total [062249] 10/12/2024 05:38 AM 3.0 g/dL 1.5-4.5 g/dL Bilirubin, Total [640282] 10/12/2024 05:37 AM 0.7 mg/dL 0.0-1.2 mg/dL Alkaline Phosphatase [496441] 10/12/2024 05:37 AM 75 IU/L 44-121 IU/L AST (SGOT) [308184] 10/12/2024 05:37 AM 35 IU/L 0-40 IU/L ALT (SGPT) [987586] 10/12/2024 05:38 AM 22 IU/L 0-44 IU/L Lipid Panel[[id number]] Collected: 10/11/2024 05:11 PM Specimen Received: 10/11/2024 05:00 AM Source: [facility] Cholesterol, Total [[id number]] 10/12/2024 05:42 AM 169 mg/dL 100-199 mg/d L Triglycerides [756692] 10/12/2024 05:40 AM 75 mg/dL 0-149 mg/dL HDL Cholesterol [[id number]] 10/12/2024 05:40 AM 39 mg/dL L >39 mg/dL VLDL Cholesterol Antonio [461530] 10/12/2024 05:42 AM 14 mg/dL 5-40 mg/dL LDL Chol Calc ([facility]) [[id number]] 10/12/2024 05:42 AM 116 mg/dL H 0-99 mg/dL Hemoglobin A1c[[id number]] Collected: 10/11/2024 05:11 PM Specimen Received: 10/11/2024 05:00 AM Source: [facility] Hemoglobin A1c [[id number]] 10/12/2024 04:35 AM 6.4 % H 4.8-5.6 % . Prediabetes: 5.7 - 6.4 Kelli betes: >6.4 Glycemic control for adults with diabetes: 7.0 Allergies, adverse reactions, alerts No known allergies and adverse reactions Medications No administered medications reported Vital Signs No vital signs reported Social History No smoking Hx information available
--- OUTSIDE RECORDS SUMMARY | 2025-07-20 09:23 | XMS_ITS | Encounter Summary ---
Author Organization [facility] Address [address] [place] [address] Care Team Providers Care Inductor Tester Name Role Phone Name, Alex SOUZA Primary Care Provider Unavailabl e Yovana Flores MD Primary Care Provider Unavail able Encounter Details Date Type Department Care Team Description 05/03/2014 Genetic Technologist Report Medical Records [address] [place] [id number] Mackenzie Broderick MD Social History Tobacco Use [...] on filedocumented in this encounter Care Teams Inductor Tester Relationship Specialty Start Date End Date Name, MD Alex PCP - General 05/30/09 12/18/16 Yovana Flores MD PCP - General Internal Medicine 12/19/16 documented as of this encounter
--- OUTSIDE RECORDS SUMMARY | 2025-07-20 09:23 | XMS_ITS | Encounter Summary ---
Author Organization [facility] Address [address] [place] [address] Care Team Providers Care Health Type Technician Name Role Phone Yovana Flores MD Primary Care Provider Unavail able Encounter Details Date Type Department Care Team Description 02/12/2018 Orders Only Adult Medicine [address] [address] Yovana Flores MD Elevated fasting glucose (Primary Dx) Social History Tobacco Use Types Packs/Day Years [...] on file documented as of this encounter Results * HEMOGLOBIN A1C (02/12/2018 8:12 AM EDT) Glycosylated Hemoglobin A1C 5.7 4.0 - 6.0 % 02/12/2018 9:28 AM EDT [facility] Comment: HbA1C VALUES MAY NOT ACCURATELY REFLECT MEAN BLOOD GLUCOSE IN PATIENTS WITH HEMOGLOBIN VARIANTS SUCH HbF, HbS. 02/12/2018 8:12 AM EDT 02/12/2018 8:13 AM EDT Yovana Flores MD [facility] [address] documented in this encounter Visit Diagnoses Diagnosis Elevated fasting glucose- Primary Impaired fasting glucose documented in this encounter Care Teams Health Type Technician Relationship Specialty Start Date End Date Yovana Flores MD PCP - General Internal Medicine 12/19/16 documented as of this encounter
--- OUTSIDE RECORDS SUMMARY | 2025-07-20 09:23 | XMS_ITS | Encounter Summary ---
Author Organization [facility] Address [address] [place] [address] Care Team Providers Care Technical Buyer Name Role Phone Name, Alex SOUZA Primary Care Provider Unavailabl e Yovana Flores MD Primary Care Provider Unavail able Encounter Details Date Type Department Care Team Description 08/15/2014 Yarn Tester Report Medical Records [address] [place] [id number] Mackenzie Broderick MD Social History Tobacco Use [...] on filedocumented in this encounter Care Teams Technical Buyer Relationship Specialty Start Date End Date Name, MD Alex PCP - General 05/30/09 12/18/16 Yovana Flores MD PCP - General Internal Medicine 12/19/16 documented as of this encounter
--- OUTSIDE RECORDS SUMMARY | 2025-07-20 09:23 | XMS_ITS | Encounter Summary ---
Author Organization [facility] Address [address] [place] [address] Care Team Providers Care Shower Enclosure Installer Name Role Phone Yovana Flores MD Primary Care Provider Unavail able Reason for Visit * Reason Onset Date Comments injection 08/07/2021 Encounter Details Date Type Department Care Team Description 08/07/2021 Telephone Physiatry - [place] [address] [place] [address] [phone] Ambrocio Sanford PA-C injection Social History Tobacco [...] on filedocumented in this encounter Care Teams Shower Enclosure Installer Relationship Specialty Start Date End Date Yovana Flores MD PCP - General Internal Medicine 12/19/16 documented as of this encounter
--- OUTSIDE RECORDS SUMMARY | 2025-07-20 09:23 | XMS_ITS | Encounter Summary ---
Author Organization [facility] Address [address] [place] [address] Care Team Providers Care President Practicing Urologist Name Role Phone Name, Alex SOUZA Primary Care Provider Unavailabl e Yovana Flores MD Primary Care Provider Unavail able Encounter Details Date Type Department Care Team Description 06/13/2014 Cadastral Surveyor Report Medical Records [address] [place] [id number] Mackenzie Broderick MD Social History Tobacco Use [...] on filedocumented in this encounter Care Teams President Practicing Urologist Relationship Specialty Start Date End Date Name, MD Alex PCP - General 05/30/09 12/18/16 Yovana Flores MD PCP - General Internal Medicine 12/19/16 documented as of this encounter
--- OUTSIDE RECORDS SUMMARY | 2025-07-20 09:23 | XMS_ITS | Encounter Summary ---
Author Organization [facility] Address [address] [place] [address] Care Team Providers Care Credit Verification Clerk Name Role Phone Yovana Flores MD Primary Care Provider Unavail able Encounter Details Date Type Department Care Team Description 06/27/2021 Pt. Non Urgent Medic al Question Physiatry - [address] [address] Ambrocio Sanford PA-C Social History Tobacco Use [...] on filedocumented in this encounter Care Teams Credit Verification Clerk Relationship Specialty Start Date End Date Yovana Flores MD PCP - General Internal Medicine 12/19/16 documented as of this encounter
--- OUTSIDE RECORDS SUMMARY | 2025-07-20 09:23 | XMS_ITS | Encounter Summary ---
Author Organization [facility] Address [address] [place] [address] Care Team Providers Care Blending Machine Operator Name Role Phone Yovana Flores MD Primary Care Provider Unavail able Encounter Details Date Type Department Care Team Description 01/28/2020 Orders Only Medical Records [address] [place] [address] Amee Wolfe MD [address] [place], [place] [id number] Social History Tobacco Use Types Packs/Day Years [...] Certified Gastroenterology and Internal Medicine Transplant Hepatology [facility] documented in this encounter Plan of Treatment Not on file documented as of this encounter Procedures Procedure Name Priority Date/Time Associated Diagnosis Comments OUTSIDE PATHOLOGY Routine 01/26/2020 documented in this encounter Results * OUTSIDE PATHOLOGY (01/26/2020) H Erwin Wolfe MD OUTSIDE LAB documented in this encounter Visit Diagnoses Not on filedocumented in this encounter Care Teams Blending Machine Operator Relationship Specialty Start Date End Date Yovana Flores MD PCP - General Internal Medicine 12/19/16 documented as of this encounter
[2025-07-20 11:05] LABS: MANUAL DIFF FLAG NO
[2025-07-20 11:10] LABS: Hematocrit 41.8 % (42.0-52.0); Hemoglobin 14.5 g/dl (14.0-18.0); Imm Gran Abs Auto 0.01 X10*3/uL (0.00-0.03); Imm Gran Pct Auto 0.2 % (0.0-0.4); Lymphocytes Absolute Auto 1.6 X10*3/uL (1.2-4.9); Mean Corpuscular HGB Conc 34.7 g/dl (31.0-36.0); Mean Corpuscular Hemoglobin 31.9 pg (27.0-33.0); Mean Corpuscular Volume 92.1 fL (80.0-98.0); NRBC Abs Auto 0.000 X10*3/uL (0.0-0.012); NRBC Pct Auto 0.0 /100WBC (0.0-0.2); Platelet Count 156 X10*3/uL (160-400); Red Blood Count 4.54 X10*6/uL (4.60-5.80); White Blood Count 4.1 X10*3/uL (4.8-10.8)
[2025-07-20 11:45] LABS: Alanine Aminotransferase 27 U/L (0-40); Albumin Level 4.6 g/dL (3.5-5.0); Alkaline Phosphatase 56 U/L (39-117); Anion Gap 12 (12-20); Aspartate Amino Transferase 43 U/L (5-37); Blood Urea Nitrogen 27 mg/dL (9-16); Calcium 9.8 mg/dL (8.4-10.2); Carbon Dioxide 27 mmol/L (22-29); Chloride 105 mmol/L (96-108); Cholesterol 200 mg/dL (<200); Estimated Glomerular Filt Rate > 60; HDL Cholesterol 44 mg/dL (>40); Potassium 4.7 mmol/L (3.3-5.1); Sodium 139 mmol/L (135-145); Total Protein 7.7 g/dL (6.5-8.0); Triglycerides 75 mg/dL (<150)
[2025-07-20 11:52] LABS: Prostate Specific Antigen 2.40 ng/mL (<0.05-4.0)
== END 2025-07-20 08:56 | disposition home or self-care (01) ==
LOC: HO.WFDLDS 08:55
PROVIDERS: Urology; Visit Provider Family Medicine
DX: Z00.00 Encounter for general adult medical examination without abnormal findings (principal); Z12.5 Encounter for screening for malignant neoplasm of prostate; R35.1 Nocturia; Z13.29 Encounter for screening for other suspected endocrine disorder; Z13.6 Encounter for screening for cardiovascular disorders
CPT/HCPCS: 36415; 80053; 80061; 84153; 84443; 85025

== ENCOUNTER 2025-07-28 09:44 | Outpatient (AMB) | payer MEDICARE, SELFPAY ==
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
[2025-07-28 09:52] VITALS: BP 132/63; PULSE 60; RESP 16; TEMP 36.4; O2SAT 98; BMI 23.7
--- OUTSIDE RECORDS SUMMARY | 2025-07-28 10:39 | XMS_ITS | Clinical Summary ---
Author Organization [facility] Address [address] [place] [address] Care Team Providers Care Food Quality Technician Name Role Phone Unavailable Primary Care Provider [...] file Leandro Fernandez Personal/Famil y Self 1945 [address] [place] [address]
--- OUTSIDE RECORDS SUMMARY | 2025-07-28 10:39 | XMS_ITS | Continuity of Care Document ---
Author Organization [facility] Address [address] [address] Insurance Providers Payer Plan Claims Address Claims Phone Policy Number Group Number Relation Employer Guarantor Name Guarantor Guarantor Address Guarantor Phone MCR (WNR) MCR (WNR) tel:[phone] [id number] Self Leandro Fernandez [address] [place] [address] [id number] MCR (WNR) MCR (WNR) [phone] [id number] Self Leandro Fernandez [address] [place] [address] [id number] MCR (WNR) MCR (WNR) [facility];[address] [address] tel:[phone] [id number] [id number] Self Leandro Fernandez [address] [place] [address] [id number] Problems Unknown Problems Results Test Result Date/Time Value / Unit Interp. Refere wve Range Comp. Metabolic Panel (14)[3 [id number]] Collected: 10/11/2024 05:11 PM Specimen Received: 10/11/2024 05:00 AM Source: [facility] Glucose [[id number]] 10/12/2024 05:36 AM 118 mg/dL H 70-99 mg/dL BUN [[id number]] 10/12/2024 05:37 AM 24 mg/dL 8-2 7 mg/dL Creatinine [[id number]] 10/12/2024 05:37 AM 1.01 mg/dL 0.76-1.27 mg/dL eGFR [[id number]] 10/12/2024 05:37 AM 76 mL/min/1.73 >59 mL/min/1.73 BUN/Creatinine Ratio [[id number]] 10/12/2024 05:37 AM 24 10-24 Sodium [003486] 10/12/2024 04:40 AM 142 mmol/L 134-144 mmol/L Potassium [725624] 10/12/2024 04:40 AM 5.0 mmol/L 3.5-5.2 mmol/L Chloride [[id number]] 10/12/2024 04:39 AM 104 mmol/L 96-106 mmol/L Carbon Dioxide, Total [011133] 10/12/2024 05:36 AM 22 mmol/L 20-29 mmol/L Calcium [[id number]] 10/12/2024 05:36 AM 9.7 mg/dL 8.6-10.2 mg/dL Protein, Total [922745] 10/12/2024 05:38 AM 7.4 g/dL 6.0-8.5 g/dL Albumin [552328] 10/12/2024 05:37 AM 4.4 g/dL 3.8-4.8 g/dL Globulin, Total [[id number]] 10/12/2024 05:38 AM 3.0 g/dL 1.5-4.5 g/dL Bilirubin, Total [794484] 10/12/2024 05:37 AM 0.7 mg/dL 0.0-1.2 mg/dL Alkaline Phosphatase [833418] 10/12/2024 05:37 AM 75 IU/L 44-121 IU/L AST (SGOT) [[id number]] 10/12/2024 05:37 AM 35 IU/L 0-40 IU/L ALT (SGPT) [690582] 10/12/2024 05:38 AM 22 IU/L 0-44 IU/L Lipid Panel[[id number]] Collected: 10/11/2024 05:11 PM Specimen Received: 10/11/2024 05:00 AM Source: [facility] Cholesterol, Total [[id number]] 10/12/2024 05:42 AM 169 mg/dL 100-199 mg/d L Triglycerides [299967] 10/12/2024 05:40 AM 75 mg/dL 0-149 mg/dL HDL Cholesterol [[id number]] 10/12/2024 05:40 AM 39 mg/dL L >39 mg/dL VLDL Cholesterol Antonio [553813] 10/12/2024 05:42 AM 14 mg/dL 5-40 mg/dL LDL Chol Calc ([facility]) [[id number]] 10/12/2024 05:42 AM 116 mg/dL H 0-99 mg/dL Hemoglobin A1c[[id number]] Collected: 10/11/2024 05:11 PM Specimen Received: 10/11/2024 05:00 AM Source: [facility] Hemoglobin A1c [[id number]] 10/12/2024 04:35 AM 6.4 % H 4.8-5.6 % . Prediabetes: 5.7 - 6.4 Kelli betes: >6.4 Glycemic control for adults with diabetes: 7.0 Allergies, adverse reactions, alerts No known allergies and adverse reactions Medications No administered medications reported Vital Signs No vital signs reported Social History No smoking Hx information available
--- OUTSIDE RECORDS SUMMARY | 2025-07-28 10:40 | XMS_ITS | Continuity of Care Document ---
Author Organization [facility] Address [address] [address] Insurance Providers Payer Plan Claims Address Claims Phone Policy Number Group Number Relation Employer Guarantor Name Guarantor Guarantor Address Guarantor Phone MCR (WNR) MCR (WNR) tel:[phone] [id number] Self Leandro Fernandez [address] [place] [address] [id number] MCR (WNR) MCR (WNR) [phone] [id number] Self Leandro Fernandez [address] [place] [address] [id number] MCR (WNR) MCR (WNR) [facility] [address] tel:[phone] [id number] Self Leandro Fernandez [address] [place] [address] [id number] Problems Unknown Problems Results Test Result Date/Time Value / Unit Interp. Refere moe Range Comp. Metabolic Panel (14)[[id number]] Collected: 10/11/2024 05:11 PM Specimen Received: 10/11/2024 05:00 AM Source: [facility] Glucose [[id number]] 10/12/2024 05:36 AM 118 mg/dL H 70-99 mg/dL BUN [[id number]] 10/12/2024 05:37 AM 24 mg/dL 8-2 7 mg/dL Creatinine [[id number]] 10/12/2024 05:37 AM 1.01 mg/dL 0.76-1.27 mg/dL eGFR [[id number]] 10/12/2024 05:37 AM 76 mL/min/1.73 >59 mL/min/1.73 BUN/Creatinine Ratio [465842] 10/12/2024 05:37 AM 24 10-24 Sodium [[id number]] 10/12/2024 04:40 AM 142 mmol/L 134-144 mmol/L Potassium [200519] 10/12/2024 04:40 AM 5.0 mmol/L 3.5-5.2 mmol/L Chloride [496643] 10/12/2024 04:39 AM 104 mmol/L 96-106 mmol/L Carbon Dioxide, Total [[id number]] 10/12/2024 05:36 AM 22 mmol/L 20-29 mmol/L Calcium [[id number]] 10/12/2024 05:36 AM 9.7 mg/dL 8.6-10.2 mg/dL Protein, Total [[id number]] 10/12/2024 05:38 AM 7.4 g/dL 6.0-8.5 g/dL Albumin [587889] 10/12/2024 05:37 AM 4.4 g/dL 3.8-4.8 g/dL Globulin, Total [[id number]] 10/12/2024 05:38 AM 3.0 g/dL 1.5-4.5 g/dL Bilirubin, Total [[id number]] 10/12/2024 05:37 AM 0.7 mg/dL 0.0-1.2 mg/dL Alkaline Phosphatase [606073] 10/12/2024 05:37 AM 75 IU/L 44-121 IU/L AST (SGOT) [790147] 10/12/2024 05:37 AM 35 IU/L 0-40 IU/L ALT (SGPT) [[id number]] 10/12/2024 05:38 AM 22 IU/L 0-44 IU/L Lipid Panel[[id number]] Collected: 10/11/2024 05:11 PM Specimen Received: 10/11/2024 05:00 AM Source: [facility] Cholesterol, Total [[id number]] 10/12/2024 05:42 AM 169 mg/dL 100-199 mg/d L Triglycerides [703094] 10/12/2024 05:40 AM 75 mg/dL 0-149 mg/dL HDL Cholesterol [007661] 10/12/2024 05:40 AM 39 mg/dL L >39 mg/dL VLDL Cholesterol Antonio [[id number]] 10/12/2024 05:42 AM 14 mg/dL 5-40 mg/dL LDL Chol Calc ([facility]) [[id number]] 10/12/2024 05:42 AM 116 mg/dL H 0-99 mg/dL Hemoglobin A1c[[id number]] Collected: 10/11/2024 05:11 PM Specimen Received: 10/11/2024 05:00 AM Source: [facility] Hemoglobin A1c [[id number]] 10/12/2024 04:35 AM 6.4 % H 4.8-5.6 % . Prediabetes: 5.7 - 6.4 Kelli betes: >6.4 Glycemic control for adults with diabetes: 7.0 Allergies, adverse reactions, alerts No known allergies and adverse reactions Medications No administered medications reported Vital Signs No vital signs reported Social History No smoking Hx information available
== END 2025-07-28 10:28 | disposition home or self-care (01) ==
LOC: HO.HMCFM 09:45
PROVIDERS: PCP Family Medicine; Visit Provider Family Medicine
DX: I48.91 Unspecified atrial fibrillation (principal); I10 Essential (primary) hypertension; I42.9 Cardiomyopathy, unspecified; D64.9 Anemia, unspecified; E78.00 Pure hypercholesterolemia, unspecified; H91.90 Unspecified hearing loss, unspecified ear; R73.03 Prediabetes; Z12.5 Encounter for screening for malignant neoplasm of prostate; Z00.00 Encounter for general adult medical examination without abnormal findings; R74.01 Elevation of levels of liver transaminase levels

== ENCOUNTER → 2025-07-28 09:44 | Outpatient (BNVA) | payer MEDICARE, SELFPAY | PROVIDERS: PCP Family Medicine; Visit Provider Family Medicine | DX: Z00.00 Encounter for general adult medical examination without abnormal findings (principal); R73.03 Prediabetes; D64.9 Anemia, unspecified; I48.91 Unspecified atrial fibrillation; I10 Essential (primary) hypertension; I42.9 Cardiomyopathy, unspecified; E78.00 Pure hypercholesterolemia, unspecified; H91.90 Unspecified hearing loss, unspecified ear; R74.01 Elevation of levels of liver transaminase levels | CPT/HCPCS: 96127; 99212 ==

== ENCOUNTER 2025-08-03 08:39 | Outpatient (AMB) | payer MEDICARE, SELFPAY ==
[2025-08-03 08:53] VITALS: BMI 23.6
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
--- OUTSIDE RECORDS SUMMARY | 2025-08-03 10:01 | XMS_ITS | Clinical Summary ---
Author Organization [facility] Address [address] [place] [address] Care Team Providers Care Java Core Developer Name Role Phone Unavailable Primary Care Provider [...] file Leandro Fernandez Personal/Famil y Self 1945 [address] [place] [address]
== END 2025-08-03 09:31 | disposition home or self-care (01) ==
LOC: HO.HOS 08:40
PROVIDERS: PCP Family Medicine; Visit Provider Orthopaedic Surgery
DX: M19.042 Primary osteoarthritis, left hand (principal); M18.12 Unilateral primary osteoarthritis of first carpometacarpal joint, left hand; M25.642 Stiffness of left hand, not elsewhere classified
CPT/HCPCS: 99203

== ENCOUNTER → 2025-08-03 08:43 | Outpatient (BNV) | payer MEDICARE, SELFPAY | PROVIDERS: Visit Provider Radiology Diagnostic Radiology | DX: M19.042 Primary osteoarthritis, left hand (principal) | CPT/HCPCS: 73130 ==

== ENCOUNTER 2025-08-03 10:25 | Outpatient (REF) | payer MEDICARE, SELFPAY ==
--- NOTE | ~2025-08-03 | XR_ITS ---
EXAMINATION: XR HAND 3 OR MORE VIEWS LEFT HISTORY: M79.642 - Pain in left hand COMPARISON: Comparison is made with the prior examination of the left hand dated 06/10/2025. FINDINGS: Three views of the left hand are submitted. Osseous mineralization is normal. There is no fracture or dislocation. Again seen is severe osteoarthritis of the 1st carpometacarpal joint with joint space narrowing and osteophyte formation. There is moderate narrowing of the 3rd MCP joint. Milder changes are noted involving the MCP joint of the thumb. The soft tissues are unremarkable. XR/XR hand LT min 3V IMPRESSION: Degenerative changes of the left hand as described. Electronically signed by: Ulices Orellana MD 08/03/2025 08:56 AM EDT
--- OUTSIDE RECORDS SUMMARY | 2025-08-04 13:16 | XMS_ITS | Clinical Summary ---
Author Organization [facility] Address [address] [place] [address] Care Team Providers Care Medical Anthropology Director Name Role Phone Unavailable Primary Care Provider [...] file Leandro Fernandez Personal/Famil y Self 1945 [address] [place] [address]
== END 2025-08-03 10:26 | disposition home or self-care (01) ==
LOC: HO.HOSX 10:25
PROVIDERS: Visit Provider Orthopaedic Surgery
DX: M19.042 Primary osteoarthritis, left hand (principal); M18.12 Unilateral primary osteoarthritis of first carpometacarpal joint, left hand; M25.642 Stiffness of left hand, not elsewhere classified; M79.642 Pain in left hand; Z79.01 Long term (current) use of anticoagulants
CPT/HCPCS: 73130; 99202

== ENCOUNTER → 2025-08-15 08:54 | Outpatient (REF) | payer MEDICARE, SELFPAY ==
--- NOTE | 2025-08-15 08:57 | CA_ITS ---
Transthoracic Echocardiogram Patient (Last, First, Middle): Leandro Fernandez, Gender: M Date of : 1945 Age: 80 Procedure Date: 08/15/2025 Procedure Type: Transthoracic Echocardiogram Location: OP Height: 175.26 cm Weight: 72.58 kg BSA: 1.88 m2 Heart Rate: bpm BP: 116 / 65 mmHg Machine Setter Automatic: Referring MD: Lyle Islas MD Symptoms: I42.9 - Cardiomyopathy, unspecified Study Quality: Good ECG Rhythm: Atrial flutter Conclusions: - The left ventricular systolic function is moderately decreased. The calculated ejection fraction is 36% by biplane method. - Moderate biatrial enlargement. - No obvious valvular pathology seen on this study. Findings Left Ventricle Normal left ventricular cavity size. There is mildly increased left ventricular wall thickness. The left ventricular systolic function is moderately decreased. The calculated ejection fraction is 36% by biplane method. There is moderate global hypokinesis. Diastolic function is indeterminate on the basis of available data. Right Ventricle Normal right ventricular cavity size and systolic function. Atria Moderate biatrial enlargement. Aortic Valve There is a normal trileaflet aortic valve. There is mild calcification of the aortic valve. There is no aortic valve stenosis. There is trace (trivial) aortic valve regurgitation. Mitral Valve The mitral valve appears normal. There is trace mitral valve regurgitation. There is no mitral valve stenosis. Pulmonic Valve The pulmonic valve is likely normal. Tricuspid Valve There is mild tricuspid valve regurgitation. There is no evidence of pulmonary hypertension. Great Vessels The asc aorta is normal in size. Venous The inferior vena cava is normal in size and collapses greater than 50% with inspiration. Pericardium/Pleural There is no evidence of pericardial effusion. Prior Study Comparison No significant change compared to prior study dated: 08/04/2024. Recommendations, Care & Conclusions No obvious valvular pathology seen on this study. Measurements 2D Linear Measurements IVSd: 1.21 0.6-0.9/0.6-1.0 cm LVIDd: 4.64 3.9-5.3/4.2-5.9 cm LVIDd Index: 2.47 2.4-3.2/2.2-3.1 cm/m2 LVIDs: 3.07 2.0-3.6 cm LVPWd: 1.25 0.7-1.1 cm Ao Root: 3.00 2.1-3.5 cm LA Diam: 4.70 2.7-3.8/3.0-4.0 cm LAIDs Index: 2.50 1.5-2.3 cm/m2 LV Mass: 268.33 67-162/88-224 g LV Mass Index: 142.73 43-95/49-115 g/m2 LVOT Diam: 2.00 3.0+(-)1.3 cm 2D Systolic Function EF 4C: 31.20 >55% EF 2C: 39.60 >55% EF BiP: 35.90 >55% Mitral Valve MV Pk E: 1.03 MV Decel Time: 216.00 E'Lateral: 9.90 E'Medial: 4.57 E/E' Med: 22.50 E/E' Lat: 10.40 PHT: 63.00 MVA PHT: 3.49 Decel Monona: 4.79 Aortic Valve AoV Pk Ramos: 1.55 AoV Mn Ramos: 1.05 AoV VTI: 0.32 AoV Pk Grad: 10.00 Aov Mn Grad: 5.00 KOLE Cont.VTI: 1.76 LVOT LVOT Pk Ramos: 0.87 LVOT Mn Ramos: 0.55 LVOT VTI: 0.18 LVOT Pk Grad: 3.00 LVOT Mn Grad: 2.00 LVOT Diam: 2.00 LVOT Area: 3.14 Diastolic Function MV Pk E: 1.03 E'Medial: 4.57 E/E' Med: 22.50 E' Laterial: 9.90 E/E' Lat: 10.40 Right Ventricle TAPSE (mm): 19.00 TVS' Ramos: 8.00 Tricuspid Valve TR Pk Ramos: 2.64 TR Pk Grad: 28.00 RA Press: 3.00 RVSP: 31.00 Great Vessels Aorta Ao Root-2D: 3.00 2.0-3.7 cm Ao Asc: 2.80 2.1-3.4 cm Pulmonary Valve PV Pk Ramos: 0.94 Peak PV Grad: 4.00 Updated in Other Vendor System with Status of Final Israel Marc MD electronically signed on 08/16/2025 1:55:22 PM with status of Final
--- OUTSIDE RECORDS SUMMARY | 2025-08-15 10:21 | XMS_ITS | Clinical Summary ---
Author Organization [facility] Address [address] [place] [address] Care Team Providers Care Manager Cardiac Cath Name Role Phone Unavailable Primary Care Provider [...] file Leandro Fernandez Personal/Famil y Self 1945 [address] [place] [address]
== END ==
LOC: HO.CARD 08:54
PROVIDERS: PCP Family Medicine; Visit Provider Internal Medicine Cardiovascular Disease
DX: I42.9 Cardiomyopathy, unspecified (principal)
CPT/HCPCS: 93306

== ENCOUNTER → 2025-08-15 08:57 | Outpatient (BNV) | payer MEDICARE, SELFPAY | PROVIDERS: PCP Family Medicine; Visit Provider Internal Medicine | DX: I51.7 Cardiomegaly (principal); I35.8 Other nonrheumatic aortic valve disorders; I36.1 Nonrheumatic tricuspid (valve) insufficiency | CPT/HCPCS: 93306 ==

== ENCOUNTER 2025-08-17 09:40 | Outpatient (AMB) | payer MEDICARE, SELFPAY ==
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
[2025-08-17 10:02] VITALS: BP 120/74; PULSE 52; BMI 24.1
--- OUTSIDE RECORDS SUMMARY | 2025-08-17 11:45 | XMS_ITS | Encounter Summary ---
Author Organization [facility] Address [address] [place] [address] Care Team Providers Care Internal Revenue Service Agent Name Role Phone Yovana Flores MD Primary Care Provider Unavail able Encounter Details Date Type Department Care Team Description 06/27/2021 Pt. Non Urgent Medic al Question Physiatry - [address] [address] Ambrocio Sanford PA-C Social History Tobacco Use [...] on filedocumented in this encounter Care Teams Internal Revenue Service Agent Relationship Specialty Start Date End Date Yovana Flores MD PCP - General Internal Medicine 12/19/16 documented as of this encounter
--- OUTSIDE RECORDS SUMMARY | 2025-08-17 11:45 | XMS_ITS | Encounter Summary ---
Author Organization [facility] Address [address] [place] [address] Care Team Providers Care Grit Removal Operator Name Role Phone Yovana Flores MD Primary Care Provider Unavail able Encounter Details Date Type Department Care Team Description 01/31/2021 Old Medical Records Medical Records [address] [place] [id number] Abstract, Provider Social History Tobacco Use Types [...] on filedocumented in this encounter Care Teams Grit Removal Operator Relationship Specialty Start Date End Date Yovana Flores MD PCP - General Internal Medicine 12/19/16 documented as of this encounter
--- OUTSIDE RECORDS SUMMARY | 2025-08-17 11:45 | XMS_ITS | Encounter Summary ---
Author Organization [facility] Address [address] [place] [address] Care Team Providers Care Chassis Mechanic Name Role Phone Yovana Flores MD Primary Care Provider Unavail able Encounter Details Date Type Department Care Team Description 02/12/2018 Orders Only Adult Medicine [address] [address] Yovana Flores MD Elevated fasting glucose (Primary [...] - 6.0 % 02/12/2018 9:28 AM EDT [facility] Comment: HbA1C VALUES MAY NOT ACCURATELY REFLECT MEAN BLOOD GLUCOSE IN PATIENTS WITH HEMOGLOBIN VARIANTS SUCH HbF, HbS. 02/12/2018 8:12 AM EDT 02/12/2018 8:13 AM EDT Yovana Flores MD [facility] [address] documented in this encounter Visit Diagnoses Diagnosis Elevated fasting glucose- Primary Impaired fasting glucose documented in this encounter Care Teams Chassis Mechanic Relationship Specialty Start Date End Date Yovana Flores MD PCP - General Internal Medicine 12/19/16 documented as of this encounter
--- OUTSIDE RECORDS SUMMARY | 2025-08-17 11:45 | XMS_ITS | Encounter Summary ---
Author Organization [facility] Address [address] [place] [address] Care Team Providers Care Life Skills Coordinator Volunteer Name Role Phone Yovana Flores MD Primary Care Provider Unavail able Encounter Details Date Type Department Care Team Description 06/03/2017 Pt. Non Urgent Medic al Question Adult Medicine [address] [id number] Yovana Flores MD Social History Tobacco Use [...] to take the medication? Thanks. Leandro Fernandez, WILLIAM 1945-- [email or web address] documented in this encounter Plan of Treatment Not on file documented as of this encounter Visit Diagnoses Not on filedocumented in this encounter Care Teams Life Skills Coordinator Volunteer Relationship Specialty Start Date End Date Yovana Flores MD PCP - General Internal Medicine 12/19/16 documented as of this encounter
--- OUTSIDE RECORDS SUMMARY | 2025-08-17 11:45 | XMS_ITS | Encounter Summary ---
Author Organization [facility] Address [address] [place] [address] Care Team Providers Care Chemical Plant Operator Name Role Phone Yovana Flores MD Primary Care Provider Unavail able Encounter Details Date Type Department Care Team Description 08/09/2017 Release of Information Medical Records [address] [place] [address] Abstract, Provider Social History Tobacco Use Types [...] on filedocumented in this encounter Care Teams Chemical Plant Operator Relationship Specialty Start Date End Date Yovana Flores MD PCP - General Internal Medicine 12/19/16 documented as of this encounter
--- OUTSIDE RECORDS SUMMARY | 2025-08-17 11:45 | XMS_ITS | Encounter Summary ---
[facility] Organization [facility] Address [address] [place] [address] Care Team Providers Care Systems Coordinator Name Role Phone Yovana Flores MD Primary Care Provider Unavail able Encounter Details Date Type Department Care Team Description 06/19/2017 Pt. Non Urgent Medic al Question Physiatry - [address] [address] Taz Alves DO Social History Tobacco Use Types Packs/Day Years Used Date Smoking Tobacco: Former Cigarettes 1 30 Smokeless Tobacco: Never Comments:1991 Alcohol Use Standard Drinks/Week Comments Yes 0 (1 standard drink = 0.6 oz pur e alcohol) once in a while. No heavy Sex Assigned at Date Recorded Not on file documented as of this encounter Progress Notes * Rossana Ho L.P.N. - 06/19/2017 2:23 PM EDTFrom: Leandro Fernandez To: Taz Alves DO Sent: 06/19/2017 1:50 PM EDT Subject: still in pain Hi, Knee feels better buy still in pain. Thanks Marcos documented in this encounter Plan of Treatment Not on file documented as of this encounter Visit Diagnoses Not on filedocumented in this encounter Care Teams Systems Coordinator Relationship Specialty Start Date End Date Yovana Flores MD PCP - General Internal Medicine 12/19/16 documented as of this encounter
--- OUTSIDE RECORDS SUMMARY | 2025-08-17 11:45 | XMS_ITS | Encounter Summary ---
Author Organization [facility] Address [address] [place] [address] Care Team Providers Care Last Waxer Name Role Phone Name, Alex SOUZA Primary Care Provider Unavailabl e Yovana Flores MD Primary Care Provider Unavail able Encounter Details Date Type Department Care Team Description [facility]/28[facility] [address] [place] [address] Md Shashank Social History Tobacco Use Types [...] on filedocumented in this encounter Care Teams Last Waxer Relationship Specialty Start Date End Date Name, MD Alex PCP - General 05/30/09 12/18/16 Yovana Flores MD PCP - General Internal Medicine 12/19/16 documented as of this encounter
--- OUTSIDE RECORDS SUMMARY | 2025-08-17 11:45 | XMS_ITS | Clinical Summary ---
Author Organization [facility] Address [address] [place] [address] Care Team Providers Care Sales Architect Name Role Phone Unavailable Primary Care Provider [...] file Leandro Fernandez Personal/Famil y Self 1945 [address] [place] [address]
--- OUTSIDE RECORDS SUMMARY | 2025-08-17 11:45 | XMS_ITS | Encounter Summary ---
[facility] Address [address] [place] [address] Care Team Providers Care Pack Press Operator Name Role Phone Name, Alex SOUZA Primary Care Provider Unavailabl e Yovana Flores MD Primary Care Provider Unavail able Encounter Details Date Type Department Care Team Description 06/13/2014 Echocardiograph Technician Report Medical Records [address] [place] [address] Mackenzie Broderick MD Social History Tobacco Use [...] on filedocumented in this encounter Care Teams Pack Press Operator Relationship Specialty Start Date End Date Name, MD Alex PCP - General 05/30/09 12/18/16 Yovana Flores MD PCP - General Internal Medicine 12/19/16 documented as of this encounter
--- OUTSIDE RECORDS SUMMARY | 2025-08-17 11:45 | XMS_ITS | Encounter Summary ---
Author Organization [facility] Address [address] [place] [address] Care Team Providers Care Business Analytics Manager Name Role Phone Yovana Flores MD Primary Care Provider Unavail able Encounter Details Date Type Department Care Team Description 06/10/2017 Pt. Non Urgent Medic al Question Adult Medicine [address] [address] Yovana Flores MD Social History Tobacco Use [...] on filedocumented in this encounter Care Teams Business Analytics Manager Relationship Specialty Start Date End Date Yovana Flores MD PCP - General Internal Medicine 12/19/16 documented as of this encounter
--- OUTSIDE RECORDS SUMMARY | 2025-08-17 11:45 | XMS_ITS | Encounter Summary ---
Author Organization [facility] Address [address] [place] [address] Care Team Providers Care Mixer Diamond Powder Name Role Phone Yovana Flores MD Primary Care Provider Unavail able Encounter Details Date Type Department Care Team Description 05/26/2017 Pt. Non Urgent Medic al Question Physiatry - [address] [address] Taz Alves DO Social History Tobacco Use [...] on filedocumented in this encounter Care Teams Mixer Diamond Powder Relationship Specialty Start Date End Date Yovana Flores MD PCP - General Internal Medicine 12/19/16 documented as of this encounter
--- OUTSIDE RECORDS SUMMARY | 2025-08-17 11:45 | XMS_ITS | Encounter Summary ---
Author Organization [facility] Address [address] [place] [address] Care Team Providers Care Rf Technician Name Role Phone Yovana Flores MD Primary Care Provider Unavail able Encounter Details Date Type Department Care Team Description 12/22/2018 Release of Information Medical Records [address] [place] [address] Abstract, Provider Social History Tobacco Use Types [...] on filedocumented in this encounter Care Teams Rf Technician Relationship Specialty Start Date End Date Yovana Flores MD PCP - General Internal Medicine 12/19/16 documented as of this encounter
== END 2025-08-17 10:20 | disposition home or self-care (01) ==
LOC: HO.HCS 09:41
PROVIDERS: PCP Family Medicine; Visit Provider Internal Medicine Cardiovascular Disease
DX: I42.9 Cardiomyopathy, unspecified (principal); I48.92 Unspecified atrial flutter; Z01.810 Encounter for preprocedural cardiovascular examination
CPT/HCPCS: 93010; 99214; G2211

== ENCOUNTER 2025-08-17 09:40 | Outpatient (REF) | payer MEDICARE, SELFPAY ==
[2025-08-17 11:26] LABS: Digoxin 0.9 ng/mL (0.8-2.0)
[2025-08-17 11:41] LABS: Anion Gap 12 (12-20); Blood Urea Nitrogen 29 mg/dL (9-16); Calcium 9.6 mg/dL (8.4-10.2); Carbon Dioxide 28 mmol/L (22-29); Chloride 107 mmol/L (96-108); Estimated Glomerular Filt Rate > 60; Potassium 4.6 mmol/L (3.3-5.1); Sodium 142 mmol/L (135-145)
== END 2025-08-17 09:41 | disposition home or self-care (01) ==
LOC: HO.LAB 09:40
PROVIDERS: PCP Family Medicine; Visit Provider Internal Medicine Cardiovascular Disease
DX: I48.92 Unspecified atrial flutter (principal); I48.20 Chronic atrial fibrillation, unspecified; I42.9 Cardiomyopathy, unspecified; Z79.899 Other long term (current) drug therapy; Z79.01 Long term (current) use of anticoagulants
CPT/HCPCS: 36415; 80048; 80162; 93005; 99212

== ENCOUNTER 2025-08-25 08:37 | Outpatient (REF) | payer MEDICARE, SELFPAY ==
--- OUTSIDE RECORDS SUMMARY | 2025-08-26 08:57 | XMS_ITS | Clinical Summary ---
Author Organization [facility] Address [address] [place] [address] Care Team Providers Care Steel Die Engraver Name Role Phone Unavailable Primary Care Provider [...] file Leandro Fernandez Personal/Famil y Self 1945 [address] [place] [address]
== END 2025-08-25 08:38 | disposition home or self-care (01) ==
LOC: HO.HOSX 08:37
PROVIDERS: Visit Provider Physician Assistant
DX: Z13.89 Encounter for screening for other disorder (principal)

== ENCOUNTER 2025-08-30 08:17 | Outpatient (AMB) | payer MEDICARE, SELFPAY ==
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
[2025-08-30 08:35] VITALS: BMI 24.1
--- OUTSIDE RECORDS SUMMARY | 2025-08-30 08:37 | XMS_ITS | Encounter Summary ---
Author Organization [facility] Address [address] [place] [address] Care Team Providers Care Forklift Mechanic Name Role Phone Yovana Flores MD Primary Care Provider Unavail able Reason for Visit * Reason Onset Date Comments injection 08/07/2021 Encounter Details Date Type Department Care Team Description 08/07/2021 Telephone Physiatry - [place] [address] [place] [phone] Ambrocio Sanford PA-C injection Social History Tobacco [...] on filedocumented in this encounter Care Teams Forklift Mechanic Relationship Specialty Start Date End Date Yovana Flores MD PCP - General Internal Medicine 12/19/16 documented as of this encounter
--- OUTSIDE RECORDS SUMMARY | 2025-08-30 08:37 | XMS_ITS | Clinical Summary ---
Author Organization [facility] Address [address] [place] [address] Care Team Providers Care Crystal Slicer Name Role Phone Yovana Flores MD Primary [...] Hx Diabetes Negative Hx Hypertension Negative Hx [place] Negative Hx Mental Disorder Negative Hx Sleep [...] VACCINE Completed 12/19/2016, 08/20/20 11 Care Teams Crystal Slicer Relationship Specialty Start Date End Date Yovana Flores MD PCP - General Internal Medicine 12/19/16
--- OUTSIDE RECORDS SUMMARY | 2025-08-30 08:37 | XMS_ITS | Encounter Summary ---
Author Organization [facility] Address [address] [place] [address] Care Team Providers Care Public Health Educator Name Role Phone Yovana Flores MD Primary Care Provider Unavail able Reason for Visit * Reason Onset Date Comments Medication 01/21/2020 Colonoscopy Encounter Details Date Type Department Care Team Description 01/21/2020 Refill Gastroenterology - [address] [place] [address] Amee Wlofe MD [address] [place] [address] [phone] Medication (Colonoscopy) Social History Tobacco Use Types Packs/Day Years [...] on filedocumented in this encounter Care Teams Public Health Educator Relationship Specialty Start Date End Date Yovana Flores MD PCP - General Internal Medicine 12/19/16 documented as of this encounter
--- OUTSIDE RECORDS SUMMARY | 2025-08-30 08:37 | XMS_ITS | Encounter Summary ---
Author Organization [facility] Address [address] [place] [address] Care Team Providers Care Infrastructure Tech Name Role Phone Yovana Flores MD Primary Care Provider Unavail able Encounter Details Date Type Department Care Team Description 05/21/2021 Pt. Non Urgent Medic al Question Physiatry - [address] [address] Ambrocio Sanford PA-C Social History Tobacco Use [...] on filedocumented in this encounter Care Teams Infrastructure Tech Relationship Specialty Start Date End Date Yovana Flores MD PCP - General Internal Medicine 12/19/16 documented as of this encounter
--- OUTSIDE RECORDS SUMMARY | 2025-08-30 08:38 | XMS_ITS | Encounter Summary ---
Author Organization [facility] Address [address] [place] [address] Care Team Providers Care Ase Master Mechanic Name Role Phone Yovana Flores MD Primary Care Provider Unavail able Encounter Details Date Type Department Care Team Description 08/09/2017 Release of Information Medical Records [address] [place] [address] Abstract, Provider Social History Tobacco Use Types [...] on filedocumented in this encounter Care Teams Ase Master Mechanic Relationship Specialty Start Date End Date Yovana Flores MD PCP - General Internal Medicine 12/19/16 documented as of this encounter
--- OUTSIDE RECORDS SUMMARY | 2025-08-30 08:38 | XMS_ITS | Encounter Summary ---
[facility] Organization [facility] Address [address] [place] [address] Care Team Providers Care Elementary School Science Teacher Name Role Phone Name, Alex SOUZA Primary Care Provider Unavailabl e Yovana Flores MD Primary Care Provider Unavail able Encounter Details Date Type Department Care Team Description 03/28/2014 [facility] [address] [place] [address] Md Shashank Social History Tobacco Use Types [...] on filedocumented in this encounter Care Teams Elementary School Science Teacher Relationship Specialty Start Date End Date Name, MD Alex PCP - General 05/30/09 12/18/16 Yovana Flores MD PCP - General Internal Medicine 12/19/16 documented as of this encounter
--- OUTSIDE RECORDS SUMMARY | 2025-08-30 08:38 | XMS_ITS | Encounter Summary ---
Author Organization [facility] Address [address] [place] [address] Care Team Providers Care Tractor Drill Operator Name Role Phone Yovana Flores MD Primary Care Provider Unavail able Encounter Details Date Type Department Care Team Description 07/15/2018 Pt. Non Urgent Medic al Question Physiatry - [address] [address] Taz Alves DO Social History Tobacco Use [...] on filedocumented in this encounter Care Teams Tractor Drill Operator Relationship Specialty Start Date End Date Yovana Flores MD PCP - General Internal Medicine 12/19/16 documented as of this encounter
--- OUTSIDE RECORDS SUMMARY | 2025-08-30 08:38 | XMS_ITS | Encounter Summary ---
Author Organization [facility] Address [address] [place] [address] Care Team Providers Care Netsuite Developer Name Role Phone Name, Alex SOUZA Primary Care Provider Unavailabl e Yovana Flores MD Primary Care Provider Unavail able Encounter Details Date Type Department Care Team Description 05/03/2014 Transfusion Nurse Report Medical Records [address] [place] [address] Mackenzie Broderick MD Social History Tobacco Use [...] on filedocumented in this encounter Care Teams Netsuite Developer Relationship Specialty Start Date End Date Name, MD Alex PCP - General 05/30/09 12/18/16 Yovana Flores MD PCP - General Internal Medicine 12/19/16 documented as of this encounter
--- OUTSIDE RECORDS SUMMARY | 2025-08-30 08:38 | XMS_ITS | Encounter Summary ---
Author Organization [facility] Address [address] [place] [address] Care Team Providers Care Orientor Name Role Phone Yovana Flores MD Primary Care Provider Unavail able Encounter Details Date Type Department Care Team Description 02/12/2018 Orders Only Adult Medicine [address] [address] Yovana Flores MD Elevated fasting glucose (Primary [...] - 6.0 % 02/12/2018 9:28 AM EDT [facility] Comment: HbA1C VALUES MAY NOT ACCURATELY REFLECT MEAN BLOOD GLUCOSE IN PATIENTS WITH HEMOGLOBIN VARIANTS SUCH HbF, HbS. 02/12/2018 8:12 AM EDT 02/12/2018 8:13 AM EDT Yovana Flores MD LAB [facility] [address] documented in this encounter Visit Diagnoses Diagnosis Elevated fasting glucose- Primary Impaired fasting glucose documented in this encounter Care Teams Orientor Relationship Specialty Start Date End Date Yovana Flores MD PCP - General Internal Medicine 12/19/16 documented as of this encounter
--- OUTSIDE RECORDS SUMMARY | 2025-08-30 08:38 | XMS_ITS | Encounter Summary ---
Author Organization [facility] Address [address] [place] [address] Care Team Providers Care Park Recreation Manager Name Role Phone Name, Alex SOUZA Primary Care Provider Unavailabl e Yovana Flores MD Primary Care Provider Unavail able Encounter Details Date Type Department Care Team Description 04/19/2014 Light Truck Driver Report Medical Records [address] [place] [id number] Mackenzie Broderick MD Social History Tobacco Use [...] on filedocumented in this encounter Care Teams Park Recreation Manager Relationship Specialty Start Date End Date Name, MD Alex PCP - General 05/30/09 12/18/16 Yovana Flores MD PCP - General Internal Medicine 12/19/16 documented as of this encounter
--- OUTSIDE RECORDS SUMMARY | 2025-08-30 08:38 | XMS_ITS | Encounter Summary ---
Author Organization [facility] Address [address] [place] [address] Care Team Providers Care Route Supervisor Name Role Phone Yovana Flores MD Primary Care Provider Unavail able Encounter Details Date Type Department Care Team Description 05/26/2017 Pt. Non Urgent Medic al Question Physiatry - [address] [address] Taz Alves DO Social History Tobacco Use [...] on filedocumented in this encounter Care Teams Route Supervisor Relationship Specialty Start Date End Date Yovana Flores MD PCP - General Internal Medicine 12/19/16 documented as of this encounter
--- OUTSIDE RECORDS SUMMARY | 2025-08-30 08:38 | XMS_ITS | Encounter Summary ---
Author Organization [employer] [facility] Address [address] [place] [address] Care Team Providers Care Graphic Design Intern Name Role Phone Yovana Flores MD Primary Care Provider Unavail able Encounter Details Date Type Department Care Team Description 06/10/2017 Pt. Non Urgent Medic al Question Adult Medicine [address] [address] Yovana Flores MD Social History Tobacco Use [...] on filedocumented in this encounter Care Teams Graphic Design Intern Relationship Specialty Start Date End Date Yovana Flores MD PCP - General Internal Medicine 12/19/16 documented as of this encounter
--- OUTSIDE RECORDS SUMMARY | 2025-08-30 08:38 | XMS_ITS | Encounter Summary ---
Author Organization [facility] Address [address] [place] [address] Care Team Providers Care Produce Buyer Name Role Phone Yovana Flores MD Primary Care Provider Unavail able Encounter Details Date Type Department Care Team Description 01/28/2020 Orders Only Medical Records [address] [place] [address] Amee Wolfe MD [address], [place] [id number] Social History Tobacco Use Types Packs/Day Years [...] Certified Gastroenterology and Internal Medicine Transplant Hepatology [facility] documented in this encounter Plan of Treatment Not on file documented as of this encounter Procedures Procedure Name Priority Date/Time Associated Diagnosis Comments OUTSIDE PATHOLOGY Routine 01/26/2020 documented in this encounter Results * OUTSIDE PATHOLOGY (01/26/2020) H Erwin Wolfe MD OUTSIDE LAB documented in this encounter Visit Diagnoses Not on filedocumented in this encounter Care Teams Produce Buyer Relationship Specialty Start Date End Date Yovana Flores MD PCP - General Internal Medicine 12/19/16 documented as of this encounter
--- OUTSIDE RECORDS SUMMARY | 2025-08-30 08:39 | XMS_ITS | Clinical Summary ---
Author Organization [facility] Address [address] [place] [address] Care Team Providers Care Cell Repairer Name Role Phone Unavailable Primary Care Provider [...] file Leandro Fernandez Personal/Famil y Self 1945 [address] [place] [address]
== END 2025-08-30 09:25 | disposition home or self-care (01) ==
LOC: HO.HOS 08:18
PROVIDERS: PCP Family Medicine; Visit Provider Physician Assistant
DX: M16.12 Unilateral primary osteoarthritis, left hip (principal)
CPT/HCPCS: 99214

== ENCOUNTER → 2025-08-30 08:19 | Outpatient (BNV) | payer MEDICARE, SELFPAY | PROVIDERS: Visit Provider Radiology Diagnostic Ultrasound | DX: M16.12 Unilateral primary osteoarthritis, left hip (principal); Z96.641 Presence of right artificial hip joint | CPT/HCPCS: 73502 ==

== ENCOUNTER 2025-08-30 10:37 | Outpatient (REF) | payer MEDICARE, SELFPAY ==
--- NOTE | ~2025-08-30 | XR_ITS ---
EXAMINATION: XR HIP, LEFT CLINICAL INFORMATION: M25.559 - Pain in unspecified hip COMPARISON: X-ray 06/10/2025 TECHNIQUE: Pelvis 2 AP views, left hip 2 views . FINDINGS: Right total hip arthroplasty with expected position alignment. No acute periprosthetic fracture. No suspicious perihardware lucencies. Severe left hip arthritis, joint space loss, osteophytes, sclerosis, cyst. There is mixed lucency and sclerosis in the femoral head to arthritis, component of avascular necrosis cannot be excluded. Redemonstrated mild calcified enthesopathy of the greater trochanter. SI joints and symphysis pubis are intact. Spondylosis in the visualized lower lumbar spine. No suspicious soft tissue calcifications. Vascular calcifications. XR/XR hip LT min 2V IMPRESSION: 1. Severe left hip arthritis. Component of avascular necrosis in the femoral head cannot be excluded. 2. Right total hip arthroplasty without evidence of acute periprosthetic fracture or suspicious perihardware lucencies. Electronically signed by: Du Thibodeaux MD 08/30/2025 09:48 AM EDT
== END 2025-08-30 10:38 | disposition home or self-care (01) ==
LOC: HO.HOSX 10:37
PROVIDERS: Visit Provider Physician Assistant
DX: M16.12 Unilateral primary osteoarthritis, left hip (principal); Z96.641 Presence of right artificial hip joint; Z79.899 Other long term (current) drug therapy
CPT/HCPCS: 73502; 99212

== ENCOUNTER 2025-10-04 09:38 | Outpatient (AMB) | payer MEDICARE, SELFPAY ==
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
[2025-10-04 10:08] VITALS: BMI 24.1
== END 2025-10-04 11:29 | disposition home or self-care (01) ==
LOC: HO.HOS 09:39
PROVIDERS: Visit Provider Orthopaedic Surgery
DX: M19.042 Primary osteoarthritis, left hand (principal); M18.12 Unilateral primary osteoarthritis of first carpometacarpal joint, left hand; M25.642 Stiffness of left hand, not elsewhere classified
CPT/HCPCS: 20600; 77002; 99213

== ENCOUNTER 2025-10-04 09:38 | Outpatient (REF) | payer MEDICARE, SELFPAY ==
--- NOTE | ~2025-10-04 | FL_ITS ---
EXAMINATION: Fluoroscopy left hand CLINICAL INFORMATION: Primary osteoarthritis COMPARISON: X-ray 08/03/2025 TECHNIQUE: Fluoroscopic time: 13 seconds [id number] Gycm2 Images: 1 FINDINGS: Fluoroscopy provided for procedure. There is a needle projected over the third metacarpal head, the fourth and fifth proximal index. A radiologist was not present during imaging. Today's dictation is only for administrative purposes to document intraoperative fluoroscopy. FL/FL guided needle placement IMPRESSION: Fluoroscopy provided for procedure. Please see procedure note for details findings. Electronically signed by: Du Thibodeaux MD 10/05/2025 07:31 AM JACOB
--- OUTSIDE RECORDS SUMMARY | 2025-10-04 12:01 | XMS_ITS | Continuity of Care Document ---
Author Organization [facility] Address [address] [address] Insurance Providers Payer Plan Claims Address Claims Phone Policy Number Group Number Relation Employer Guarantor Name Guarantor Guarantor Address Guarantor Phone MCR (WNR) MCR (WNR) tel:[phone] [id number] 35 Self Leandro Fernandez [address] [place] [address] [id number] MCR (WNR) MCR (WNR) [phone] [id number] 35 Self Leandro Fernandez [address] [place] [address] [id number] MCR (WNR) MCR (WNR) [facility];[address] [address] tel:[phone] [id number] [phone] [id number] [id number] Self Leandro Fernandez [address] [place] [address] [id number] Problems Unknown Problems Results Test Result Date/Time Value / Unit Interp. Refere nde Range Comp. Metabolic Panel (14)[[id number]] Collected: 10/11/2024 05:11 PM Specimen Received: 10/11/2024 05:00 AM Source: [facility] Glucose [[id number]] 10/12/2024 05:36 AM 118 mg/dL H 70-99 mg/dL BUN [[id number]] 10/12/2024 05:37 AM 24 mg/dL 8-2 7 mg/dL Creatinine [[id number]] 10/12/2024 05:37 AM 1.01 mg/dL 0.76-1.27 mg/dL eGFR [[id number]] 10/12/2024 05:37 AM 76 mL/min/1.73 >59 mL/min/1.73 BUN/Creatinine Ratio [136641] 10/12/2024 05:37 AM 24 10-24 Sodium [[id number]] 10/12/2024 04:40 AM 142 mmol/L 134-144 mmol/L Potassium [[id number]] 10/12/2024 04:40 AM 5.0 mmol/L 3.5-5.2 mmol/L Chloride [[id number]] 10/12/2024 04:39 AM 104 mmol/L 96-106 mmol/L Carbon Dioxide, Total [759329] 10/12/2024 05:36 AM 22 mmol/L 20-29 mmol/L Calcium [[id number]] 10/12/2024 05:36 AM 9.7 mg/dL 8.6-10.2 mg/dL Protein, Total [[id number]] 10/12/2024 05:38 AM 7.4 g/dL 6.0-8.5 g/dL Albumin [529572] 10/12/2024 05:37 AM 4.4 g/dL 3.8-4.8 g/dL Globulin, Total [[id number]] 10/12/2024 05:38 AM 3.0 g/dL 1.5-4.5 g/dL Bilirubin, Total [139480] 10/12/2024 05:37 AM 0.7 mg/dL 0.0-1.2 mg/dL Alkaline Phosphatase [[id number]] 10/12/2024 05:37 AM 75 IU/L 44-121 IU/L AST (SGOT) [[id number]] 10/12/2024 05:37 AM 35 IU/L 0-40 IU/L ALT (SGPT) [112151] 10/12/2024 05:38 AM 22 IU/L 0-44 IU/L Lipid Panel[[id number]] Collected: 10/11/2024 05:11 PM Specimen Received: 10/11/2024 05:00 AM Source: [facility] Cholesterol, Total [[id number]] 10/12/2024 05:42 AM 169 mg/dL 100-199 mg/d L Triglycerides [229298] 10/12/2024 05:40 AM 75 mg/dL 0-149 mg/dL HDL Cholesterol [[id number]] 10/12/2024 05:40 AM 39 mg/dL L >39 mg/dL VLDL Cholesterol Antonio [014691] 10/12/2024 05:42 AM 14 mg/dL 5-40 mg/dL LDL Chol Calc ([facility]) [[id number]] 10/12/2024 05:42 AM 116 mg/dL H 0-99 mg/dL Hemoglobin A1c[235134] Collected: 10/11/2024 05:11 PM Specimen Received: 10/11/2024 05:00 AM Source: [facility] Hemoglobin A1c [[id number]] 10/12/2024 04:35 AM 6.4 % H 4.8-5.6 % . Prediabetes: 5.7 - 6.4 Kelli betes: >6.4 Glycemic control for adults with diabetes: 7.0 Allergies, adverse reactions, alerts No known allergies and adverse reactions Medications No administered medications reported Vital Signs No vital signs reported Social History No smoking Hx information available
== END 2025-10-04 09:39 | disposition home or self-care (01) ==
LOC: HO.HOSX 09:38
PROVIDERS: Visit Provider Orthopaedic Surgery
DX: M19.042 Primary osteoarthritis, left hand (principal); M18.12 Unilateral primary osteoarthritis of first carpometacarpal joint, left hand; M25.642 Stiffness of left hand, not elsewhere classified
CPT/HCPCS: 20600; 77002; 99212; J1100; J2003

== ENCOUNTER → 2025-10-04 10:29 | Outpatient (BNV) | payer MEDICARE, SELFPAY | PROVIDERS: Visit Provider Radiology Diagnostic Ultrasound | DX: M19.042 Primary osteoarthritis, left hand (principal) | CPT/HCPCS: 77002 ==

== ENCOUNTER 2025-10-06 07:58 | Outpatient (REF) | payer MEDICARE, SELFPAY ==
--- OUTSIDE RECORDS SUMMARY | 2025-10-06 08:01 | XMS_ITS | Clinical Summary ---
Author Organization [facility] Address [address] [place] [address] Care Team Providers Care Hospice Rn Name Role Phone Unavailable Primary Care Provider [...] file Leandro Fernandez Personal/Famil y Self 1945 [address] [place] [address]
[2025-10-06 12:02] LABS: Alanine Aminotransferase 26 U/L (0-40); Albumin Level 4.6 g/dL (3.5-5.0); Alkaline Phosphatase 53 U/L (39-117); Anion Gap 14 (12-20); Aspartate Amino Transferase 52 U/L (5-37); Blood Urea Nitrogen 35 mg/dL (9-16); Calcium 9.6 mg/dL (8.4-10.2); Carbon Dioxide 26 mmol/L (22-29); Chloride 106 mmol/L (96-108); Cholesterol 112 mg/dL (<200); Estimated Glomerular Filt Rate 58; HDL Cholesterol 38 mg/dL (>40); Potassium 3.9 mmol/L (3.3-5.1); Sodium 142 mmol/L (135-145); Total Protein 7.8 g/dL (6.5-8.0); Triglycerides 68 mg/dL (<150)
[2025-10-06 15:05] LABS: Appearance Urine Clear; Glucose Urine UA Negative (Negative); PH 5.5 (5.0-9.0); Specific Gravity - Urine 1.020 (1.005-1.025)
[2025-10-06 15:27] LABS: Microalbum/Creatinine Ratio Ur 7.9 ug/mg cr (<30)
== END 2025-10-06 07:59 | disposition home or self-care (01) ==
LOC: HO.WFDLDS 07:58
PROVIDERS: Visit Provider Family Medicine
DX: Z00.00 Encounter for general adult medical examination without abnormal findings (principal); R73.01 Impaired fasting glucose; R73.03 Prediabetes; E78.00 Pure hypercholesterolemia, unspecified; I10 Essential (primary) hypertension
CPT/HCPCS: 36415; 80053; 80061; 81003; 82043; 82570; 83036

== ENCOUNTER 2025-10-12 08:37 | Outpatient (AMB) | payer MEDICARE, SELFPAY ==
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
[2025-10-12 09:01] VITALS: BP 110/60; PULSE 50; RESP 14; TEMP 36.5; O2SAT 95; BMI 24.6
--- OUTSIDE RECORDS SUMMARY | 2025-10-12 16:21 | XMS_ITS | Clinical Summary ---
Author Organization [facility] Address [address] [place] [address] Care Team Providers Care Deckhand Fishing Vessel Name Role Phone Unavailable Primary Care Provider [...] file Leandro Fernandez Personal/Famil y Self 1945 [address] [place] [address]
== END 2025-10-12 09:28 | disposition home or self-care (01) ==
LOC: HO.HMCFM 08:38
PROVIDERS: PCP Family Medicine; Visit Provider Family Medicine
DX: I10 Essential (primary) hypertension (principal); R73.03 Prediabetes; R74.01 Elevation of levels of liver transaminase levels; E78.6 Lipoprotein deficiency; M16.12 Unilateral primary osteoarthritis, left hip; I42.9 Cardiomyopathy, unspecified; I48.92 Unspecified atrial flutter; Z12.11 Encounter for screening for malignant neoplasm of colon

== ENCOUNTER → 2025-10-12 08:37 | Outpatient (BNVA) | payer MEDICARE, SELFPAY | PROVIDERS: PCP Family Medicine; Visit Provider Family Medicine | DX: Z12.11 Encounter for screening for malignant neoplasm of colon (principal); I10 Essential (primary) hypertension; R73.03 Prediabetes; R74.01 Elevation of levels of liver transaminase levels; E78.6 Lipoprotein deficiency; M16.12 Unilateral primary osteoarthritis, left hip; I42.9 Cardiomyopathy, unspecified; I48.92 Unspecified atrial flutter | CPT/HCPCS: 99212 ==

== ENCOUNTER 2025-11-14 10:57 | Outpatient (AMB) | payer MEDICARE, SELFPAY ==
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
[2025-11-14 11:21] VITALS: BP 123/58; PULSE 55; RESP 16; TEMP 36.6; O2SAT 98; BMI 24.1
--- OUTSIDE RECORDS SUMMARY | 2025-11-14 13:49 | XMS_ITS | Clinical Summary ---
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
== END 2025-11-14 12:15 | disposition home or self-care (01) ==
LOC: HO.HMCFM 10:58
PROVIDERS: PCP Family Medicine; Visit Provider Family Medicine
DX: Z01.818 Encounter for other preprocedural examination (principal); E78.00 Pure hypercholesterolemia, unspecified

== ENCOUNTER → 2025-11-14 10:57 | Outpatient (BNVA) | payer MEDICARE, SELFPAY | PROVIDERS: PCP Family Medicine; Visit Provider Family Medicine | DX: Z01.818 Encounter for other preprocedural examination (principal) | CPT/HCPCS: 99212 ==